=== PATIENT | female | born 1945 | race Caucasian/White ===

== ENCOUNTER 2020-08-09 09:05 | Outpatient (REF) | payer MEDICARE, SELFPAY ==
[2020-08-09 10:10] LABS: MANUAL DIFF FLAG NO
[2020-08-09 10:24] LABS: Basophils Absolute Auto 0.1 X10*3/uL (0.0-0.2); Basophils Percent Auto 1.4 % (0-2); Eosinophils Absolute Auto 0.3 X10*3/uL (0.0-0.4); Eosinophils Percent Auto 3.6 % (0-4); Hematocrit 43.1 % (37-47); Imm Gran Abs Auto 0.09 X10*3/uL (0.00-0.03); Imm Gran Pct Auto 1.2 % (0.0-0.4); Lymphocytes Absolute Auto 2.3 X10*3/uL (1.2-4.9); Lymphocytes Percent Auto 31.1 % (20-40); Mean Corpuscular HGB Conc 32.5 g/dl (31.0-35.0); Mean Corpuscular Volume 89.2 fL (80-98); Mean Platelet Volume 9.8 fL (9.4-12.3); Monocytes Absolute Auto 0.5 X10*3/uL (0.1-1.2); Monocytes Percent Auto 7.3 % (2-11); Neutrophils Percent Auto 55.4 % (45-73); Platelet Count 309 X10*3/uL (160-400); Red Blood Count 4.83 X10*6/uL (4.20-5.50); Red Cell Distribution Width 15.7 % (11.0-16.0); White Blood Count 7.3 X10*3/uL (4.8-10.8)
[2020-08-09 10:41] LABS: Alanine Aminotransferase 23 U/L (0-31); Albumin Level 4.2 g/dL (3.5-5.0); Alkaline Phosphatase 101 U/L (39-117); Anion Gap 14 (12-20); Aspartate Amino Transferase 21 U/L (5-31); Bilirubin Total 0.8 mg/dL (0.0-1.0); Blood Urea Nitrogen 20 mg/dL (9-16); Calcium 9.9 mg/dL (8.4-10.2); Carbon Dioxide 27 mmol/L (22-29); Chloride 104 mmol/L (96-108); Cholesterol 204 mg/dL; Estimated Glomerular Filt Rate 57; Glucose Fasting 91 mg/dL (60-99); HDL Cholesterol 74 mg/dL; LDL Cholesterol Calculated 114 mg/dl; Potassium 4.9 mmol/l (3.3-5.1); Sodium 140 mmol/L (135-145); Total Protein 6.9 g/dL (6.5-8.0); Triglycerides 84 mg/dL
[2020-08-09 11:03] LABS: Vitamin D 25-OH Total 49.4 ng/mL (>30)
[2020-08-09 12:10] LABS: Glucose Urine UA NEG (NEG); Leukocyte Esterase Urine NEG (NEG); Nitrite Urine NEG (NEG); Urine Blood 2+ (NEG); Urine Ketones NEG (NEG); Urine Protein NEG (NEG-TRACE)
[2020-08-09 12:15] LABS: Appearance Urine CLEAR; Color Urine YELLOW
[2020-08-09 12:30] LABS: Squamous Epithelial Cell Urine 1+ /LPF; WBC Urine 0-2 /HPF (0-4)
== END 2020-08-09 09:06 | disposition home or self-care (01) ==
LOC: HO.LAB 09:05
PROVIDERS: PCP Internal Medicine; Visit Provider Internal Medicine
DX: Z00.00 Encounter for general adult medical examination without abnormal findings (principal); I10 Essential (primary) hypertension; J45.20 Mild intermittent asthma, uncomplicated; E55.9 Vitamin D deficiency, unspecified; K21.9 Gastro-esophageal reflux disease without esophagitis; E78.00 Pure hypercholesterolemia, unspecified; R31.29 Other microscopic hematuria; M19.90 Unspecified osteoarthritis, unspecified site; E83.52 Hypercalcemia; N95.8 Other specified menopausal and perimenopausal disorders
CPT/HCPCS: 36415; 80053; 80061; 81001; 81003; 82306; 85025

== ENCOUNTER 2020-08-12 10:04 | Outpatient (REF) | payer MEDICARE, SELFPAY ==
--- NOTE | 2020-08-12 10:08 | MM_ITS ---
EXAMINATION: MM SCREENING DIGITAL BREAST TOMOSYNTHESIS, BILATERAL CLINICAL INFORMATION: Screening. Asymptomatic. The lifetime risk of breast cancer based on the Tyrer-Cuzick Model is 3%. COMPARISON: Mammography: 10/21/2018, 08/28/2017, 06/07/2016 TECHNIQUE: Digital breast tomosynthesis is performed in both the craniocaudal and mediolateral oblique views along with computer-aided detection (CAD). Synthesized 2D images are generated from the tomosynthesis. FINDINGS: The breasts are almost entirely fatty (ACR BI-RADS breast composition Category a). Background stromal and fibroglandular densities are stable. No developing density. There are no significant masses, abnormal calcifications, or other abnormalities. The axilla are unremarkable. MM/MM tomosynthesis screening BI IMPRESSION: No mammographic evidence of malignancy. ASSESSMENT: BI-RADS 1: Negative RECOMMENDATION: Routine annual mammography screening. This patient's information was entered into a reminder system with a target due date for their next mammogram.
== END 2020-08-12 10:05 | disposition home or self-care (01) ==
LOC: HO.MAMMO 10:04
PROVIDERS: Visit Provider Internal Medicine
DX: Z12.31 Encounter for screening mammogram for malignant neoplasm of breast (principal)
CPT/HCPCS: 77063; 77067

== ENCOUNTER 2020-08-18 11:16 | Outpatient (REF) | payer MEDICARE, SELFPAY ==
[2020-08-18 12:54] LABS: Glucose Urine UA NEG (NEG); Leukocyte Esterase Urine NEG (NEG); Nitrite Urine NEG (NEG); Specific Gravity - Urine <= 1.005 (1.005-1.025); Urine Blood 1+ (NEG); Urine Ketones NEG (NEG); Urine Protein NEG (NEG-TRACE)
[2020-08-18 13:06] LABS: Appearance Urine CLEAR; Color Urine YELLOW
[2020-08-18 13:19] LABS: RBC Urine 0-2 /HPF (0); Squamous Epithelial Cell Urine 1+ /LPF; WBC Urine 0-2 /HPF (0-4)
== END 2020-08-18 11:17 | disposition home or self-care (01) ==
LOC: HO.LAB 11:16
PROVIDERS: PCP Internal Medicine; Visit Provider Internal Medicine
DX: R31.29 Other microscopic hematuria (principal)
CPT/HCPCS: 81001; 81003

== ENCOUNTER 2020-08-24 09:41 | Outpatient (REF) | payer MEDICARE, SELFPAY ==
--- NOTE | 2020-08-24 | MM_ITS ---
EXAMINATION: BONE DENSITOMETRY CLINICAL INDICATION: Screening for osteoporosis. COMPARISON: Previous BD dated 08/28/2017 and baseline BD dated 06/24/2008. TECHNIQUE: Using a [employer] DXA System (software version: 13.1) manufactured by [employer], dual-energy x-ray absorptiometry was performed of the lumbar spine and left hip. The images are of good technical quality. Summary results are attached. FINDINGS: AP SPINE L1-L4: There is dextrocurvature and multilevel degenerative changes which may cause overestimation of the lumbar bone mineral density. Current: BMD 1.504 g/cm2, Z-score 4.0, T-score 2.7, normal, 1.0% increase from previous, 3.6% increase from baseline (<5% change is not significant). Prior: BMD 1.489 g/cm2. Baseline: BMD 1.452 g/cm2. LEFT FEMUR, NECK: Current: BMD 0.919 g/cm2, Z-score 0.7, T-score -0.9, normal. Prior: BMD 0.952 g/cm2. Baseline: BMD 0.939 g/cm2. LEFT FEMUR, TOTAL: Current: BMD 1.002 g/cm2, Z-score 1.3, T-score 0.0, normal, 1.8% decrease from previous, 4.5% decrease from baseline (<5% change is not significant). Prior: BMD 1.020 g/cm2. Baseline: BMD 1.049 g/cm2. IDENTIFIED RISK FACTORS: Early menopause, secondary osteoporosis, hysterectomy. HISTORY OF FRACTURE: None listed. MEDICATIONS: Calcium supplements or multivitamin, vitamin D. MM/XR DEXA axial skeleton IMPRESSION: 1. DIAGNOSIS: Normal bone density based on the lowest T-score value of -0.9 in the femoral neck applying World Health Organization criteria. 2. 10-YEAR FRACTURE RISK PREDICTION, FRAX: Major osteoporotic fracture (clinical spine, forearm, hip or shoulder) 8.9%. Hip fracture 1.1%. 3. Treatment Recommendations: NOF guidelines recommend consideration for treatment in postmenopausal women and men age 50 and older presenting with the following: -A hip or vertebral (clinical or morphometric) fracture. -T-score less than or equal to -2.5 at the femoral neck or spine after appropriate evaluation to exclude secondary causes. -Low bone mass at the hip or spine and a 10-year fracture probability by FRAX of greater than or equal to 3% for hip fracture or greater than or equal to 20% for major osteoporotic fracture based on the [place] adapted WHO algorithm. 4. Other Recommendations: All treatment decisions require clinical judgment and consideration of individual patient factors, including patient preferences, comorbidities, previous drug use, risk factors not captured in the FRAX model (e.g. frailty, falls, vitamin D deficiency, increased bone turnover, interval significant decline in bone density) and possible under or overestimation of fracture risk by FRAX. FUTURE SCAN RECOMMENDATION: People with diagnosed cases of osteoporosis or at high risk for fracture should have regular bone mineral density tests. For patients eligible for Medicare, routine testing is allowed once every 2 years. The testing frequency can be increased to one year for patients who have rapidly progressing disease, those who are receiving or discontinuing medical therapy to restore bone mass, or have additional risk factors.
== END 2020-08-24 09:42 | disposition home or self-care (01) ==
LOC: HO.MAMMO 09:41
PROVIDERS: Visit Provider Internal Medicine
DX: Z13.820 Encounter for screening for osteoporosis (principal); N95.8 Other specified menopausal and perimenopausal disorders; Z79.899 Other long term (current) drug therapy; Z90.710 Acquired absence of both cervix and uterus
CPT/HCPCS: 77080

== ENCOUNTER 2020-12-24 10:28 | Outpatient (REF) | payer MEDICARE, SELFPAY ==
[2020-12-24 10:32] LABS: MANUAL DIFF FLAG NO
[2020-12-24 10:37] LABS: Basophils Absolute Auto 0.1 X10*3/uL (0.0-0.2); Basophils Percent Auto 0.6 % (0-2); Eosinophils Absolute Auto 0.3 X10*3/uL (0.0-0.4); Eosinophils Percent Auto 4.4 % (0-4); Hematocrit 23.7 % (37-47); Hemoglobin 7.4 g/dl (12.0-16.0); Imm Gran Abs Auto 0.05 X10*3/uL (0.00-0.03); Imm Gran Pct Auto 0.6 % (0.0-0.4); Lymphocytes Absolute Auto 1.9 X10*3/uL (1.2-4.9); Lymphocytes Percent Auto 24.8 % (20-40); Mean Corpuscular HGB Conc 31.2 g/dl (31.0-35.0); Mean Corpuscular Hemoglobin 30.1 pg (27.0-33.0); Mean Corpuscular Volume 96.3 fL (80-98); Mean Platelet Volume 10.2 fL (9.4-12.3); Monocytes Absolute Auto 0.6 X10*3/uL (0.1-1.2); Monocytes Percent Auto 7.5 % (2-11); Neutrophils Absolute Auto 4.8 X10*3/uL (2.0-8.3); Neutrophils Percent Auto 62.1 % (45-73); Platelet Count 401 X10*3/uL (160-400); Red Blood Count 2.46 X10*6/uL (4.20-5.50); Red Cell Distribution Width 14.4 % (11.0-16.0); White Blood Count 7.8 X10*3/uL (4.8-10.8)
[2020-12-24 11:30] LABS: Alanine Aminotransferase 18 U/L (0-31); Albumin Level 3.6 g/dL (3.5-5.0); Alkaline Phosphatase 94 U/L (39-117); Anion Gap 15 (12-20); Aspartate Amino Transferase 15 U/L (5-31); Bilirubin Total 1.2 mg/dL (0.0-1.0); Blood Urea Nitrogen 13 mg/dL (9-16); Calcium 9.7 mg/dL (8.4-10.2); Carbon Dioxide 24 mmol/L (22-29); Chloride 106 mmol/L (96-108); Estimated Glomerular Filt Rate 56; Glucose Fasting 113 mg/dL (60-99); Potassium 4.3 mmol/L (3.3-5.1); Sodium 141 mmol/L (135-145); Total Protein 5.9 g/dL (6.5-8.0)
== END 2020-12-24 10:29 | disposition home or self-care (01) ==
LOC: HO.LNP 10:28
PROVIDERS: Visit Provider Internal Medicine
DX: Z13.89 Encounter for screening for other disorder (principal)
CPT/HCPCS: 80053; 85025

== ENCOUNTER 2020-12-24 13:57 | Inpatient (IN) | payer MEDICARE, SELFPAY ==
--- NOTE | ~2020-12-24 | XR_ITS ---
EXAMINATION: PORTABLE CHEST 1 VIEW CLINICAL INFORMATION: sob . COMPARISON: 10/01/2018. TECHNIQUE: Portable frontal view of the chest was obtained. FINDINGS: Lungs are hypoexpanded with mild asymmetric elevation the right hemidiaphragm again noted. No superimposed focal infiltrate, effusion, edema, or pneumothorax. Cardiac and mediastinal silhouettes within normal limits for size. Degenerative changes in the left shoulder and postoperative changes in the right shoulder again noted. XR/XR chest 1V IMPRESSION: Hypoexpanded with basilar atelectatic changes similar to the 10/01/2018 exam
[2020-12-24 15:11] VITALS: BP 168/90; PULSE 93; RESP 20; TEMP 36.6; O2SAT 95; BMI 29.2
[2020-12-24 16:38] VITALS: BP 153/79; PULSE 87; RESP 16; O2SAT 98
--- NOTE | 2020-12-24 17:43 | ECG_ITS ---
Test Reason : WEAKNESS Blood Pressure : / mmHG Vent. Rate : 084 BPM Atrial Rate : 084 BPM P-R Int : 176 ms QRS Dur : 110 ms QT Int : 348 ms P-R-T Axes : 049 -44 045 degrees QTc Int : 411 ms Normal sinus rhythm Left axis deviation Voltage criteria for left ventricular hypertrophy Abnormal ECG When compared with ECG of 15-APR-2012 11:09, Incomplete right bundle branch block is no longer Present Referred By: Vanessa Zamorano Electronically Signed By:AYALA CARTER MD
--- NOTE | 2020-12-24 17:45 | ED.WEAKNESS ---
HPI - Weakness General Chief complaint: Weakness Stated complaint: ulcer? Time Seen by Provider: 12/24/20 17:24 Source: patient Mode of arrival: ambulatory Limitations: no limitations History of Present Illness HPI Narrative: Patient comes emergency room complaining of weakness for 7 days. Patient states that for the last week she has been feeling very fatigued, especially with exertion. Patient states that she feels lightheaded with exertion, has mild shortness of breath, no chest pain. Patient states this is all new to her. Her symptoms started after an episode bloody vomiting and dark stool 7 days ago. Patient reports that she has not vomited since then, her stool has been normal color. Patient denies abdominal pain. Patient states that she had a colonoscopy approximately 2-3 years ago. Patient states that she has been previously told that she had polyps. For her last colonoscopy, she was told that she would not need any further colonoscopies Related Data Allergies Allergy/AdvReac Type Severity Reaction Status Date / Time morphine [MORPHINE] Allergy Severe VOMITING/CO Unverified 04/22/20 15:10 NSTIPATION lisinopril Allergy Unknown cough Verified 03/04/20 00:00 Review of Systems Review of Systems: Constitutional : No Weight loss, No Fever, No Chills, No Night Sweats, complaining of fatigue, no malaise ENT/Mouth : No Hearing loss, No Ear Pain, No Nasal Congestion, No Sinus Pain, No Hoarseness, No sore throat, No Rhinorrhea, No Swallowing Difficulty Eyes: No Eye Pain, No Swelling, No Redness, No Foreign Body, No Discharge, No Vision Changes Cardiovascular : No Chest Pain, complaining of mild exertional dyspnea, No Orthopnea, No Edema, No Palpitations Respiratory : No Cough, No Sputum, No Wheezing, No Smoke Exposure Gastrointestinal : 1 episode of bloody vomiting, 1 episode of dark stool, no abdominal pain, no further vomiting or diarrhea Genitourinary : no irregular bleeding, No Dysuria, No Urinary Frequency, No Hematuria, No Urinary Incontinence, No Urgency, No Flank Pain, No Urinary Flow Changes, No Hesitancy Musculoskeletal : No joint pain, No Myalgias, No Joint Swelling Skin : No Skin Lesions, No rash Neuro : No Weakness, No Numbness, No Paresthesias, No Loss of Consciousness, No Dizziness, No Headache Psych : No Anxiety/Panic, No Depression, No SI/HI/AH/VH, No Social Issues, Heme/Lymph: No Bruising, No Bleeding,No Lymphadenopathy Endocrine : No Polyuria, No Polydipsia, No Temperature Intolerance REPLACED BY [facility] Past Medical History Medical History (Updated 12/24/20 @ 19:57 by Vanessa Zamorano MD) Asthma Cholecystectomy planned Social History Social History Alcohol intake: current Alcohol intake frequency: 3 or more drinks per day Alcohol type: wine Smoking Status: Never smoker Use of substances other than those prescribed or required for medical reasons: No Advance Directives: No Advance Directives Information Provided: Yes Physical Exam Vital Signs: Vital Signs: Last Vital Signs Temp 97.9 F 12/24/20 15:11 Pulse 87 12/24/20 16:38 Resp 16 12/24/20 16:38 BP 153/79 H 12/24/20 16:38 Pulse Ox 98 12/24/20 16:38 Body Mass Index 29.2 Course Course Course Narrative: I discussed the labs with the patient, her hemoglobin levels dropped from this morning. Guaiac positive. I discussed with the patient that I would recommend a blood transfusion given her symptoms and the anemia. I discussed the risks versus benefits of a blood transfusion, Patient agrees to blood transfusion. Consent signed. I spoke with Dr. Schneider, patient is being admitted to the hospitalist service, patient will need a GI consult in the morning. Patient aware she is being admitted, agrees with plan. MDM - Weakness Lab Data Result diagrams: 12/24/20 18:26 12/24/20 18:26 Labs: Lab Results 12/24/20 12/24/20 12/24/20 Range/Units 18:16 18:16 18:16 WBC (4.8-10.8) X10*3/uL RBC (4.20-5.50) X10*6/uL Hgb (12.0-16.0) g/dl Hct (37-47) % MCV (80-98) fL MCH (27.0-33.0) pg MCHC (31.0-35.0) g/dl RDW (11.0-16.0) % Plt Count (160-400) X10*3/uL MPV (9.4-12.3) fL Immature Gran % (Auto) (0.0-0.4) % Neut % (Auto) (45-73) % Lymph % (Auto) (20-40) % Long % (Auto) (2-11) % Eos % (Auto) (0-4) % Baso % (Auto) (0-2) % Lymph # (Auto) (1.2-4.9) X10*3/uL Long # (Auto) (0.1-1.2) X10*3/uL Eos # (Auto) (0.0-0.4) X10*3/uL Baso # (Auto) (0.0-0.2) X10*3/uL Abs Immat Gran (auto) (0.00-0.03) X10*3/uL Absolute Neuts (auto) (2.0-8.3) X10*3/uL Absolute Nucleated RBC (0.0-0.012) X10*3/uL Nucleated RBC % (auto) (0.0-0.2) /100WBC PT (10.8-13.0) SEC INR (0.9-1.1) APTT (24.1-38.0) SEC Sodium (135-145) mmol/L Potassium (3.3-5.1) mmol/L Chloride (96-108) mmol/L Carbon Dioxide (22-29) mmol/L Anion Gap (12-20) BUN (9-16) mg/dL Creatinine (0.5-1.4) mg/dL Estim Creat Clear Calc Estimated GFR Random Glucose (60-115) mg/dL Calcium (8.4-10.2) mg/dL Total Bilirubin (0.0-1.0) mg/dL Direct Bilirubin (0.0-0.5) mg/dL AST (5-31) U/L ALT (0-31) U/L Alkaline Phosphatase (39-117) U/L Troponin I High Sens 5.9 (<3.5-17.0) ng/L B-Natriuretic Peptide 11 (<100) pg/mL Total Protein (6.5-8.0) g/dL Albumin (3.5-5.0) g/dL Stool Occult Blood POSITIVE (NEGATIVE) Blood Type O Positive Antibody Screen NEGATIVE Crossmatch See Detail 12/24/20 12/24/20 12/24/20 Range/Units 18:26 18:26 18:26 WBC 7.1 (4.8-10.8) X10*3/uL RBC 2.28 L (4.20-5.50) X10*6/uL Hgb 6.9 L* (12.0-16.0) g/dl Hct 21.4 L (37-47) % MCV 93.9 (80-98) fL MCH 30.3 (27.0-33.0) pg MCHC 32.2 (31.0-35.0) g/dl RDW 14.1 (11.0-16.0) % Plt Count 353 (160-400) X10*3/uL MPV 9.8 (9.4-12.3) fL Immature Gran % (Auto) 0.4 (0.0-0.4) % Neut % (Auto) 62.1 (45-73) % Lymph % (Auto) 24.2 (20-40) % Long % (Auto) 7.7 (2-11) % Eos % (Auto) 4.9 H (0-4) % Baso % (Auto) 0.7 (0-2) % Lymph # (Auto) 1.7 (1.2-4.9) X10*3/uL Long # (Auto) 0.6 (0.1-1.2) X10*3/uL Eos # (Auto) 0.4 (0.0-0.4) X10*3/uL Baso # (Auto) 0.1 (0.0-0.2) X10*3/uL Abs Immat Gran (auto) 0.03 (0.00-0.03) X10*3/uL Absolute Neuts (auto) 4.4 (2.0-8.3) X10*3/uL Absolute Nucleated RBC 0.000 (0.0-0.012) X10*3/uL Nucleated RBC % (auto) 0.0 (0.0-0.2) /100WBC PT 11.2 (10.8-13.0) SEC INR 0.9 (0.9-1.1) APTT 24.9 (24.1-38.0) SEC Sodium 139 (135-145) mmol/L Potassium 4.1 (3.3-5.1) mmol/L Chloride 105 (96-108) mmol/L Carbon Dioxide 26 (22-29) mmol/L Anion Gap 12 (12-20) BUN 12 (9-16) mg/dL Creatinine 0.85 (0.5-1.4) mg/dL Estim Creat Clear Calc 58.3 Estimated GFR > 60 Random Glucose 96 (60-115) mg/dL Calcium 9.8 (8.4-10.2) mg/dL Total Bilirubin 0.9 (0.0-1.0) mg/dL Direct Bilirubin 0.4 (0.0-0.5) mg/dL AST 16 (5-31) U/L ALT 17 (0-31) U/L Alkaline Phosphatase 91 (39-117) U/L Troponin I High Sens (<3.5-17.0) ng/L B-Natriuretic Peptide (<100) pg/mL Total Protein 5.9 L (6.5-8.0) g/dL Albumin 3.7 (3.5-5.0) g/dL Stool Occult Blood (NEGATIVE) Blood Type Antibody Screen Crossmatch Imaging Data Chest x-ray: Radiologist's impression: FINDINGS: Lungs are hypoexpanded with mild asymmetric elevation the right hemidiaphragm again noted. No superimposed focal infiltrate, effusion, edema, or pneumothorax. Cardiac and mediastinal silhouettes within normal limits for size. Degenerative changes in the left shoulder and postoperative changes in the right shoulder again noted. XR/XR chest 1V IMPRESSION: Hypoexpanded with basilar atelectatic changes similar to the 10/01/2018 exam Discharge Plan Discharge Clinical Impression: Anemia, Weakness, Acute GI bleeding Patient Disposition: Admitted As Inpatient
[2020-12-24 18:31] LABS: OBS Int Ctl Valid YES; OBS1 POSITIVE (NEGATIVE)
[2020-12-24 18:36] LABS: MANUAL DIFF FLAG NO
[2020-12-24 18:38] LABS: Basophils Absolute Auto 0.1 X10*3/uL (0.0-0.2); Basophils Percent Auto 0.7 % (0-2); Eosinophils Absolute Auto 0.4 X10*3/uL (0.0-0.4); Eosinophils Percent Auto 4.9 % (0-4); Hematocrit 21.4 % (37-47); Imm Gran Abs Auto 0.03 X10*3/uL (0.00-0.03); Imm Gran Pct Auto 0.4 % (0.0-0.4); Lymphocytes Absolute Auto 1.7 X10*3/uL (1.2-4.9); Lymphocytes Percent Auto 24.2 % (20-40); Mean Corpuscular HGB Conc 32.2 g/dl (31.0-35.0); Mean Corpuscular Hemoglobin 30.3 pg (27.0-33.0); Mean Corpuscular Volume 93.9 fL (80-98); Mean Platelet Volume 9.8 fL (9.4-12.3); Monocytes Absolute Auto 0.6 X10*3/uL (0.1-1.2); Monocytes Percent Auto 7.7 % (2-11); Neutrophils Absolute Auto 4.4 X10*3/uL (2.0-8.3); Neutrophils Percent Auto 62.1 % (45-73); Platelet Count 353 X10*3/uL (160-400); Red Blood Count 2.28 X10*6/uL (4.20-5.50); Red Cell Distribution Width 14.1 % (11.0-16.0); White Blood Count 7.1 X10*3/uL (4.8-10.8)
[2020-12-24 18:40] LABS: Hemoglobin 6.9 g/dl (12.0-16.0)
[2020-12-24 18:44] LABS: INTERNATIONAL NORM RATIO 0.9 (0.9-1.1); Prothrombin Time 11.2 SEC (10.8-13.0)
[2020-12-24 18:47] LABS: Partial Thromboplastin Time 24.9 SEC (24.1-38.0)
[2020-12-24 19:02] LABS: B Type Natriuretic Peptide 11 pg/mL (<100); Troponin-I High Sensitivity 5.9 ng/L (<3.5-17.0)
[2020-12-24 19:05] LABS: Alanine Aminotransferase 17 U/L (0-31); Albumin Level 3.7 g/dL (3.5-5.0); Alkaline Phosphatase 91 U/L (39-117); Anion Gap 12 (12-20); Aspartate Amino Transferase 16 U/L (5-31); Bilirubin Direct 0.4 mg/dL (0.0-0.5); Bilirubin Total 0.9 mg/dL (0.0-1.0); Blood Urea Nitrogen 12 mg/dL (9-16); Calcium 9.8 mg/dL (8.4-10.2); Carbon Dioxide 26 mmol/L (22-29); Chloride 105 mmol/L (96-108); Creatinine Clr Calc Pharmacy 58.3; Estimated Glomerular Filt Rate > 60; Glucose Random 96 mg/dL (60-115); Potassium 4.1 mmol/L (3.3-5.1); Sodium 139 mmol/L (135-145); Total Protein 5.9 g/dL (6.5-8.0)
[2020-12-24 20:43] VITALS: BP 135/64; PULSE 100; RESP 16; TEMP 36.6
[2020-12-24 21:02] VITALS: BP 128/63; PULSE 98; RESP 16; TEMP 36.6
[2020-12-24 21:47] VITALS: BP 129/63; PULSE 88; RESP 13; TEMP 36.8
--- NOTE | 2020-12-24 23:07 | P.HPHOSP_ITS ---
History of Present Illness Date of Service: 12/24/20 Chief Complaint: anemia This 75-year-old female who presents to the hospital with abnormal labs. Patient reports that about 1 week ago she had 1 episode of coffee ground emesis, and black stool on the same day, and has had to headache, weakness, shortness of breath, and dizziness which prompted her to be concerned about COVID 19 infection. Patient reports that she went and tested for COVID-19 which came negative, therefore went to her PCP with these complaints, labs were done and she was found to be anemic and prompted to come to the hospital. Patient reports that she uses Advil 3-4 times a week for generalized pains and aches She denies having any abdominal pain, currently no nausea or vomiting, no recurrent episodes of coffee-ground emesis or black tarry stools, no headache, change in vision, no chest pain, no cough but continues to have shortness of breath mostly with exertion, lightheaded, no urinary symptoms and no lower extremity edema Vitals on arrival significant for temp of 97.9?, heart rate of 93, respiratory rate of 20, blood pressure 168/90, satting 95% on room air Labs significant for WBC count of 7.1, hemoglobin of 6.9 (14 on 08/26), hematocrit of 43.1, total bili of 1.2, labs otherwise unremarkable, COVID-19 negative, Stool occult blood positive EKG shows normal sinus rhythm Chest x-ray shows hyperexpanded lungs with basilar atelectasis similar to previous study History as below and confirmed with pt Review of Systems Review of Systems: Yes all other systems are reviewed and are negative [facility] Medical History Asthma Cholecystectomy planned Social History Household Members: Spouse Housing: House Do you presently have visiting nurse or other home services: No Alcohol intake: current Alcohol intake frequency: 3 or more drinks per day Alcohol type: wine Smoking Status: Never smoker Use of substances other than those prescribed or required for medical reasons: No Have you been hit, kicked, punched, or otherwise hurt by someone within the past year? If so, by whom?: No Do you feel safe in your current relationship?: Yes Is there a partner from a previous relationship who is making you feel unsafe now?: No Are you made to feel afraid or neglected: No Advance Directives: No Advance Directives Information Provided: Yes Do you have thoughts of harming others: None Do you have a plan to hurt others: No Plan Recently lost weight without trying: No Eating poorly because of decreased appetite: No Nutrition Risks: No Nutritional Risk Patient : No : No Poor oral hygiene: No Meds Allergies Allergy/AdvReac Type Severity Reaction Status Date / Time morphine [MORPHINE] Allergy Severe VOMITING/CO Unverified 04/22/20 15:10 NSTIPATION lisinopril Allergy Unknown cough Verified 03/04/20 00:00 Physical Exam Vital Signs and Narrative: Vital Signs: Last Vital Signs Temp 98.2 F 12/24/20 21:47 Pulse 88 12/24/20 21:47 Resp 13 12/24/20 21:47 BP 129/63 12/24/20 21:47 Pulse Ox 98 12/24/20 16:38 Body Mass Index 29.2 Const: General: cooperative and no acute distress Orientation/consciousness: patient oriented x3 Eyes: General: appearance normal, both eyes and all related structures Pupils: Equal, round and reactive pupils present Resp: Effort & Inspection: normal respiratory effort and able to speak in complete sentences Auscultation: clear to auscultation bilaterally Cardio: Rate: regular rate Rhythm: regular rhythm GI: Palpation (GI): Soft to palpation Auscultation: normal bowel sounds Skin: General skin exam: no rashes or lesions noted Neuro: General: patient oriented x3 Cranial nerves: Yes Equal, round and reactive pupils present Cognition (Neuro): normal cognition Extrem: General: Yes normal to inspection and Yes no pedal edema Results Labs CBC and Chem 7: 12/24/20 18:26 12/24/20 18:26 Labs: Laboratory Results - last 24 hr 12/24/20 12/24/20 12/24/20 18:16 18:16 18:16 MCV MCH MCHC RDW Plt Count MPV Immature Gran % (Auto) Neut % (Auto) Lymph % (Auto) [place] % (Auto) Eos % (Auto) Baso % (Auto) Lymph # (Auto) [place] # (Auto) Eos # (Auto) Baso # (Auto) Abs Immat Gran (auto) Absolute Neuts (auto) Absolute Nucleated RBC Nucleated RBC % (auto) PT INR APTT Anion Gap Estim Creat Clear Calc Estimated GFR Random Glucose Calcium Total Bilirubin Direct Bilirubin AST ALT Alkaline Phosphatase Troponin I High Sens 5.9 B-Natriuretic Peptide 11 Total Protein Albumin Stool Occult Blood POSITIVE Blood Type O Positive Antibody Screen NEGATIVE Crossmatch See Detail 12/24/20 12/24/20 12/24/20 18:26 18:26 18:26 MCV 93.9 MCH 30.3 MCHC 32.2 RDW 14.1 Plt Count 353 MPV 9.8 Immature Gran % (Auto) 0.4 Neut % (Auto) 62.1 Lymph % (Auto) 24.2 [place] % (Auto) 7.7 Eos % (Auto) 4.9 H Baso % (Auto) 0.7 Lymph # (Auto) 1.7 [place] # (Auto) 0.6 Eos # (Auto) 0.4 Baso # (Auto) 0.1 Abs Immat Gran (auto) 0.03 Absolute Neuts (auto) 4.4 Absolute Nucleated RBC 0.000 Nucleated RBC % (auto) 0.0 PT 11.2 INR 0.9 APTT 24.9 Anion Gap 12 Estim Creat Clear Calc 58.3 Estimated GFR > 60 Random Glucose 96 Calcium 9.8 Total Bilirubin 0.9 Direct Bilirubin 0.4 AST 16 ALT 17 Alkaline Phosphatase 91 Troponin I High Sens B-Natriuretic Peptide Total Protein 5.9 L Albumin 3.7 Stool Occult Blood Blood Type Antibody Screen Crossmatch Imaging Radiologist's Impressions: Impressions Chest X-Ray 12/24/20 17:46 IMPRESSION: Hypoexpanded with basilar atelectatic changes similar to the 10/01/2018 exam Assessment and Plan (1) Anemia: Status: Acute (2) Weakness: Status: Acute (3) Acute GI bleeding: Status: Acute This is a 75-year-old female who presents to the hospital with anemia # normocytic anemia - possibly secondary to GI bleed - had 1 episode of coffee-ground emesis about a week ago as well as black stools - hemoglobin of 6.9 with baseline around 14 in August - has positive stool occult blood - symptomatic with weakness, dizziness, shortness of breath - receiving 1 unit of PRBC in the ED - will follow H&H - consult GI # acute GI bleed - possibly upper GI in the setting of NSAID use - will start on IV PPI 40 b.i.d. - NPO - GI consult # coffee-ground emesis - 1 episode about 1 wk ago - possibly associated with gastric ulcers given her NSAIDs use - PPI IV BID - Discontinue NSAIDs- discussed w pt in details to avoid all nsaids in future # weakness - 2/2 above - receiving 1 unit of prbc # asthma - not in exacerbation DVT prophylaxis: SCDs
[2020-12-24 23:54] LABS: COVID-19 Test Negative (Negative)
[2020-12-25 00:24] VITALS: BP 134/83; PULSE 87; RESP 16; TEMP 36.6; O2SAT 96
[2020-12-25 01:15] VITALS: BP 136/68; PULSE 89; RESP 18; TEMP 36.2; O2SAT 95
[2020-12-25] MEDS: 0.9 % Sodium Chloride Flush 3 ML SYRINGE IVFLUSH ×3 (02:26→16:12)
[2020-12-25 04:00] VITALS: BP 115/67; PULSE 84; RESP 16; TEMP 36.4; O2SAT 96
[2020-12-25] MEDS: Pantoprazole Sodium 40 MG/10 ML VIAL IVPUSH ×2 (05:51→16:12)
[2020-12-25 06:51] VITALS: BP 98/50; PULSE 82; RESP 20; TEMP 36.1; O2SAT 98
[2020-12-25 08:54] LABS: Hematocrit 26.8 % (37-47); Hemoglobin 8.7 g/dl (12.0-16.0); Mean Corpuscular HGB Conc 32.5 g/dl (31.0-35.0); Mean Corpuscular Hemoglobin 30.7 pg (27.0-33.0); Mean Corpuscular Volume 94.7 fL (80-98); Mean Platelet Volume 9.7 fL (9.4-12.3); Platelet Count 339 X10*3/uL (160-400); Red Blood Count 2.83 X10*6/uL (4.20-5.50); Red Cell Distribution Width 13.6 % (11.0-16.0); White Blood Count 5.9 X10*3/uL (4.8-10.8)
[2020-12-25 10:59] VITALS: BP 137/70; PULSE 90; RESP 18; TEMP 36.6; O2SAT 98
--- NOTE | 2020-12-25 11:10 | P.PNIM_ITS ---
Subjective Subjective Date of Service: 12/25/20 Interval History: the patient was seen and evaluated this morning Sitting in her chair, feels comfortable overall Feels more energy after blood transfusion Denies any fever, chills or shortness of breath No reported other overnight events. Systemic review: No fever, chills but reports generalized weakness No chest pain, palpitation No shortness of breath or coughing No abdominal pain, nausea or vomiting No urinary symptoms No any rash or wounds Physical Exam Vital Signs: Vital Signs: Last Vital Signs Temp 98 F 12/25/20 10:59 Pulse 90 12/25/20 10:59 Resp 18 12/25/20 10:59 BP 137/70 12/25/20 10:59 Pulse Ox 98 12/25/20 10:59 Body Mass Index 29.2 Const: Other: Constitutional : Alert, oriented, not in distress, looks pale Neck : Normal inspection, Supple Cardiovascular : RRR, S1 S2, no lower extremity edema Respiratory : Good bilateral air entry, no crackles, wheezes or rhonchi Gastrointestinal: soft, lax, Normal bowel sounds, Non tender Skin : Warm/Dry, No rash Neurological : Alert & oriented x3, No focal deficit Objective Data Current Medications Generic Name Dose Route Start Last Admin Trade Name Freq PRN Reason Stop Dose Admin Acetaminophen 650 mg 12/25/20 00:45 Acetaminophen 325 Mg Tablet PO Q6H PRN Pain, Mild (Pain Scale 1-3) Atorvastatin Calcium 20 mg 12/26/20 09:00 Atorvastatin Calcium 20 Mg Tablet PO DAILY RUPINDER Docusate Sodium 100 mg 12/25/20 00:45 Docusate Sodium 100 Mg Capsule PO DAILY PRN Constipation Ondansetron HCl 4 mg 12/25/20 00:45 Ondansetron Hcl 4 Mg/2 Ml Vial IVPUSH Q8H PRN Nausea and Vomiting Pantoprazole Sodium 40 mg 12/25/20 06:30 12/25/20 05:51 Pantoprazole Sodium 40 Mg/10 Ml Vial IVPUSH 40 mg BID@0630,1630 RUPINDER Administration Sodium Chloride 3 ml 12/25/20 00:45 12/25/20 09:14 0.9 % Sodium Chloride Flush 3 Ml Syringe IVFLUSH 3 ml QSHIFT RUPINDER Administration Spironolactone 25 mg 12/26/20 09:00 Spironolactone 25 Mg Tablet PO DAILY [facility] Protocol Vitamin D 50 mcg 12/26/20 09:00 Cholecalciferol (Vitamin D3) 25 Mcg Tablet PO DAILY [facility] Labs CBC & Chem 7: 12/25/20 08:23 12/24/20 18:26 Assessment and Plan (1) Anemia: Status: Acute (2) Weakness: Status: Acute (3) Acute GI bleeding: Status: Acute Assessment and Plan: This is a 75-year-old female who presents to the hospital with anemia Blood-loss anemia GI bleed, symptomatic anemia Likely upper GI bleed with reported hematemesis hemoglobin of 6.9 with baseline around 14 in August positive stool occult blood symptomatic with weakness, dizziness, shortness of breath receiving 1 unit of PRBC in the ED with good response as repeated HP of 8.7 Pending evaluation by GI Start diet Continue IV PPI 40 b.i.d. Discontinue NSAIDs Generalized weakness Secondary to progressive anemia To do physical therapy when more stable asthma not in exacerbation DVT prophylaxis SCDs
[2020-12-25 15:52] VITALS: BP 120/57; PULSE 90; RESP 16; TEMP 36.2; O2SAT 95
--- NOTE | 2020-12-25 16:27 | MHC.CM.PN ---
NURSE RN L AND D NTOE ELECTRONIC MEDICAL RECORD REVIEWED ALONG WITH CASE DISCUSSED WITH STAFF NURSE, MET WITH PATIENT [facility], PATIENT IS ACTIVE ,INDEPENDENT IN ALL ADLS AND MOBILITY WITH PUT ANY DEVICES. SHE HAS NO VNA/NO DME SERVICES IN THE HOME. HE DOES DRINK WINE DAILY BUT HAS HAD NO PROBLEMS ,(NO FALLS, NO BLACK OUT, DOES NOT DRIVE WHEN HAVING A DRINK NO WITH DRAWLS ) DISCHARGE PLAN HOME WITH NO SERVICES PCP DR CHASE CHAVEZ PT TO CALL FOR [facility] DISCHARGE FOLLOW UP HCP IS HER ED , REQUESTED SHE MAIL IN [place] COPY OF HER HCP TRANPORTATION FAMILY MEDICARE IMMM COMPLETED
[2020-12-25] MEDS: Acetaminophen 325 MG TABLET 650 MG PO (18:46)
--- NOTE | 2020-12-25 21:41 | PM.GICN ---
History of Present Illness Data of Consult Service Date: 12/26/20 Requesting physician: Aric Wilson Primary Care Provider: John Garrett MD HPI Reason for consult: anemia 75-year-old female w hx of HLP who I am seeing for assessment of acute blood loss anemia. PCP had checked labs as she had been c/o headache, weakness, shortness of breath, and dizziness for 1 week. SHe had also noted 1 episode of coffee ground emesis, and black stool. She denies abdominal pain, and no further nausea or vomiting, no recurrent episodes of coffee-ground emesis or black tarry stools, no headache, change in vision, no chest pain, no cough but ++ shortness of breath mostly with exertion, lightheaded, no urinary symptoms and no lower extremity edema Labs revealed anemia so she was sent to the ED> hx is remarkable for advil use 3-4 times a week for generalized pains and aches. not on PPI or H2 robin LABS:WBC count of 7.1, hemoglobin of 6.9 (14 on 08/26), hematocrit of 43.1, total bili of 1.2, labs otherwise unremarkable, COVID-19 negative, Received one unit of blood with appropriate increase in HGB to 8.7 g/dl Chest x-ray shows hyperexpanded lungs with basilar atelectasis similar to previous study Review of Systems Review of Systems: Constitutional : No Weight loss, No Fever, No Chills, No Night Sweats, complaining of fatigue, no malaise ENT/Mouth : No Hearing loss, No Ear Pain, No Nasal Congestion, No Sinus Pain, No Hoarseness, No sore throat, No Rhinorrhea, No Swallowing Difficulty Eyes: No Eye Pain, No Swelling, No Redness, No Foreign Body, No Discharge, No Vision Changes Cardiovascular : No Chest Pain, complaining of mild exertional dyspnea, No Orthopnea, No Edema, No Palpitations Respiratory : No Cough, No Sputum, No Wheezing, No Smoke Exposure Gastrointestinal : 1 episode of bloody vomiting, 1 episode of dark stool, no abdominal pain, no further vomiting or diarrhea Genitourinary : no irregular bleeding, No Dysuria, No Urinary Frequency, No Hematuria, No Urinary Incontinence, No Urgency, No Flank Pain, No Urinary Flow Changes, No Hesitancy Musculoskeletal : No joint pain, No Myalgias, No Joint Swelling Skin : No Skin Lesions, No rash Neuro : No Weakness, No Numbness, No Paresthesias, No Loss of Consciousness, No Dizziness, No Headache Psych : No Anxiety/Panic, No Depression, No SI/HI/AH/VH, No Social Issues, Heme/Lymph: No Bruising, No Bleeding,No Lymphadenopathy Endocrine : No Polyuria, No Polydipsia, No Temperature Intolerance Yes all other systems are reviewed and are negative [facility] Past Medical History Medical History Asthma Cholecystectomy planned Social History Social History Household Members: Spouse Housing: House Do you presently have visiting nurse or other home services: No Alcohol intake: current Alcohol intake frequency: 3 or more drinks per day Alcohol type: wine Smoking Status: Never smoker Use of substances other than those prescribed or required for medical reasons: No Currently Displaying Signs/Symptoms of Drug Intoxication Withdrawal: No Have you been hit, kicked, punched, or otherwise hurt by someone within the past year? If so, by whom?: No Do you feel safe in your current relationship?: Yes Is there a partner from a previous relationship who is making you feel unsafe now?: No Are you made to feel afraid or neglected: No Advance Directives: No Advance Directives Information Provided: Yes Do you have thoughts of harming others: None Do you have a plan to hurt others: No Plan Recently lost weight without trying: No Eating poorly because of decreased appetite: No Nutrition Risks: No Nutritional Risk Patient : No : No Poor oral hygiene: No service: No Meds Allergies Allergy/AdvReac Type Severity Reaction Status Date / Time morphine [MORPHINE] Allergy Severe VOMITING/CO Unverified 04/22/20 15:10 NSTIPATION lisinopril Allergy Unknown cough Verified 03/04/20 00:00 Active Medications: Current Medications Generic Name Dose Route Start Last Admin Trade Name Freq PRN Reason Stop Dose Admin Acetaminophen 650 mg 12/25/20 00:45 12/25/20 18:46 Acetaminophen 325 Mg Tablet PO 650 mg Q6H PRN Administration Pain, Mild (Pain Scale 1-3) Atorvastatin Calcium 20 mg 12/26/20 09:00 Atorvastatin Calcium 20 Mg Tablet PO DAILY RUPINDER Docusate Sodium 100 mg 12/25/20 00:45 Docusate Sodium 100 Mg Capsule PO DAILY PRN Constipation Ondansetron HCl 4 mg 12/25/20 00:45 Ondansetron Hcl 4 Mg/2 Ml Vial IVPUSH Q8H PRN Nausea and Vomiting Pantoprazole Sodium 40 mg 12/25/20 06:30 12/25/20 16:12 Pantoprazole Sodium 40 Mg/10 Ml Vial IVPUSH 40 mg BID@0630,1630 [facility] Administration Sodium Chloride 3 ml 12/25/20 00:45 12/25/20 16:12 0.9 % Sodium Chloride Flush 3 Ml Syringe IVFLUSH 3 ml QSHIFT [facility] Administration Spironolactone 25 mg 12/26/20 09:00 Spironolactone 25 Mg Tablet PO DAILY [facility] Protocol Vitamin D 50 mcg 12/26/20 09:00 Cholecalciferol (Vitamin D3) 25 Mcg Tablet PO DAILY [facility] Home Medications Medication Instructions Recorded Confirmed Last Taken Type atorvastatin 20 mg PO DAILY 12/25/20 12/25/20 1 Day Ago History ~12/24/20 cholecalciferol (vitamin D3) 50 mcg PO DAILY 12/25/20 12/25/20 1 Day Ago History [Vitamin D3] ~12/24/20 spironolactone 25 mg PO DAILY 12/25/20 12/25/20 1 Day Ago History ~12/24/20 Physical Exam Vital Signs: Vital Signs: Last Vital Signs Temp 97.1 F 12/25/20 15:52 Pulse 90 12/25/20 15:52 Resp 16 12/25/20 15:52 BP 120/57 L 12/25/20 15:52 Pulse Ox 95 12/25/20 15:52 Body Mass Index 29.2 Const: Other: Constitutional : Alert, oriented, not in distress, looks pale Neck : Normal inspection, Supple Cardiovascular : RRR, S1 S2, no lower extremity edema Respiratory : Good bilateral air entry, no crackles, wheezes or rhonchi Gastrointestinal: soft, lax, Normal bowel sounds, Non tender Skin : Warm/Dry, No rash Neurological : Alert & oriented x3, No focal deficit General: cooperative and no acute distress Orientation/consciousness: patient oriented x3 Eyes: General: appearance normal, both eyes and all related structures Pupils: Equal, round and reactive pupils present Resp: Effort & Inspection: normal respiratory effort and able to speak in complete sentences Auscultation: clear to auscultation bilaterally Cardio: Rate: regular rate Rhythm: regular rhythm GI: Palpation (GI): Soft to palpation Auscultation: normal bowel sounds Skin: General skin exam: no rashes or lesions noted Neuro: General: patient oriented x3 Cranial nerves: Yes Equal, round and reactive pupils present Cognition (Neuro): normal cognition Extrem: General: Yes normal to inspection and Yes no pedal edema Psych: Appearance: grossly normal Results Labs CBC & Chem 7: 12/26/20 07:28 12/26/20 07:28 Labs: Short CBC 12/25/20 Range/Units 08:23 WBC 5.9 (4.8-10.8) X10*3/uL Hgb 8.7 L D (12.0-16.0) g/dl Hct 26.8 L D (37-47) % Plt Count 339 (160-400) X10*3/uL ECG- LAD, SR< no acute changes Assessment and Plan (1) Anemia: Status: Acute (2) Weakness: Status: Acute (3) Acute GI bleeding: Status: Acute 1/ Acute blood loss anemia, possible due to PUD, gastritis, esophagitis, NSAID related injury, MW tear PLAN: 1/ Cont with PPI BID and perform EGD 2/ can allow clears, up till 2 hrs before EGD 3/ fluid and vol resuscitate as doing Procedures Date of Service Date of Service: 12/26/20
[2020-12-26] VITALS (8 sets, daily range): BP systolic 113–151; BP diastolic 60–74; PULSE 65–89; RESP 15–20; TEMP 36.1–36.6; O2SAT 93–98
[2020-12-26] MEDS: 0.9 % Sodium Chloride Flush 3 ML SYRINGE IVFLUSH ×2 (01:39→08:30)
[2020-12-26] MEDS: Pantoprazole Sodium 40 MG/10 ML VIAL IVPUSH (05:47)
[2020-12-26 08:17] LABS: Hematocrit 30.6 % (37-47); Hemoglobin 9.2 g/dl (12.0-16.0); Mean Corpuscular HGB Conc 30.1 g/dl (31.0-35.0); Mean Corpuscular Volume 99.7 fL (80-98); Mean Platelet Volume 11.1 fL (9.4-12.3); Platelet Count 310 X10*3/uL (160-400); Red Blood Count 3.07 X10*6/uL (4.20-5.50); White Blood Count 5.7 X10*3/uL (4.8-10.8)
[2020-12-26] MEDS: Spironolactone 25 MG TABLET PO (08:30)
[2020-12-26] MEDS: Atorvastatin Calcium 20 MG TABLET PO (08:30)
[2020-12-26 08:40] LABS: Anion Gap 12 (12-20); Blood Urea Nitrogen 14 mg/dL (9-16); Calcium 9.7 mg/dL (8.4-10.2); Carbon Dioxide 25 mmol/L (22-29); Chloride 108 mmol/L (96-108); Creatinine Clr Calc Pharmacy 60.4; Estimated Glomerular Filt Rate > 60; Glucose Random 92 mg/dL (60-115); Potassium 4.3 mmol/L (3.3-5.1); Sodium 141 mmol/L (135-145)
--- NOTE | 2020-12-26 09:16 | HO.ANESPROP2 ---
[facility] Active Problems Active Problems: All Active Problems (Updated 12/24/20 @ 19:57 by Vanessa Zamorano MD) Anemia (Acute) Weakness (Acute) Acute GI bleeding (Acute) Past Medical History Medical History Asthma Cholecystectomy planned Social History Social History Household Members: Spouse Housing: House Do you presently have visiting nurse or other home services: No Alcohol intake: current Alcohol intake frequency: 3 or more drinks per day Alcohol type: wine Smoking Status: Never smoker Use of substances other than those prescribed or required for medical reasons: No Currently Displaying Signs/Symptoms of Drug Intoxication Withdrawal: No Have you been hit, kicked, punched, or otherwise hurt by someone within the past year? If so, by whom?: No Do you feel safe in your current relationship?: Yes Is there a partner from a previous relationship who is making you feel unsafe now?: No Are you made to feel afraid or neglected: No Advance Directives: No Advance Directives Information Provided: Yes Do you have thoughts of harming others: None Do you have a plan to hurt others: No Plan Recently lost weight without trying: No Eating poorly because of decreased appetite: No Nutrition Risks: No Nutritional Risk Patient : No : No Poor oral hygiene: No service: No Meds Allergies Allergy/AdvReac Type Severity Reaction Status Date / Time morphine [MORPHINE] Allergy Severe VOMITING/CO Unverified 04/22/20 15:10 NSTIPATION lisinopril Allergy Unknown cough Verified 03/04/20 00:00 Active Medications: Current Medications Generic Name Dose Route Start Last Admin Trade Name Freq PRN Reason Stop Dose Admin Acetaminophen 650 mg 12/25/20 00:45 12/25/20 18:46 Acetaminophen 325 Mg Tablet PO 650 mg Q6H PRN Administration Pain, Mild (Pain Scale 1-3) Atorvastatin Calcium 20 mg 12/26/20 09:00 12/26/20 08:30 Atorvastatin Calcium 20 Mg Tablet PO 20 mg DAILY RUPINDER Administration Docusate Sodium 100 mg 12/25/20 00:45 Docusate Sodium 100 Mg Capsule PO DAILY PRN Constipation Ondansetron HCl 4 mg 12/25/20 00:45 Ondansetron Hcl 4 Mg/2 Ml Vial IVPUSH Q8H PRN Nausea and Vomiting Pantoprazole Sodium 40 mg 12/25/20 06:30 12/26/20 05:47 Pantoprazole Sodium 40 Mg/10 Ml Vial IVPUSH 40 mg BID@0630,1630 [facility] Administration Sodium Chloride 3 ml 12/25/20 00:45 12/26/20 08:30 0.9 % Sodium Chloride Flush 3 Ml Syringe IVFLUSH 3 ml QSHIFT [facility] Administration Spironolactone 25 mg 12/26/20 09:00 12/26/20 08:30 Spironolactone 25 Mg Tablet PO 25 mg DAILY [facility] Administration Protocol Vitamin D 50 mcg 12/26/20 09:00 12/26/20 08:30 Cholecalciferol (Vitamin D3) 25 Mcg Tablet PO Not Given DAILY [facility] Home Medications Medication Instructions Recorded Confirmed Last Taken Type atorvastatin 20 mg PO DAILY 12/25/20 12/25/20 1 Day Ago History ~12/24/20 cholecalciferol (vitamin D3) 50 mcg PO DAILY 12/25/20 12/25/20 1 Day Ago History [Vitamin D3] ~12/24/20 spironolactone 25 mg PO DAILY 12/25/20 12/25/20 1 Day Ago History ~12/24/20 Exam Exam Date and Time: December 26, 2020 0916 Height,Weight and Vital Signs: Height 5 ft 4 in Weight 77.111 kg Last Vital Signs Temp 98 F 12/26/20 07:07 Pulse 81 12/26/20 07:07 Resp 20 12/26/20 07:07 BP 138/67 12/26/20 07:07 Pulse Ox 96 12/26/20 07:07 Pertinent Lab Results Pertinent Lab Results: Laboratory Tests 12/24/20 12/24/20 12/24/20 18:16 18:16 18:16 WBC RBC Hgb Hct MCV MCH MCHC RDW Plt Count MPV Immature Gran % (Auto) Neut % (Auto) Lymph % (Auto) [place] % (Auto) Eos % (Auto) Baso % (Auto) Lymph # (Auto) [place] # (Auto) Eos # (Auto) Baso # (Auto) Abs Immat Gran (auto) Absolute Neuts (auto) Absolute Nucleated RBC Nucleated RBC % (auto) PT INR APTT Sodium Potassium Chloride Carbon Dioxide Anion Gap BUN Creatinine Estim Creat Clear Calc Estimated GFR Random Glucose Calcium Total Bilirubin Direct Bilirubin AST ALT Alkaline Phosphatase Troponin I High Sens 5.9 B-Natriuretic Peptide 11 Total Protein Albumin Stool Occult Blood POSITIVE COVID-19 ([facility]E) COVID-19 [facility] Com Blood Type O Positive Antibody Screen NEGATIVE Crossmatch See Detail 12/24/20 12/24/20 12/24/20 18:26 18:26 18:26 WBC 7.1 RBC 2.28 L Hgb 6.9 L* Hct 21.4 L MCV 93.9 MCH 30.3 MCHC 32.2 RDW 14.1 Plt Count 353 MPV 9.8 Immature Gran % (Auto) 0.4 Neut % (Auto) 62.1 Lymph % (Auto) 24.2 [place] % (Auto) 7.7 Eos % (Auto) 4.9 H Baso % (Auto) 0.7 Lymph # (Auto) 1.7 [place] # (Auto) 0.6 Eos # (Auto) 0.4 Baso # (Auto) 0.1 Abs Immat Gran (auto) 0.03 Absolute Neuts (auto) 4.4 Absolute Nucleated RBC 0.000 Nucleated RBC % (auto) 0.0 PT 11.2 INR 0.9 APTT 24.9 Sodium 139 Potassium 4.1 Chloride 105 Carbon Dioxide 26 Anion Gap 12 BUN 12 Creatinine 0.85 Estim Creat Clear Calc 58.3 Estimated GFR > 60 Random Glucose 96 Calcium 9.8 Total Bilirubin 0.9 Direct Bilirubin 0.4 AST 16 ALT 17 Alkaline Phosphatase 91 Troponin I High Sens B-Natriuretic Peptide Total Protein 5.9 L Albumin 3.7 Stool Occult Blood COVID-19 ([facility]E) COVID-19 [facility] Com Blood Type Antibody Screen Crossmatch 12/24/20 12/25/20 12/26/20 23:31 08:23 07:28 WBC 5.9 5.7 RBC 2.83 L D 3.07 L Hgb 8.7 L D 9.2 L Hct 26.8 L D 30.6 L MCV 94.7 99.7 H D MCH 30.7 30.0 MCHC 32.5 30.1 L RDW 13.6 14.0 Plt Count 339 310 MPV 9.7 11.1 Immature Gran % (Auto) Neut % (Auto) Lymph % (Auto) [place] % (Auto) Eos % (Auto) Baso % (Auto) Lymph # (Auto) [place] # (Auto) Eos # (Auto) Baso # (Auto) Abs Immat Gran (auto) Absolute Neuts (auto) Absolute Nucleated RBC 0.000 0.000 Nucleated RBC % (auto) 0.0 0.0 PT INR APTT Sodium Potassium Chloride Carbon Dioxide Anion Gap BUN Creatinine Estim Creat Clear Calc Estimated GFR Random Glucose Calcium Total Bilirubin Direct Bilirubin AST ALT Alkaline Phosphatase Troponin I High Sens B-Natriuretic Peptide Total Protein Albumin Stool Occult Blood COVID-19 ([facility]) Negative COVID-19 Clin Com See Note Blood Type Antibody Screen Crossmatch 12/26/20 07:28 WBC RBC Hgb Hct MCV MCH MCHC RDW Plt Count MPV Immature Gran % (Auto) Neut % (Auto) Lymph % (Auto) [place] % (Auto) Eos % (Auto) Baso % (Auto) Lymph # (Auto) [place] # (Auto) Eos # (Auto) Baso # (Auto) Abs Immat Gran (auto) Absolute Neuts (auto) Absolute Nucleated RBC Nucleated RBC % (auto) PT INR APTT Sodium 141 Potassium 4.3 Chloride 108 Carbon Dioxide 25 Anion Gap 12 BUN 14 Creatinine 0.82 Estim Creat Clear Calc 60.4 Estimated GFR > 60 Random Glucose 92 Calcium 9.7 Total Bilirubin Direct Bilirubin AST ALT Alkaline Phosphatase Troponin I High Sens B-Natriuretic Peptide Total Protein Albumin Stool Occult Blood COVID-19 ([facility]) COVID-19 Clin Com Blood Type Antibody Screen Crossmatch Airway Mallampati Class: II TM Dist: >3cm Neck ROM: Full
--- NOTE | 2020-12-26 09:23 | MHC.SHP ---
Pre-Procedural Eval Section A The patient is an INPATIENT: Yes The History & Physical has been completed within 30 days and I have reviewed it.: Yes Section B Chief Complaint: Acute anemia, gi bleed Allergies: Allergies Allergy/AdvReac Type Severity Reaction Status Date / Time morphine [MORPHINE] Allergy Severe VOMITING/CO Unverified 04/22/20 15:10 NSTIPATION lisinopril Allergy Unknown cough Verified 03/04/20 00:00 Plan Diagnosis/Plan: Unchanged I have reviewed the history and physical and performed a pertinent physical examination on my patient. No changes have occurred unless specified.
--- NOTE | 2020-12-26 09:43 | P.BOP_ITS ---
Brief Operative Note Date of Service: 12/26/20 Pre-op diagnosis: anemia Post-op diagnosis: same Procedure: see op note Surgeon: Karla Pelayo MD Anesthesia: MAC Was an Genetic Supervisor used for this Procedure?: No Estimated blood loss (mL): 0 Condition: stable Disposition: PACU
--- NOTE | 2020-12-26 09:44 | W.PM.OPN ---
Operative Note Operative Note Date of Service: 12/26/20 Narrative: Procedure Description: EGD FLEXIBLE TRANSORAL UPPER GASTROINTESTINAL ENDOSCOPY UPPER ENDOSCOPY Consent: Indications for the procedure and potential complications of bleeding, perforation, reaction to medications and missed diagnosis were discussed with the patient and informed consent was obtained. Instrument: Olympus GIF H 190 J mid size upper endoscope Monitoring: Vital signs and clinical assessment, continuous EKG monitoring, Pulse oximetry, Carbon Dioxide monitoring and blood pressure monitoring were done throughout the procedure. Procedure: The patient was placed in the left lateral decubitis position and pre-procedure medications were administered and a bite block was placed. The endoscope was inserted into the mouth and advanced under direct vision to the third part of duodenum. A careful inspection was made as the upper endoscope was withdrawn including a retroflexed examination of the proximal stomach; Findings and interventions are described below. Findings: Larynx:normal Esophagus: GE junction at 38 cm, diaphragm hiatus at 38 cm, mild LA grade A esophagitis Stomach: Patchy gastric erythema with erosions at antrum. Biopsies were obtained to r/o H pylori but one site was persistently oozing so one clip applied with cessation of bleeding.. Grade 2 flap valve on retroflexed examination of the cardia. There were 2 ulcers noted at the antrum, measuring 8-10 mm in size, clean based with no active bleeding or visible vessels seen Duodenum: Scattered erythema and denudation of mucosa consistent with peptic injury Intervention: Biopsies as noted above, clip applied Impression/Findings: gastric ulcers, Claude grade III (rebleeding risk <5%) erosive gastritis esophagitis peptic duodenitis PLAN: High dose PPI e.g pantoprazole 40 mg BID, titrate down thereafter, if needs to be on aspirin then would keep on low dose PPI, avoid other nsaid, can use tylenol or REYNOLDS 2 inhibitors if really needed if H pylori pos then treat allow regular diet and can allow home later today if no other clinical issues o/p follow up and repeat EGD in about 3-4 months to ensure healing
--- NOTE | 2020-12-26 10:16 | PC.NURSE ---
1010 DR GONG SPEAKING WITH PT RE EXAM. PT AWAKE ALERT PREP FOR TRANSFER BACK TO FLOOR MONITORS DCD IVF DC PT HAS HEARING AID LEFT EAR ONLY.
--- NOTE | 2020-12-26 13:09 | P.DS_ITS ---
DS: Providers Provider Date of Service: 12/26/20 Date of admission: 12/24/20 23:02 Primary care physician: John Garrett MD Consults: 12/25/20 00:45 Consult to Gastroenterology Routine Consulting Provider: Karla Pelayo Reason for consultation: GI bleed Has provider been notified: No DS: Diagnosis Discharge Diagnosis (1) Anemia: Status: Acute (2) Weakness: Status: Acute (3) Acute GI bleeding: Status: Acute (4) Gastric ulcer: Status: Acute (5) Erosive gastritis: Status: Acute (6) Peptic duodenitis: Status: Acute (7) Symptomatic anemia: Status: Acute DS: Medications Discharge Medications Home Medications: Home Medications Medication Instructions Recorded Confirmed atorvastatin 20 mg PO DAILY 12/25/20 12/25/20 cholecalciferol (vitamin D3) 50 mcg PO DAILY 12/25/20 12/25/20 [Vitamin D3] spironolactone 25 mg PO DAILY 12/25/20 12/25/20 Previous Rx's Medication Instructions Recorded pantoprazole 40 mg PO BID #60 tab 12/26/20 DS: Summary Hospital Course Hospital Course: Admission note HPI This 75-year-old female who presents to the hospital with abnormal labs. Patient reports that about 1 week ago she had 1 episode of coffee ground emesis, and black stool on the same day, and has had to headache, weakness, shortness of breath, and dizziness which prompted her to be concerned about COVID 19 infection. Patient reports that she went and tested for COVID-19 which came negative, therefore went to her PCP with these complaints, labs were done and she was found to be anemic and prompted to come to the hospital. Patient reports that she uses Advil 3-4 times a week for generalized pains and aches She denies having any abdominal pain, currently no nausea or vomiting, no recurrent episodes of coffee-ground emesis or black tarry stools, no headache, change in vision, no chest pain, no cough but continues to have shortness of breath mostly with exertion, lightheaded, no urinary symptoms and no lower extremity edema Vitals on arrival significant for temp of 97.9?, heart rate of 93, respiratory rate of 20, blood pressure 168/90, satting 95% on room air Labs significant for WBC count of 7.1, hemoglobin of 6.9 (14 on 08/26), hematocrit of 43.1, total bili of 1.2, labs otherwise unremarkable, COVID-19 negative, Stool occult blood positive EKG shows normal sinus rhythm Chest x-ray shows hyperexpanded lungs with basilar atelectasis similar to previous study Hospital course The patient was admitted to the hospital for evaluation of upper GI bleed with reported hematemesis. Hemoglobin level of 6.9 improved to 8.7 with 1 unit transfusion of the blood. She was started on IV pantoprazole as well with no recurrent episode of hematemesis in the hospital. Hold NSAIDs were discontinued as she was evaluated by greige goods marker who recommended treatment with pantoprazole 40 mg b.i.d. for the result of An endoscopy study was done by from GI showing gastric ulcers, Claude grade III (rebleeding risk <5%). erosive gastritis, esophagitis, peptic duodenitis. Plan to discharge home on b.i.d. pantoprazole. To follow-up on H pylori infection and treat if positive Time Spent with Patient Time attestation: Total time spent providing and/or coordinating discharge services: Discharge coordination time: Greater than 30 minutes Quality: Stroke Does the patient have a stroke diagnosis?: No Physical Exam Vital Signs: Vital Signs: Last Vital Signs Temp 98 F 12/26/20 11:37 Pulse 84 12/26/20 11:37 Resp 20 12/26/20 11:37 BP 142/74 H 12/26/20 11:37 Pulse Ox 96 12/26/20 11:37 Body Mass Index 29.2 Const: Other: Constitutional : Alert, oriented, not in distress, looks pale Neck : Normal inspection, Supple Cardiovascular : RRR, S1 S2, no lower extremity edema Respiratory : Good bilateral air entry, no crackles, wheezes or rhonchi Gastrointestinal: soft, lax, Normal bowel sounds, Non tender Skin : Warm/Dry, No rash Neurological : Alert & oriented x3, No focal deficit DS: Data Data Completed and Pending Pending studies at discharge: Pending at discharge 12/26/20 09:55 Surgical [PTH] Routine Labs on day of discharge: Laboratory Results - last 24 hr 12/26/20 12/26/20 07:28 07:28 WBC 5.7 RBC 3.07 L Hgb 9.2 L Hct 30.6 L MCV 99.7 H D MCH 30.0 MCHC 30.1 L RDW 14.0 Plt Count 310 MPV 11.1 Absolute Nucleated RBC 0.000 Nucleated RBC % (auto) 0.0 Sodium 141 Potassium 4.3 Chloride 108 Carbon Dioxide 25 Anion Gap 12 BUN 14 Creatinine 0.82 Estim Creat Clear Calc 60.4 Estimated GFR > 60 Random Glucose 92 Calcium 9.7 Imaging Chest x-ray: Radiologist's impression: ITS Impressions Chest X-Ray 12/24/20 17:46 IMPRESSION: Hypoexpanded with basilar atelectatic changes similar to the 10/01/2018 exam Discharge Plan Discharge Patient Disposition: Home, Self-Care Discharge Diagnosis: Gastric ulcer, erosive gastritis, esophagitis, peptic duodenitis Referrals: John Garrett MD [Primary Care Provider] - 1 Week Discharge Medications: New pantoprazole 40 mg tablet,delayed release (DR/EC) 40 mg PO BID Qty: 60 RF: 1 Continued atorvastatin 20 mg Tablet 20 mg PO DAILY RF: 0 spironolactone 25 mg Tablet 25 mg PO DAILY RF: 0 cholecalciferol (vitamin D3) [Vitamin D3] 50 mcg (2,000 unit) Capsule 50 mcg PO DAILY RF: 0 Discharge Orders: Discharge Order (Routine); Ordered 12/26/20 Ordered By: Aric Wilson Diet: advance to usual diet Activity on Discharge: As tolerated Stand Alone Forms: Patient Portal Discharge page Care Plan Goals: Read below Health Concerns: Read below Plan of Treatment: You were admitted to the hospital for evaluation of increased fatigue and reported vomiting blood. Found to have significant anemia requiring blood transfusion with good response as your pending improved significantly. You were evaluated by greige goods marker who did an upper endoscopy showing inflammation in your esophagus, stomach and duodenum with multiple ulcers in your stomach. Suggested treatment with acid suppressant and avoid using Advil or other NSAIDs Assessment: Continue pantoprazole 40 mg twice Daily To follow up with Gastroenterology as outpatient for repeat EGD Stop using Advil, ibuprofen, naproxen and other NSAIDs You can use Celebrex and Tylenol for pain control
--- NOTE | 2020-12-26 13:35 | MHC.CM.PN ---
nurse home care associate note electronic medical record and discharge instructions reviewed patient is aware that she will be discharged home todayno services discharge plan home with no services pcp-patient to follwo up with pcp for post hospitla discharge follow up' transportation magdy
== END 2020-12-26 14:16 | disposition home or self-care (01) | DRG 368 ==
LOC: HO.ED 19:57 → HO.EDOVER 23:08 → HO.S3 12-25
PROVIDERS: Internal Medicine Gastroenterology; Admitting Provider Internal Medicine; Emergency Provider Emergency Medicine; PCP Internal Medicine; Visit Provider Student in an Organized Health Care Education/Training Program
PROC: 0DJ08ZZ Inspection of Upper Intestinal Tract, Via Natural or Artificial Opening Endoscopic (ICD-10-PCS; CPT 43235; principal; 2020-12-26 09:00)
DX: K20.91 Esophagitis, unspecified with bleeding (principal); K29.71 Gastritis, unspecified, with bleeding; K25.4 Chronic or unspecified gastric ulcer with hemorrhage; K29.81 Duodenitis with bleeding; D62 Acute posthemorrhagic anemia; J45.909 Unspecified asthma, uncomplicated; Z20.822 Contact with and (suspected) exposure to COVID-19; Z88.5 Allergy status to narcotic agent; Z79.1 Long term (current) use of non-steroidal anti-inflammatories (NSAID); Z79.899 Other long term (current) drug therapy
CPT/HCPCS: 36415; 71045; 80048; 80053; 80076; 82272; 83880; 84484; 85025; 85027; 85610; 85730; 86850; 86900; 86901; 86923; 87635; 88305; 88342; 93005; 97161; 99284; P9016

== ENCOUNTER 2021-01-07 10:56 | Outpatient (REF) | payer MEDICARE, SELFPAY ==
[2021-01-07 11:12] LABS: MANUAL DIFF FLAG NO
[2021-01-07 12:27] LABS: Basophils Absolute Auto 0.1 X10*3/uL (0.0-0.2); Basophils Percent Auto 1.7 % (0-2); Eosinophils Absolute Auto 0.3 X10*3/uL (0.0-0.4); Eosinophils Percent Auto 4.5 % (0-4); Hematocrit 32.7 % (37-47); Imm Gran Abs Auto 0.04 X10*3/uL (0.00-0.03); Imm Gran Pct Auto 0.6 % (0.0-0.4); Lymphocytes Absolute Auto 2.6 X10*3/uL (1.2-4.9); Lymphocytes Percent Auto 35.9 % (20-40); Mean Corpuscular HGB Conc 30.6 g/dl (31.0-35.0); Mean Corpuscular Hemoglobin 27.3 pg (27.0-33.0); Mean Corpuscular Volume 89.3 fL (80-98); Mean Platelet Volume 10.2 fL (9.4-12.3); Monocytes Absolute Auto 0.6 X10*3/uL (0.1-1.2); Neutrophils Absolute Auto 3.5 X10*3/uL (2.0-8.3); Neutrophils Percent Auto 49.3 % (45-73); Platelet Count 496 X10*3/uL (160-400); Red Blood Count 3.66 X10*6/uL (4.20-5.50); Red Cell Distribution Width 15.2 % (11.0-16.0); White Blood Count 7.1 X10*3/uL (4.8-10.8)
== END 2021-01-07 10:57 | disposition home or self-care (01) ==
LOC: HO.LNP 10:56
PROVIDERS: PCP Internal Medicine; Visit Provider Internal Medicine
DX: K25.0 Acute gastric ulcer with hemorrhage (principal)
CPT/HCPCS: 85025

== ENCOUNTER 2021-02-08 10:30 | Outpatient (REF) | payer MEDICARE, SELFPAY ==
[2021-02-08 10:33] LABS: MANUAL DIFF FLAG NO
[2021-02-08 10:44] LABS: Basophils Absolute Auto 0.1 X10*3/uL (0.0-0.2); Eosinophils Absolute Auto 0.5 X10*3/uL (0.0-0.4); Eosinophils Percent Auto 5.1 % (0-4); Hematocrit 36.3 % (37-47); Hemoglobin 11.4 g/dl (12.0-16.0); Imm Gran Abs Auto 0.05 X10*3/uL (0.00-0.03); Imm Gran Pct Auto 0.5 % (0.0-0.4); Lymphocytes Absolute Auto 2.2 X10*3/uL (1.2-4.9); Lymphocytes Percent Auto 22.9 % (20-40); Mean Corpuscular HGB Conc 31.4 g/dl (31.0-35.0); Mean Corpuscular Hemoglobin 25.7 pg (27.0-33.0); Mean Corpuscular Volume 81.8 fL (80-98); Mean Platelet Volume 10.1 fL (9.4-12.3); Monocytes Absolute Auto 0.7 X10*3/uL (0.1-1.2); Monocytes Percent Auto 7.6 % (2-11); Neutrophils Absolute Auto 6.1 X10*3/uL (2.0-8.3); Neutrophils Percent Auto 62.9 % (45-73); Platelet Count 465 X10*3/uL (160-400); Red Blood Count 4.44 X10*6/uL (4.20-5.50); Red Cell Distribution Width 16.2 % (11.0-16.0); White Blood Count 9.7 X10*3/uL (4.8-10.8)
[2021-02-08 11:11] LABS: Alanine Aminotransferase 17 U/L (0-31); Albumin Level 4.1 g/dL (3.5-5.0); Alkaline Phosphatase 113 U/L (39-117); Aspartate Amino Transferase 22 U/L (5-31); Bilirubin Direct 0.4 mg/dL (0.0-0.5); Bilirubin Total 1.3 mg/dL (0.0-1.0); Cholesterol 155 mg/dL; HDL Cholesterol 44 mg/dL; LDL Cholesterol Calculated 86 mg/dl; Total Protein 6.9 g/dL (6.5-8.0); Triglycerides 127 mg/dL
[2021-02-08 11:30] LABS: Reflex LDLD? No
== END 2021-02-08 10:31 | disposition home or self-care (01) ==
LOC: HO.LNP 10:30
PROVIDERS: Visit Provider Internal Medicine
DX: K25.0 Acute gastric ulcer with hemorrhage (principal); E78.00 Pure hypercholesterolemia, unspecified
CPT/HCPCS: 80061; 80076; 85025

== ENCOUNTER → 2021-07-05 13:35 | Outpatient (BNVA) | payer MEDICARE, SELFPAY | PROVIDERS: PCP Internal Medicine; Referring Provider Internal Medicine; Visit Provider Internal Medicine Cardiovascular Disease | DX: I10 Essential (primary) hypertension (principal); I44.4 Left anterior fascicular block | CPT/HCPCS: 99212 ==

== ENCOUNTER 2021-08-18 10:39 | Outpatient (REF) | payer MEDICARE, SELFPAY ==
[2021-08-18 10:42] LABS: MANUAL DIFF FLAG NO
[2021-08-18 10:53] LABS: Basophils Absolute Auto 0.1 X10*3/uL (0.0-0.2); Basophils Percent Auto 0.3 % (0-2); Hematocrit 43.2 % (37.0-47.0); Hemoglobin 14.5 g/dl (12.0-16.0); Imm Gran Abs Auto 0.13 X10*3/uL (0.00-0.03); Imm Gran Pct Auto 0.8 % (0.0-0.4); Lymphocytes Absolute Auto 2.1 X10*3/uL (1.2-4.9); Mean Corpuscular HGB Conc 33.6 g/dl (31.0-35.0); Mean Corpuscular Hemoglobin 30.5 pg (27.0-33.0); Mean Corpuscular Volume 90.8 fL (80.0-98.0); Mean Platelet Volume 10.2 fL (9.4-12.3); Monocytes Absolute Auto 0.5 X10*3/uL (0.1-1.2); Monocytes Percent Auto 2.9 % (2-11); Neutrophils Absolute Auto 13.5 x10*3/uL (2.0-8.3); Platelet Count 355 X10*3/uL (160-400); Red Blood Count 4.76 X10*6/uL (4.20-5.50); Red Cell Distribution Width 13.3 % (11.0-16.0); White Blood Count 16.3 X10*3/uL (4.8-10.8)
[2021-08-18 11:00] LABS: Appearance Urine CLEAR; Color Urine YELLOW; Glucose Urine UA NEG (NEG); Leukocyte Esterase Urine NEG (NEG); Nitrite Urine NEG (NEG); Urine Blood 2+ (NEG); Urine Ketones NEG (NEG); Urine Protein NEG (NEG-TRACE)
[2021-08-18 11:33] LABS: Alanine Aminotransferase 33 U/L (0-31); Albumin Level 4.5 g/dL (3.5-5.0); Alkaline Phosphatase 105 U/L (39-117); Anion Gap 15 (12-20); Aspartate Amino Transferase 25 U/L (5-31); Bilirubin Total 0.9 mg/dL (0.0-1.0); Blood Urea Nitrogen 24 mg/dL (9-16); Calcium 11.1 mg/dL (8.4-10.2); Carbon Dioxide 24 mmol/L (22-29); Chloride 107 mmol/L (96-108); Cholesterol 207 mg/dL; Estimated Glomerular Filt Rate 51; Glucose Fasting 131 mg/dL (60-99); HDL Cholesterol 71 mg/dL; LDL Cholesterol Calculated 110 mg/dl; Potassium 4.7 mmol/L (3.3-5.1); Sodium 141 mmol/L (135-145); Total Protein 7.9 g/dL (6.5-8.0); Triglycerides 133 mg/dL
[2021-08-18 11:54] LABS: Vitamin D 25-OH Total 59.8 ng/mL (>30); WBC Urine 0 /HPF (0-4)
== END 2021-08-18 10:40 | disposition home or self-care (01) ==
LOC: HO.LNP 10:39
PROVIDERS: Visit Provider Internal Medicine
DX: Z00.00 Encounter for general adult medical examination without abnormal findings (principal); I10 Essential (primary) hypertension; E55.9 Vitamin D deficiency, unspecified; E83.52 Hypercalcemia; E78.00 Pure hypercholesterolemia, unspecified; R31.29 Other microscopic hematuria
CPT/HCPCS: 80053; 80061; 81001; 81003; 82306; 85025

== ENCOUNTER 2021-09-06 10:39 | Outpatient (REF) | payer MEDICARE, SELFPAY ==
[2021-09-06 10:41] LABS: MANUAL DIFF FLAG NO
[2021-09-06 10:59] LABS: Basophils Absolute Auto 0.1 X10*3/uL (0.0-0.2); Basophils Percent Auto 0.8 % (0-2); Eosinophils Absolute Auto 0.2 X10*3/uL (0.0-0.4); Hematocrit 43.4 % (37.0-47.0); Hemoglobin 14.2 g/dl (12.0-16.0); Imm Gran Abs Auto 0.06 X10*3/uL (0.00-0.03); Imm Gran Pct Auto 0.7 % (0.0-0.4); Lymphocytes Absolute Auto 2.1 X10*3/uL (1.2-4.9); Lymphocytes Percent Auto 23.5 % (20-40); Mean Corpuscular HGB Conc 32.7 g/dl (31.0-35.0); Mean Corpuscular Hemoglobin 30.5 pg (27.0-33.0); Mean Corpuscular Volume 93.3 fL (80.0-98.0); Mean Platelet Volume 9.8 fL (9.4-12.3); Monocytes Absolute Auto 0.6 X10*3/uL (0.1-1.2); Monocytes Percent Auto 7.1 % (2-11); Neutrophils Absolute Auto 5.9 x10*3/uL (2.0-8.3); Neutrophils Percent Auto 65.9 % (45-73); Platelet Count 319 X10*3/uL (160-400); Red Blood Count 4.65 X10*6/uL (4.20-5.50); Red Cell Distribution Width 13.5 % (11.0-16.0)
== END 2021-09-06 10:40 | disposition home or self-care (01) ==
LOC: HO.LNP 10:39
PROVIDERS: PCP Internal Medicine; Visit Provider Internal Medicine
DX: D72.829 Elevated white blood cell count, unspecified (principal)
CPT/HCPCS: 85025

== ENCOUNTER 2021-09-23 09:08 | Outpatient (REF) | payer MEDICARE, SELFPAY ==
--- NOTE | ~2021-09-23 | MM_ITS ---
EXAMINATION: MM SCREENING DIGITAL BREAST TOMOSYNTHESIS, BILATERAL CLINICAL INFORMATION: Screening. Asymptomatic. The lifetime risk of breast cancer based on the Tyrer-Cuzick Model is 2%. COMPARISON: Mammography: 08/12/2020, 10/21/2018, 08/28/2017 TECHNIQUE: Digital breast tomosynthesis is performed in both the craniocaudal and mediolateral oblique views along with computer-aided detection (CAD). Synthesized 2D images are generated from the tomosynthesis. FINDINGS: The breasts are almost entirely fatty (ACR BI-RADS breast composition Category a). Parenchymal pattern is similar to prior studies. Background stromal densities are stable. There is no interval mass or developing density or architectural abnormality. Scattered bilateral benign calcifications are again seen. The axilla and skin contours are unremarkable. MM/MM tomosynthesis screening BI IMPRESSION: No mammographic evidence of malignancy. ASSESSMENT: BI-RADS 1: Negative RECOMMENDATION: Routine annual mammography screening. This patient's information was entered into a reminder system with a target due date for their next mammogram.
== END 2021-09-23 09:09 | disposition home or self-care (01) ==
LOC: HO.MAMMO 09:08
PROVIDERS: PCP Internal Medicine; Visit Provider Internal Medicine
DX: Z12.31 Encounter for screening mammogram for malignant neoplasm of breast (principal)
CPT/HCPCS: 77063; 77067

== ENCOUNTER 2021-10-23 23:02 | Emergency (ER) | payer MEDICARE, SELFPAY ==
--- NOTE | ~2021-10-23 | CT_ITS ---
EXAMINATION: CT HEAD WITHOUT CONTRAST CT CERVICAL SPINE WITHOUT CONTRAST CLINICAL INFORMATION: Fall. Trauma. COMPARISON: None. TECHNIQUE: Imaging was performed from the skull base to vertex without intravenous administration of contrast. In addition, helical noncontrast CT imaging was acquired through the cervical spine and source images were reviewed along with axial reconstructions and sagittal and coronal MPRs. [This CT examination was performed using dose optimization techniques as appropriate, variously including the following: *Automated exposure control *Adjustment of mA and/or kV according to patient size (this includes techniques or standardized protocols for targeted exams where dose is matched to indication/reason for exam; i.e. extremities or head) *Use of iterative reconstruction technique] DLP: 728+659.64+10.25 mGy-cm FINDINGS: HEAD: No intracranial mass, hemorrhage, or midline shift is visualized. There is generalized global volume loss. There is moderate prominence of the ventricles and the sulci . There is moderate hypodensity of the periventricular white matter due to chronic small vessel ischemic disease. There are vascular calcifications of the internal carotid arteries bilaterally. No extra-axial collections are identified. The paranasal sinuses and mastoid air cells are well aerated. CERVICAL SPINE: There is no evidence of acute cervical spine fracture. Vertebral bodies remain normal in height. Cervical vertebrae have normal alignment. There is multilevel degenerative spondylosis of the cervical spine with disc height narrowing and endplate spurs and facet joint arthrosis No pre- or paravertebral soft tissue abnormality is identified. Limited assessment of the lung apices is unremarkable. CT/CT cervical spine wo con IMPRESSION: 1. No acute intracranial pathology. 2. No CT evidence of acute cervical spine fracture or traumatic subluxation
--- NOTE | ~2021-10-23 | CT_ITS ---
EXAMINATION: CT CHEST WITHOUT CONTRAST CLINICAL INFORMATION: Left chest wall pain. Fall. COMPARISON: Radiograph from 12/24/2020 TECHNIQUE: Multidetector volumetric CT imaging of the chest was done. Axial MIP volume rendering provided. Sagittal and coronal reformatted images were obtained. This CT examination was performed using dose optimization techniques as appropriate, variously including the following: *Automated exposure control *Adjustment of mA and/or kV according to patient size (this includes techniques or standardized protocols for targeted exams where dose is matched to indication/reason for exam; i.e. extremities or head) *Use of iterative reconstruction technique DLP: 1941 mGy-cm, in conjunction with head and C-spine CT . FINDINGS: ANALYTIC PROGRAMMER: Right shoulder reverse arthroplasty. LUNGS: The central airways are patent. There is a moderate left pneumothorax. Opacification in the left lower lung could represent contusion in this setting. Minimal bibasilar atelectasis. Bandlike opacities of the right base and anterior lung favor atelectasis. No right-sided pneumothorax. No pleural effusion. MEDIASTINUM: Normal heart size. No pericardial effusion. No mediastinal lymphadenopathy. The visualized thyroid gland is unremarkable. AXILLA: No lymphadenopathy. UPPER ABDOMEN: Cholecystectomy. Calcified lymph nodes in the right upper abdomen periportal region. No acute abnormality. OSSEOUS STRUCTURES: Left lateral fourth, fifth, sixth, and seventh rib fractures. Associated gas in the adjacent soft tissues. Degenerative changes throughout the spine. Reverse total right shoulder arthroplasty appears aligned appropriately. Advanced degenerative change of the left glenohumeral joint with narrowing and osteophyte formation. CT/CT chest wo con IMPRESSION: Left lateral fourth through seventh rib fractures. Associated moderate left pneumothorax. This critical result was discussed with Gabbie Christine MD by telephone at 10/24/2021 1:01 AM and it was ascertained that the content and urgency of the report was understood at the time of direct communication. Fleischner guidelines were followed.
--- NOTE | ~2021-10-23 | CT_ITS ---
EXAMINATION: CT CHEST WITH CONTRAST CT ABDOMEN AND PELVIS WITH CONTRAST CLINICAL INFORMATION: Chest tube placement. Fall with left flank pain. COMPARISON: 10/24/2021 TECHNIQUE: Multidetector volumetric imaging was performed through the chest, abdomen and pelvis following the administration of 85 mL of Omnipaque 350 intravenous contrast. Sagittal and coronal reformatted images were obtained on the technologist's workstation. Axial MIP volume rendering provided. This CT examination was performed using dose optimization techniques as appropriate, variously including the following: *Automated exposure control *Adjustment of mA and/or kV according to patient size (this includes techniques or standardized protocols for targeted exams where dose is matched to indication/reason for exam; i.e. extremities or head) *Use of iterative reconstruction technique DLP: 1409 mGy-cm. FINDINGS: CHEST: Lungs: The central airways are patent. There is a left-sided pigtail catheter chest tube now in place. There is a tiny residual left-sided pneumothorax. Mild opacity in the lingula could represent contusion. Dependent atelectasis bilaterally. No pleural effusion. Mediastinum: The heart is of normal size. There is no pericardial effusion. Central vascular structures are unremarkable. No hilar or mediastinal lymphadenopathy. Chest Wall/Axilla: No lymphadenopathy. No chest wall mass. Subcutaneous emphysema of the left chest wall again noted adjacent to the rib fractures. ABDOMEN/PELVIS: Liver, Gallbladder, Biliary Tree: The liver is normal in size, shape, and attenuation. No focal hepatic lesion or biliary ductal dilatation is present. Cholecystectomy. Pancreas: Unremarkable. Spleen: Unremarkable. Adrenal Glands: Unremarkable. Kidneys and Ureters: The kidneys are normal in size, shape, and attenuation. Multiple areas of scarring in the right kidney. No hydronephrosis, hydroureter or calculi seen. No perinephric stranding. Bladder: Unremarkable. Gastrointestinal Tract: The stomach is unremarkable. Normal caliber small bowel. No obstruction. Colonic diverticulosis present without diverticulitis. This is greatest at the sigmoid colon. The appendix is unremarkable. No free air or free fluid. Abdominal Wall: No hernia is demonstrated. Lymphovascular Structures: Lymph nodes: Normal. Vascular: Normal caliber aorta with moderate atherosclerotic calcifications. Pelvic Viscera: Uterus not seen. No adnexal mass. OSSEOUS STRUCTURES: Redemonstration of left sided fourth through seventh rib fractures. Reverse total right shoulder arthroplasty without evidence of failure. Severe degenerative changes of the left glenohumeral joint. No pelvic fracture. Scoliotic curvature of the spine with multilevel degenerative changes. CT/CT abdomen pelvis w con IMPRESSION: 1. Tiny residual left-sided pneumothorax with chest tube placement. Multiple left-sided rib fractures again noted with associated soft tissue gas. Possible small contusion in the lingula. 2. No acute finding in the abdomen or pelvis.
--- NOTE | ~2021-10-23 | XR_ITS ---
EXAMINATION: XR CHEST CLINICAL INFORMATION: Status post chest tube COMPARISON: CT from today TECHNIQUE: Frontal view of the chest was obtained. FINDINGS: Left-sided chest tube now in place. There is no pneumothorax visualized. Lung volumes are low. Left basilar linear markings favor atelectasis, although this could be contusion. Reverse total right shoulder arthroplasty. The known left-sided rib fractures are better seen on prior CT. The cardiomediastinal silhouette is unchanged. XR/XR chest 1V IMPRESSION: Left-sided chest tube in place. No pneumothorax seen.
[2021-10-23 23:24] VITALS: BP 124/72; BP 135/83; PULSE 100; PULSE 112; RESP 22; TEMP 37; O2SAT 92; O2SAT 97; BMI 31.1
--- NOTE | 2021-10-23 23:30 | ECG_ITS ---
Test Reason : FALL Blood Pressure : / mmHG Vent. Rate : 115 BPM Atrial Rate : 115 BPM P-R Int : 170 ms QRS Dur : 108 ms QT Int : 312 ms P-R-T Axes : 058 -68 075 degrees QTc Int : 431 ms Sinus tachycardia Left axis deviation Minimal voltage criteria for LVH, may be normal variant ( [place] product ) Abnormal ECG When compared with ECG of 24-DEC-2020 18:24, No significant change was found Referred By: Gabbie Christine Electronically Signed By:Oscar Johnson
--- NOTE | 2021-10-23 23:40 | ED.FALL ---
HPI - Fall General Chief Complaint: Fall Stated Complaint: fall Time Seen by Provider: 10/23/21 23:29 Source: patient Mode of arrival: EMS History of Present Illness HPI Narrative: 76-year-old female with history of hypertension and hyperlipidemia presents with walking up stairs and then stating she suddenly found herself on the floor and denies any preceding palpitations, narrowed vision, shortness of breath, diaphoresis and denies any head strike or loss of consciousness. Related Data Home Medications Medication Instructions Recorded Confirmed atorvastatin 20 mg tablet 20 mg PO DAILY 12/25/20 07/05/21 cholecalciferol (vitamin D3) 50 50 mcg PO DAILY 12/25/20 07/05/21 mcg (2,000 unit) capsule (Vitamin D3) spironolactone 25 mg tablet 25 mg PO DAILY 12/25/20 07/05/21 ferrous sulfate 325 mg (65 mg 325 mg PO DAILY 07/05/21 07/05/21 iron) tablet Allergies Allergy/AdvReac Type Severity Reaction Status Date / Time morphine [MORPHINE] Allergy Severe VOMITING/CO Unverified 04/22/20 15:10 NSTIPATION lisinopril Allergy Unknown cough Verified 03/04/20 00:00 Review of Systems Review of Systems: Pertinent positives and negatives as stated in HPI 10 point review of systems is otherwise negative. PMFSH Past Medical History Source: nursing notes reviewed Medical History Acute GI bleeding Asthma Cholecystectomy planned HTN (hypertension) Social History Social History Household Members: Spouse Housing: House Do you presently have visiting nurse or other home services: No Alcohol intake: current Alcohol intake frequency: 3 or more drinks per day Alcohol type: wine Advance Directives: No service: No Physical Exam Vital Signs: Vital Signs: Last Vital Signs Temp 98.6 F 10/23/21 23:24 Pulse 110 H 10/24/21 02:59 Resp 20 10/24/21 02:59 BP 155/76 H 10/24/21 02:59 Pulse Ox 96 10/24/21 02:59 Oxygen Flow Rate 2 10/23/21 23:24 BMI result Body Mass Index 31.1 VITAL SIGNS: Reviewed. GENERAL: Well developed, well nourished, in no acute distress. HEAD: Normocephalic/atraumatic EYES: PERRLA, EOMI EARS: Ext canals without abnormality NOSE: Nares patent bilateral OROPHARYNX: no oral lesions noted, posterior pharynx clear NECK: Supple, no adenopathy LUNGS: Normal breath sounds. No adventitious sounds or accessory muscle use. SpO2<97> 2 L nasal cannula CARDIOVASCULAR: Regular rate and rhythm without noted murmurs ABDOMEN: Soft, non-tender, non-distended with bowel sounds. MUSCULOSKELETAL: No tenderness, deformities, or effusions noted on gross inspection. EXTREMITIES: No cyanosis, clubbing or edema; abrasion to medial aspect of right great toe SKIN: Inspection of the skin reveals no rashes NEUROLOGIC: Alert and oriented x 4. Strength and sensation to light touch were grossly intact x 4. Course Course Course Narrative: 76-year-old female with history and clinical presentation suggestive of mechanical fall, will scan head/cervical spine/chest no evidence to suggest extremity deformity, pain. Review of all investigations significant for left rib fractures 4-7, with associated left pneumothorax. Patient tolerated chest tube placement without complications. I discussed the case with [facility] [place] [facility] who accepts transfer on incentive spirometry patient is noted to take 8 breaths at 1250. All results and findings discussed with the patient at bedside and she was transferred to [facility] [place] [facility]. Procedures Chest Tube Chest Tube 1: Chest Tube Location: left and anterior axillary line Size of Tube (cm): 14 Chest Tube Prep: Yes betadine prep and sterile drapes applied Local Anesthetic: lidocaine 1% Amount of anesthesia used (mL): 5 Incision Made With: #11 blade Post Procedure: sutured to skin and sterile dressing applied Tube Drainage: none Post Procedure CXR?: Yes Patient Tolerated Procedure: Yes MDM - Fall Lab Data Result diagrams: 10/24/21 00:44 10/24/21 00:44 Labs: Lab Results 10/24/21 10/24/21 10/24/21 Range/Units 00:44 00:44 00:44 WBC 18.0 H (4.8-10.8) X10*3/uL RBC 4.73 (4.20-5.50) X10*6/uL Hgb 14.8 (12.0-16.0) g/dl Hct 45.7 (37.0-47.0) % MCV 96.6 (80.0-98.0) fL MCH 31.3 (27.0-33.0) pg MCHC 32.4 (31.0-35.0) g/dl RDW 13.3 (11.0-16.0) % Plt Count 302 (160-400) X10*3/uL MPV 9.4 (9.4-12.3) fL Immature Gran % (Auto) 1.6 H (0.0-0.4) % Neut % (Auto) 81.8 H (45-73) % Lymph % (Auto) 9.2 L (20-40) % [place] % (Auto) 6.2 (2-11) % Eos % (Auto) 0.6 (0-4) % Baso % (Auto) 0.6 (0-2) % Lymph # (Auto) 1.7 (1.2-4.9) X10*3/uL [place] # (Auto) 1.1 (0.1-1.2) X10*3/uL Eos # (Auto) 0.1 (0.0-0.4) X10*3/uL Baso # (Auto) 0.1 (0.0-0.2) X10*3/uL Abs Immat Gran (auto) 0.28 H (0.00-0.03) X10*3/uL Absolute Neuts (auto) 14.8 H (2.0-8.3) x10*3/uL Absolute Nucleated RBC 0.000 (0.0-0.012) X10*3/uL Nucleated RBC % (auto) 0.0 (0.0-0.2) /100WBC Sodium 137 (135-145) mmol/L Potassium 4.0 (3.3-5.1) mmol/L Chloride 103 (96-108) mmol/L Carbon Dioxide 18 L (22-29) mmol/L Anion Gap 20 (12-20) BUN 18 H (9-16) mg/dL Creatinine 1.03 (0.5-1.4) mg/dL Estim Creat Clear Calc 47.2 Estimated GFR 52 Random Glucose 125 H (60-115) mg/dL Calcium 10.3 H D (8.4-10.2) mg/dL Total Bilirubin 0.8 (0.0-1.0) mg/dL AST 30 (5-31) U/L ALT 33 H (0-31) U/L Alkaline Phosphatase 108 (39-117) U/L Total Protein 7.4 (6.5-8.0) g/dL Albumin 4.4 (3.5-5.0) g/dL Ethyl Alcohol 155 mg/dL COVID-19 (AYE) (Negative) COVID-19 Clin Com 10/24/21 Range/Units 02:14 WBC (4.8-10.8) X10*3/uL RBC (4.20-5.50) X10*6/uL Hgb (12.0-16.0) g/dl Hct (37.0-47.0) % MCV (80.0-98.0) fL MCH (27.0-33.0) pg MCHC (31.0-35.0) g/dl RDW (11.0-16.0) % Plt Count (160-400) X10*3/uL MPV (9.4-12.3) fL Immature Gran % (Auto) (0.0-0.4) % Neut % (Auto) (45-73) % Lymph % (Auto) (20-40) % [place] % (Auto) (2-11) % Eos % (Auto) (0-4) % Baso % (Auto) (0-2) % Lymph # (Auto) (1.2-4.9) X10*3/uL [place] # (Auto) (0.1-1.2) X10*3/uL Eos # (Auto) (0.0-0.4) X10*3/uL Baso # (Auto) (0.0-0.2) X10*3/uL Abs Immat Gran (auto) (0.00-0.03) X10*3/uL Absolute Neuts (auto) (2.0-8.3) x10*3/uL Absolute Nucleated RBC (0.0-0.012) X10*3/uL Nucleated RBC % (auto) (0.0-0.2) /100WBC Sodium (135-145) mmol/L Potassium (3.3-5.1) mmol/L Chloride (96-108) mmol/L Carbon Dioxide (22-29) mmol/L Anion Gap (12-20) BUN (9-16) mg/dL Creatinine (0.5-1.4) mg/dL Estim Creat Clear Calc Estimated GFR Random Glucose (60-115) mg/dL Calcium (8.4-10.2) mg/dL Total Bilirubin (0.0-1.0) mg/dL AST (5-31) U/L ALT (0-31) U/L Alkaline Phosphatase (39-117) U/L Total Protein (6.5-8.0) g/dL Albumin (3.5-5.0) g/dL Ethyl Alcohol mg/dL COVID-19 (AYE) Negative (Negative) COVID-19 Clin Com See Note ECG Data Attestation: I personally reviewed and interpreted this ECG as follows: Prior ECG tracings: available for review Interpretation: Normal sinus rhythm, HR-63, no STEMI, AR/QRS/QTC are within normal limits. Critical Care Time Critical Care Time Critical Care Time: Yes Total Critical Care Time: 30 Attestation: I personally attest to this time spent taking care of the patient. Discharge Plan Discharge Clinical Impression: Trauma, Fall, Pneumothorax on left, Multiple rib fractures Patient Disposition: Xfer Acute Care Hospital Transfer Details: Trauma, multiple rib fractures, pneumothorax Prescriptions: No Action atorvastatin 20 mg Tablet 20 mg PO DAILY 0RF spironolactone 25 mg Tablet 25 mg PO DAILY 0RF cholecalciferol (vitamin D3) [Vitamin D3] 50 mcg (2,000 unit) Capsule 50 mcg PO DAILY 0RF ferrous sulfate 325 mg (65 mg iron) tablet 325 mg PO DAILY 0RF
[2021-10-24 00:50] LABS: MANUAL DIFF FLAG NO
[2021-10-24 00:52] LABS: Basophils Absolute Auto 0.1 X10*3/uL (0.0-0.2); Basophils Percent Auto 0.6 % (0-2); Eosinophils Absolute Auto 0.1 X10*3/uL (0.0-0.4); Eosinophils Percent Auto 0.6 % (0-4); Hematocrit 45.7 % (37.0-47.0); Hemoglobin 14.8 g/dl (12.0-16.0); Imm Gran Abs Auto 0.28 X10*3/uL (0.00-0.03); Imm Gran Pct Auto 1.6 % (0.0-0.4); Lymphocytes Absolute Auto 1.7 X10*3/uL (1.2-4.9); Lymphocytes Percent Auto 9.2 % (20-40); Mean Corpuscular HGB Conc 32.4 g/dl (31.0-35.0); Mean Corpuscular Hemoglobin 31.3 pg (27.0-33.0); Mean Corpuscular Volume 96.6 fL (80.0-98.0); Mean Platelet Volume 9.4 fL (9.4-12.3); Monocytes Absolute Auto 1.1 X10*3/uL (0.1-1.2); Monocytes Percent Auto 6.2 % (2-11); Neutrophils Absolute Auto 14.8 x10*3/uL (2.0-8.3); Neutrophils Percent Auto 81.8 % (45-73); Platelet Count 302 X10*3/uL (160-400); Red Blood Count 4.73 X10*6/uL (4.20-5.50); Red Cell Distribution Width 13.3 % (11.0-16.0)
[2021-10-24] MEDS: fentaNYL citrate/PF 100 MCG/2 ML VIAL 25 MCG IVPUSH (01:01)
[2021-10-24] MEDS: Ketorolac Tromethamine 30 MG/ML VIAL 15 MG IVPUSH (01:01)
[2021-10-24 01:05] LABS: Alanine Aminotransferase 33 U/L (0-31); Albumin Level 4.4 g/dL (3.5-5.0); Alkaline Phosphatase 108 U/L (39-117); Anion Gap 20 (12-20); Aspartate Amino Transferase 30 U/L (5-31); Bilirubin Total 0.8 mg/dL (0.0-1.0); Blood Urea Nitrogen 18 mg/dL (9-16); Calcium 10.3 mg/dL (8.4-10.2); Carbon Dioxide 18 mmol/L (22-29); Chloride 103 mmol/L (96-108); Creatinine Clr Calc Pharmacy 47.2; Estimated Glomerular Filt Rate 52; Glucose Random 125 mg/dL (60-115); Sodium 137 mmol/L (135-145); Total Protein 7.4 g/dL (6.5-8.0)
--- NOTE | 2021-10-24 01:05 | PC.NURSE ---
Pt medicated per OCT. at bedside discussing plan for chest tube and obtaining consent.
[2021-10-24 01:09] LABS: Ethanol 155 mg/dL
[2021-10-24 01:44] VITALS: BP 136/71; PULSE 118; RESP 24; O2SAT 98
--- NOTE | 2021-10-24 01:45 | PC.NURSE ---
Pig tail chest tube placed into left chest @ this time. Suction @ -20. Pt reporting 02/12 pain. VSS @ this time. Pt aware of plan for XRay and possible transfer to [facility].
--- NOTE | 2021-10-24 01:46 | PC.NURSE ---
XRay @ bedside to confirm placement.
[2021-10-24] MEDS: HYDROmorphone HCl 0.5 MG/0.5 ML SYRINGE 0.25 MG IVPUSH (02:02)
--- NOTE | 2021-10-24 02:14 | PC.NURSE ---
Second IV line established. Covid swab obtained.
[2021-10-24 02:17] VITALS: BP 135/70; PULSE 110; RESP 16; O2SAT 96
[2021-10-24 02:34] LABS: COVID-19 Test Negative (Negative)
[2021-10-24] MEDS: ondansetron HCL 4 MG/2 ML VIAL IVPUSH (02:56)
[2021-10-24] MEDS: iohexoL 350 MG/ML 100 ML INFUS..BTL 85 ML IV (02:56)
--- NOTE | 2021-10-24 02:57 | PC.NURSE ---
Pt returns from CT. While in CT, pt began feeling unwell, reporting nausea. Pt returned to room, medicated with Zofran and assisted into POC. Pt reports relief of nausea. RT @ bedside for incentive spirometry training. VSS.
[2021-10-24 02:59] VITALS: BP 155/76; PULSE 110; RESP 20; O2SAT 96
--- NOTE | 2021-10-24 03:16 | PC.RT ---
Incentive Spirometry - Pt completed 8 breaths at 1250 ml per breath. Good effort.
--- NOTE | 2021-10-24 03:22 | PC.NURSE ---
This RN calling [facility], RN unable to take report @ this time. RN to call back.
--- NOTE | 2021-10-24 03:46 | PC.NURSE ---
Report given to [facility] RN. Awaiting EMS for transport.
[2021-10-24 04:06] VITALS: BP 135/69; PULSE 116; RESP 24; O2SAT 98
--- NOTE | 2021-10-24 04:06 | PC.NURSE ---
EMS at bedside for transport. This RN updating on transfer details. VSS.
== END 2021-10-24 04:11 | disposition short-term general hospital (02) ==
PROVIDERS: Emergency Provider Student in an Organized Health Care Education/Training Program; PCP Internal Medicine
DX: S22.42XA Multiple fractures of ribs, left side, initial encounter for closed fracture (principal); J93.9 Pneumothorax, unspecified; R51.9 Headache, unspecified; M54.2 Cervicalgia; I10 Essential (primary) hypertension; R10.9 Unspecified abdominal pain; W10.9XXA Fall (on) (from) unspecified stairs and steps, initial encounter; Y93.9 Activity, unspecified; Y92.9 Unspecified place or not applicable; Y99.9 Unspecified external cause status; Z20.822 Contact with and (suspected) exposure to COVID-19; Z79.899 Other long term (current) drug therapy; Z20.828 Contact with and (suspected) exposure to other viral communicable diseases
CPT/HCPCS: 32554; 32555; 36415; 70450; 71045; 71250; 71260; 72125; 74177; 80053; 82077; 85025; 87635; 93005; 96374; 96376; 99285; 99291; J1170; J1885; J2405; J3010; Q9967

== ENCOUNTER 2022-03-06 10:23 | Outpatient (REF) | payer MEDICARE, SELFPAY ==
[2022-03-06 11:16] LABS: Alanine Aminotransferase 28 U/L (0-31); Albumin Level 4.4 g/dL (3.5-5.0); Alkaline Phosphatase 119 U/L (39-117); Aspartate Amino Transferase 26 U/L (5-31); Bilirubin Direct 0.4 mg/dL (0.0-0.5); Cholesterol 179 mg/dL; HDL Cholesterol 61 mg/dL; LDL Cholesterol Calculated 90 mg/dl; Total Protein 7.3 g/dL (6.5-8.0); Triglycerides 143 mg/dL
[2022-03-06 12:49] LABS: Reflex LDLD? No
== END 2022-03-06 10:24 | disposition home or self-care (01) ==
LOC: HO.LNP 10:23
PROVIDERS: Visit Provider Internal Medicine
DX: E78.00 Pure hypercholesterolemia, unspecified (principal)
CPT/HCPCS: 80061; 80076

== ENCOUNTER → 2022-07-04 13:04 | Outpatient (BNVA) | payer MEDICARE, SELFPAY | PROVIDERS: PCP Internal Medicine; Referring Provider Internal Medicine; Visit Provider Internal Medicine Cardiovascular Disease | DX: I10 Essential (primary) hypertension (principal); I44.4 Left anterior fascicular block | CPT/HCPCS: 93005; 99212 ==

== ENCOUNTER 2022-08-24 16:18 | Outpatient (REF) | payer MEDICARE, SELFPAY ==
[2022-08-24 16:33] LABS: Appearance Urine Clear; Color Urine Yellow; Glucose Urine UA Negative (Negative); Leukocyte Esterase Urine Negative (Negative); Nitrite Urine Negative (Negative); PH 6.5 (5.0-9.0); Specific Gravity - Urine <= 1.005 (1.005-1.025); UMIC TRIGGER UACC YES; Urine Blood Trace (Negative); Urine Ketones Negative (Negative); Urine Protein Negative (Neg-Trace)
[2022-08-24 16:35] LABS: Bacteria Urine None Seen (None Seen); Hyaline Casts Urine 0-2 /LPF (0-2); RBC Urine 0-2 /HPF (0-2); Squamous Epithelial Cell Urine 0-2 /HPF (0-2); WBC Urine 0-5 /HPF (0-5)
== END 2022-08-24 16:19 | disposition home or self-care (01) ==
LOC: HO.LNP 16:18
PROVIDERS: Visit Provider Internal Medicine
DX: N39.0 Urinary tract infection, site not specified (principal)
CPT/HCPCS: 81001

== ENCOUNTER 2022-09-04 10:44 | Outpatient (REF) | payer MEDICARE, SELFPAY ==
[2022-09-04 10:47] LABS: MANUAL DIFF FLAG NO
[2022-09-04 11:12] LABS: Basophils Absolute Auto 0.1 X10*3/uL (0.0-0.2); Basophils Percent Auto 1.4 % (0-2); Eosinophils Absolute Auto 0.4 X10*3/uL (0.0-0.4); Hematocrit 42.5 % (37.0-47.0); Hemoglobin 14.2 g/dl (12.0-16.0); Imm Gran Abs Auto 0.09 X10*3/uL (0.00-0.03); Lymphocytes Absolute Auto 2.6 X10*3/uL (1.2-4.9); Lymphocytes Percent Auto 30.1 % (20-40); Mean Corpuscular HGB Conc 33.4 g/dl (31.0-35.0); Mean Corpuscular Hemoglobin 31.1 pg (27.0-33.0); Monocytes Absolute Auto 0.7 X10*3/uL (0.1-1.2); Monocytes Percent Auto 7.4 % (2-11); Neutrophils Absolute Auto 4.9 x10*3/uL (2.0-8.3); Neutrophils Percent Auto 56.1 % (45-73); Platelet Count 387 X10*3/uL (160-400); Red Blood Count 4.57 X10*6/uL (4.20-5.50); White Blood Count 8.8 X10*3/uL (4.8-10.8)
[2022-09-04 11:41] LABS: Alanine Aminotransferase 23 U/L (0-31); Albumin Level 4.1 g/dL (3.5-5.0); Alkaline Phosphatase 105 U/L (39-117); Anion Gap 13 (12-20); Aspartate Amino Transferase 19 U/L (5-31); Bilirubin Total 1.5 mg/dL (0.0-1.0); Blood Urea Nitrogen 19 mg/dL (9-16); Calcium 10.4 mg/dL (8.4-10.2); Carbon Dioxide 25 mmol/L (22-29); Chloride 106 mmol/L (96-108); Cholesterol 186 mg/dL; Estimated Glomerular Filt Rate > 60; Glucose Fasting 96 mg/dL (60-99); HDL Cholesterol 63 mg/dL; LDL Cholesterol Calculated 104 mg/dl; Potassium 4.5 mmol/L (3.3-5.1); Sodium 139 mmol/L (135-145); Total Protein 6.8 g/dL (6.5-8.0); Triglycerides 95 mg/dL; Vitamin D 25-OH Total 75.9 ng/mL (>30)
== END 2022-09-04 10:45 | disposition home or self-care (01) ==
LOC: HO.LNP 10:44
PROVIDERS: Visit Provider Internal Medicine
DX: Z00.00 Encounter for general adult medical examination without abnormal findings (principal); I10 Essential (primary) hypertension; E78.00 Pure hypercholesterolemia, unspecified; E83.52 Hypercalcemia; R31.29 Other microscopic hematuria
CPT/HCPCS: 80053; 80061; 82306; 85025

== ENCOUNTER 2022-09-29 09:50 | Outpatient (REF) | payer MEDICARE, SELFPAY ==
--- NOTE | ~2022-09-29 | MM_ITS ---
EXAMINATION: MM SCREENING DIGITAL BREAST TOMOSYNTHESIS, BILATERAL CLINICAL INFORMATION: Screening. Asymptomatic. COMPARISON: Mammography: 09/23/2021, 08/12/2020, 10/21/2018, 08/28/2017 TECHNIQUE: Digital breast tomosynthesis is performed in both the craniocaudal and mediolateral oblique views along with computer-aided detection (CAD). Synthesized 2D images are generated from the tomosynthesis. FINDINGS: The breasts are almost entirely fatty (ACR BI-RADS breast composition Category a). Background stromal and fibroglandular densities are similar to prior studies. No developing density or architectural abnormality. There are no significant masses, abnormal calcifications, or other abnormalities. No significant changes. MM/MM tomosynthesis screening BI IMPRESSION: No mammographic evidence of malignancy. ASSESSMENT: BI-RADS 1: Negative RECOMMENDATION: Routine annual mammography screening. This patient's information was entered into a reminder system with a target due date for their next mammogram.
== END 2022-09-29 09:51 | disposition home or self-care (01) ==
LOC: HO.MAMMO 09:50
PROVIDERS: PCP Internal Medicine; Visit Provider Internal Medicine
DX: Z12.31 Encounter for screening mammogram for malignant neoplasm of breast (principal)
CPT/HCPCS: 77063; 77067

== ENCOUNTER 2022-10-10 11:18 | Outpatient (REF) | payer MEDICARE, SELFPAY ==
[2022-10-10 11:20] LABS: MANUAL DIFF FLAG NO
[2022-10-10 11:58] LABS: Basophils Absolute Auto 0.1 X10*3/uL (0.0-0.2); Basophils Percent Auto 1.2 % (0-2); Eosinophils Absolute Auto 0.4 X10*3/uL (0.0-0.4); Eosinophils Percent Auto 4.6 % (0-4); Hematocrit 43.7 % (37.0-47.0); Hemoglobin 14.9 g/dl (12.0-16.0); Imm Gran Abs Auto 0.05 X10*3/uL (0.00-0.03); Imm Gran Pct Auto 0.6 % (0.0-0.4); Lymphocytes Absolute Auto 2.5 X10*3/uL (1.2-4.9); Lymphocytes Percent Auto 27.8 % (20-40); Mean Corpuscular HGB Conc 34.1 g/dl (31.0-35.0); Mean Corpuscular Hemoglobin 31.6 pg (27.0-33.0); Mean Corpuscular Volume 92.8 fL (80.0-98.0); Monocytes Absolute Auto 0.7 X10*3/uL (0.1-1.2); Monocytes Percent Auto 7.9 % (2-11); Neutrophils Absolute Auto 5.2 x10*3/uL (2.0-8.3); Neutrophils Percent Auto 57.9 % (45-73); Platelet Count 353 X10*3/uL (160-400); Red Blood Count 4.71 X10*6/uL (4.20-5.50); Red Cell Distribution Width 13.2 % (11.0-16.0)
== END 2022-10-10 11:19 | disposition home or self-care (01) ==
LOC: HO.LNP 11:18
PROVIDERS: Visit Provider Internal Medicine
DX: D72.829 Elevated white blood cell count, unspecified (principal)
CPT/HCPCS: 85025

== ENCOUNTER 2023-01-02 11:27 | Outpatient (REF) | payer MEDICARE, SELFPAY ==
--- NOTE | ~2023-01-02 | XR_ITS ---
EXAMINATION: XR CHEST CLINICAL INFORMATION: Cough. COMPARISON: CT chest 10/24/2021. TECHNIQUE: 2 views of the chest were obtained. FINDINGS: There is elevated right hemidiaphragm. The lungs are hypoexpanded and clear. The heart size and pulmonary vascularity is normal. There are bilateral shoulder prosthesis. XR/XR chest 2V IMPRESSION: Hypoexpanded lungs with elevated right hemidiaphragm. No acute process seen.
== END 2023-01-02 11:28 | disposition home or self-care (01) ==
LOC: HO.XRAY 11:27
PROVIDERS: PCP Internal Medicine; Visit Provider Internal Medicine
DX: R05.9 Cough, unspecified (principal)
CPT/HCPCS: 71046

== ENCOUNTER 2023-03-13 07:59 | Outpatient (REF) | payer MEDICARE, SELFPAY ==
[2023-03-13 11:30] LABS: Alanine Aminotransferase 22 U/L (0-31); Albumin Level 3.9 g/dL (3.5-5.0); Alkaline Phosphatase 107 U/L (39-117); Aspartate Amino Transferase 25 U/L (5-31); Bilirubin Direct 0.4 mg/dL (0.0-0.5); Bilirubin Total 1.1 mg/dL (0.0-1.0); Calcium 10.3 mg/dL (8.4-10.2)
[2023-03-13 11:56] LABS: Cholesterol 202 mg/dL; HDL Cholesterol 55 mg/dL; LDL Cholesterol Calculated 123 mg/dl; Triglycerides 120 mg/dL
[2023-03-13 13:44] LABS: Reflex LDLD? No
[2023-03-21 17:54] LABS: Parathyroid Hormone Related Pr 7 pg/mL (11-20)
== END 2023-03-13 08:00 | disposition home or self-care (01) ==
LOC: HO.10HDL 07:59
PROVIDERS: Visit Provider Internal Medicine
DX: E83.52 Hypercalcemia (principal); E78.00 Pure hypercholesterolemia, unspecified
CPT/HCPCS: 36415; 80061; 80076; 82310; 83519

== ENCOUNTER 2023-04-05 13:07 | Outpatient (REF) | payer MEDICARE, SELFPAY ==
[2023-04-05 13:16] LABS: Appearance Urine Clear; Color Urine Yellow; Glucose Urine UA Negative (Negative); Leukocyte Esterase Urine Negative (Negative); Nitrite Urine Negative (Negative); Specific Gravity - Urine 1.015 (1.005-1.025); UMIC TRIGGER UACC YES; Urine Blood Moderate (2+) (Negative); Urine Ketones Negative (Negative); Urine Protein Negative (Neg-Trace)
[2023-04-05 13:21] LABS: Bacteria Urine None Seen (None Seen); Hyaline Casts Urine 0-2 /LPF (0-2); Squamous Epithelial Cell Urine 0-2 /HPF (0-2); WBC Urine 0-5 /HPF (0-5)
== END 2023-04-05 13:08 | disposition home or self-care (01) ==
LOC: HO.LNP 13:07
PROVIDERS: Visit Provider Internal Medicine
DX: N39.0 Urinary tract infection, site not specified (principal)
CPT/HCPCS: 81001

== ENCOUNTER 2023-05-01 14:46 | Outpatient (REF) | payer MEDICARE, SELFPAY ==
--- NOTE | ~2023-05-01 | XR_ITS ---
EXAMINATION: XR CHEST CLINICAL INFORMATION: Moderate and persistent asthma with acute exacerbation COMPARISON: 01/02/2023 TECHNIQUE: 2 views of the chest were obtained. FINDINGS: There is low lung volume bilaterally with elevation of right hemidiaphragm and clear lungs and unremarkable mediastinum. Patient is status post bilateral reversal shoulder arthroplasty. XR/XR chest 2V IMPRESSION: Low lung volume bilaterally
== END 2023-05-01 14:47 | disposition home or self-care (01) ==
LOC: HO.XRAY 14:46
PROVIDERS: PCP Internal Medicine; Visit Provider Internal Medicine
DX: J45.41 Moderate persistent asthma with (acute) exacerbation (principal)
CPT/HCPCS: 71046

== ENCOUNTER 2023-05-16 13:17 | Emergency (ER) | payer MEDICARE, SELFPAY ==
[2023-05-16] VITALS (7 sets, daily range): BP systolic 168–226; BP diastolic 77–173; PULSE 88–109; RESP 12–20; TEMP 36.1–37.1; O2SAT 93–100; BMI 30.1
--- NOTE | ~2023-05-16 | XR_ITS ---
EXAMINATION: XR CHEST CLINICAL INFORMATION: Cough. COMPARISON: 05/01/2023. TECHNIQUE: 2 views of the chest were obtained. FINDINGS: The cardiomediastinal silhouette is within normal limits and stable. There appears to be atelectatic change and/or scarring at the lung bases. There is no focal lung consolidation or pleural effusion. Bilateral shoulder prostheses are noted. The soft tissues are unremarkable. XR/XR chest 2V IMPRESSION: Apparent atelectatic change and/or scarring at the lung bases similar to prior. No evidence for active cardiopulmonary disease.
--- NOTE | 2023-05-16 14:06 | ECG_ITS ---
Test Reason : sob Blood Pressure : / mmHG Vent. Rate : 090 BPM Atrial Rate : 090 BPM P-R Int : 168 ms QRS Dur : 104 ms QT Int : 354 ms P-R-T Axes : 038 -54 033 degrees QTc Int : 433 ms Normal sinus rhythm Left anterior fascicular block Left ventricular hypertrophy ( R in aVL , [place] product , Romhilt-Aviles ) Abnormal ECG When compared with ECG of 24-OCT-2021 00:49, Heart rate has decreased Referred By: Generic ED Physician Electronically Signed By:ALBANIA JORDAN MD
[2023-05-16 14:47] LABS: Anion Gap 15 (12-20); Blood Urea Nitrogen 13 mg/dL (9-16); Calcium 10.4 mg/dL (8.4-10.2); Carbon Dioxide 23 mmol/L (22-29); Chloride 105 mmol/L (96-108); Creatinine Clr Calc Pharmacy 54.7; Estimated Glomerular Filt Rate > 60; Glucose Random 102 mg/dL (60-115); Potassium 3.9 mmol/L (3.3-5.1); Sodium 139 mmol/L (135-145)
[2023-05-16 14:53] LABS: B Type Natriuretic Peptide 27 pg/mL (<100)
[2023-05-16 14:56] LABS: Troponin-I High Sensitivity 6.4 ng/L (<3.5-17.0)
[2023-05-16 15:10] LABS: Influenza A PCR NEGATIVE (Negative); Influenza B PCR NEGATIVE (Negative); Resp Syncy Virus RNA Qual PCR NEGATIVE (Negative); SARS COV2 PCR INHOUSE NEGATIVE (Negative)
[2023-05-16 19:16] LABS: MANUAL DIFF FLAG NO
[2023-05-16 19:19] LABS: Basophils Absolute Auto 0.1 X10*3/uL (0.0-0.2); Basophils Percent Auto 1.1 % (0-2); Eosinophils Absolute Auto 1.7 X10*3/uL (0.0-0.4); Hematocrit 44.3 % (37.0-47.0); Hemoglobin 14.9 g/dl (12.0-16.0); Imm Gran Abs Auto 0.06 X10*3/uL (0.00-0.03); Imm Gran Pct Auto 0.5 % (0.0-0.4); Lymphocytes Absolute Auto 2.8 X10*3/uL (1.2-4.9); Lymphocytes Percent Auto 25.2 % (20-40); Mean Corpuscular HGB Conc 33.6 g/dl (31.0-35.0); Mean Corpuscular Hemoglobin 30.8 pg (27.0-33.0); Mean Corpuscular Volume 91.5 fL (80.0-98.0); Mean Platelet Volume 9.2 fL (9.4-12.3); Monocytes Absolute Auto 0.7 X10*3/uL (0.1-1.2); Monocytes Percent Auto 6.3 % (2-11); Neutrophils Absolute Auto 5.7 x10*3/uL (2.0-8.3); Neutrophils Percent Auto 51.9 % (45-73); Platelet Count 339 X10*3/uL (160-400); Red Blood Count 4.84 X10*6/uL (4.20-5.50); Red Cell Distribution Width 13.6 % (11.0-16.0)
--- NOTE | 2023-05-16 19:47 | PC.NURSE ---
pt brought back for elevated bp, provider dr. Lee made aware and is in seeing pt. pt has been off her bp medication per md bp wnl. pt has a cough, denies h/a. pt is alert and oriented.
--- NOTE | 2023-05-16 19:57 | ED.URI ---
HPI - URI/Sore Throat General Chief Complaint: Upper Respiratory Symptoms Stated Complaint: Diff Breathing Time Seen by Provider: 05/16/23 19:44 Source: patient Mode of arrival: ambulatory Limitations: no limitations History of Present Illness HPI Narrative: THIS IS A VERY PLEASENT 77 YEARS OLD OF FEMALE PRESENTED TO THE EMERGENCY DEPARTMENT WITH CHIEF COMPLAINT OF SHORTNESS OF BREATH WHICH IS BEEN ONGOING FOR WEEKS, ALSO COMPLAINING OF COUGH. BLOOD PRESSURE WAS NOTED TO BE ELEVATED IN THE TRIAGE THEREFORE SHE WAS BROUGHT TO THE TREATMENT ROOM MD elicited complaint: cough Onset (ago): week(s) (1) Consistency: constant Severity: moderate Description of mucous: clear Exacerbating factors: nothing Relieving factors: nothing Related Data Home Medications Medication Instructions Recorded Confirmed atorvastatin 20 mg tablet 20 mg PO DAILY 12/25/20 07/04/22 cholecalciferol (vitamin D3) 50 50 mcg PO DAILY 12/25/20 07/04/22 mcg (2,000 unit) capsule (Vitamin D3) spironolactone 25 mg tablet 25 mg PO DAILY 12/25/20 07/04/22 ferrous sulfate 325 mg (65 mg 325 mg PO DAILY 07/05/21 07/04/22 iron) tablet Previous Rx's Medication Instructions Recorded albuterol sulfate 90 mcg/actuation 2 puff inhalation Q6H PRN 05/16/23 aerosol inhaler bronchospasm #8.5 grams prednisone 20 mg tablet 60 mg (3 x 20 mg) PO DAILY #15 tabs 05/16/23 Allergies Allergy/AdvReac Type Severity Reaction Status Date / Time morphine [MORPHINE] Allergy Severe VOMITING/CO Verified 05/16/23 14:00 NSTIPATION lisinopril Allergy Unknown cough Verified 05/16/23 14:00 Review of Systems Constitutional: Constitutional: Reports no additional constitutional complaints ENT: Reports system reviewed and no additional complaints, except as documented Respiratory: Respiratory: Reports chest congestion and Reports cough PMFSH Past Medical History PMFSH Narrative: PATIENT HAS HISTORY OF A BLOOD PRESSURE OVER SHE IS NO TAKING ANY BLOOD PRESSURE MEDICATION THIS TIME Medical History HTN (hypertension) Acute GI bleeding Cholecystectomy planned Asthma Social History Social History Household Members: Spouse Housing: House Do you presently have visiting nurse or other home services: No Alcohol intake: current Alcohol intake frequency: 3 or more drinks per day Alcohol type: wine Smoked in Last 30 Days: No Use of substances other than those prescribed or required for medical reasons: No Advance Directives: No Advance Directives Information Provided: No service: No Physical Exam Vital Signs: Vital Signs: Last Vital Signs Temp 98.8 F 05/16/23 19:56 Pulse 109 H 05/16/23 21:55 Resp 20 05/16/23 21:55 BP 168/77 H 05/16/23 21:55 Pulse Ox 96 05/16/23 21:54 O2 Del Method Room Air 05/16/23 21:54 BMI result Body Mass Index 30.1 Const: General: no acute distress Nutritional Appearance: well nourished Orientation/consciousness: patient oriented x3 Limitations: no limitations HEENT: Head: Yes normal to inspection General nose exam: Normal external nose present Face and sinus: Yes normal facial exam Mouth: Normal oral and palatal mucosa present Throat: Yes posterior oropharynx normal Neck: Neck: Yes normal visual inspection Chest: Chest palpation & inspection: normal inspection of the chest Resp: Auscultation: rhonchi and wheezes Cardio: Jugular venous distension: no JVD Rate: regular rate Rhythm: regular rhythm GI: Inspection: Yes normal to inspection Palpation (GI): Soft to palpation Skin: General skin exam: no rashes or lesions noted, elasticity normal and turgor normal Lesions: no lesions Rashes: no rashes Trauma: no lacerations or abrasions Neuro: General: patient oriented x3 Extrem: General: Yes normal to inspection Right upper extremity: normal to inspection Course Reevaluation(s) Reevaluation #1: She is feeling better at this time blood pressure is coming down nicely, dramatically improved with the albuterol, patient does have blood pressure medication at home hydrochlorothiazide but she has not been taking, she will take now the hydrochlorothiazide daily. I will send her home on prednisone and albuterol a I will refer the patient to Dr Andrews pulmunologist Time: 21:34 Medications Administered Discontinued Medications Generic Name Dose Route Start Last Admin Trade Name Freq PRN Reason Stop Dose Admin Albuterol/Ipratropium 3 ml 05/16/23 20:21 05/16/23 20:25 Albuterol/Iprat 2.5/0.5mg 3 Ml Ampul.Neb INHALE 05/16/23 20:22 3 ml ONCE ONE Administration Amlodipine Besylate 10 mg 05/16/23 19:48 05/16/23 20:15 Amlodipine Besylate 10 Mg Tablet PO 05/16/23 19:49 10 mg ONCE ONE Administration Protocol Prednisone 60 mg 05/16/23 20:55 05/16/23 21:04 Prednisone 20 Mg Tablet PO 05/16/23 20:56 60 mg ONCE ONE Administration Medical Decision Making Medical Decision Making [facility] Narrative: Presented with cough shortness of breath and found to be wheezing improved with the albuterol was she was quite hypertensive in triage blood pressure came down nicely, she has been not taking her BP meds that she has at home Differential Diagnosis Differential Diagnoses: The differential diagnosis associated with the presentation includes Admission/Observation Asthma exacerbation/pneumonia Lab Data [facility] Lab Attestation statement: I reviewed the patient's lab results. 05/16/23 19:12 05/16/23 14:18 Labs: Lab Results 05/16/23 05/16/23 Range/Units 14:18 19:12 WBC 11.0 H (4.8-10.8) X10*3/uL RBC 4.84 (4.20-5.50) X10*6/uL Hgb 14.9 (12.0-16.0) g/dl Hct 44.3 (37.0-47.0) % MCV 91.5 (80.0-98.0) fL MCH 30.8 (27.0-33.0) pg MCHC 33.6 (31.0-35.0) g/dl RDW 13.6 (11.0-16.0) % Plt Count 339 (160-400) X10*3/uL MPV 9.2 L (9.4-12.3) fL Immature Gran % (Auto) 0.5 H (0.0-0.4) % Neut % (Auto) 51.9 (45-73) % Lymph % (Auto) 25.2 (20-40) % [place] % (Auto) 6.3 (2-11) % Eos % (Auto) 15.0 H (0-4) % Baso % (Auto) 1.1 (0-2) % Lymph # (Auto) 2.8 (1.2-4.9) X10*3/uL [place] # (Auto) 0.7 (0.1-1.2) X10*3/uL Eos # (Auto) 1.7 H (0.0-0.4) X10*3/uL Baso # (Auto) 0.1 (0.0-0.2) X10*3/uL Abs Immat Gran (auto) 0.06 H (0.00-0.03) X10*3/uL Absolute Neuts (auto) 5.7 (2.0-8.3) x10*3/uL Absolute Nucleated RBC 0.000 (0.0-0.012) X10*3/uL Nucleated RBC % (auto) 0.0 (0.0-0.2) /100WBC Sodium 139 (135-145) mmol/L Potassium 3.9 (3.3-5.1) mmol/L Chloride 105 (96-108) mmol/L Carbon Dioxide 23 (22-29) mmol/L Anion Gap 15 (12-20) BUN 13 (9-16) mg/dL Creatinine 0.86 (0.5-1.4) mg/dL Estim Creat Clear Calc 54.7 Estimated GFR > 60 Random Glucose 102 (60-115) mg/dL Calcium 10.4 H (8.4-10.2) mg/dL Troponin I High Sens 6.4 (<3.5-17.0) ng/L B-Natriuretic Peptide 27 (<100) pg/mL Influenza Type A (PCR) NEGATIVE (Negative) Influenza Type B (PCR) NEGATIVE (Negative) RSV RNA Qual (PCR) NEGATIVE (Negative) SARS-CoV-2 RNA (RT-PCR) NEGATIVE (Negative) Independent Interpretation I performed an independent interpretation of an: Plain X-Ray Interpretation: Not acute disease Radiology Impression Discussion of test interpretation with radiology: I have reviewed the radiologist's reading. Radiologist Impression: TECHNIQUE: 2 views of the chest were obtained. FINDINGS: The cardiomediastinal silhouette is within normal limits and stable. There appears to be atelectatic change and/or scarring at the lung bases. There is no focal lung consolidation or pleural effusion. Bilateral shoulder prostheses are noted. The soft tissues are unremarkable. XR/XR chest 2V IMPRESSION: Apparent atelectatic change and/or scarring at the lung bases similar to prior. No evidence for active cardiopulmonary disease. Dictated By: Martin Venegas Signed By: <Electronical Discharge Plan Discharge Clinical Impression: Asthmatic bronchitis Patient Disposition: Home, Self-Care Instructions: Wheezing (ED) Additional Instructions: Make sure you take your blood pressure medication as directed, tke the prednisone and albuterol, return to the emergency room if you are worse any concern Prescriptions: New prednisone 20 mg tablet 60 mg PO DAILY Qty: 15 0RF albuterol sulfate 90 mcg/actuation HFA aerosol inhaler 2 puff inhalation Q6H PRN (Reason: bronchospasm) Qty: 8.5 0RF No Action atorvastatin 20 mg Tablet 20 mg PO DAILY spironolactone 25 mg Tablet 25 mg PO DAILY cholecalciferol (vitamin D3) [Vitamin D3] 50 mcg (2,000 unit) Capsule 50 mcg PO DAILY ferrous sulfate 325 mg (65 mg iron) tablet 325 mg PO DAILY Referrals: Kevin Andrews MD [Physician] - 2 days Interventions: ED Discharge Assessment Last Done: 05/16/23 21:56 Discharge Date/Time: 05/16/23 21:56
--- NOTE | 2023-05-16 19:58 | MHC.EDTECH ---
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
[2023-05-16] MEDS: amLODIPine Besylate 10 MG TABLET PO (20:15)
[2023-05-16] MEDS: Albuterol/Iprat 2.5/0.5MG 3 ML AMPUL.NEB INHALE (20:25)
[2023-05-16] MEDS: predniSONE 20 MG TABLET 60 MG PO (21:04)
== END 2023-05-16 21:56 | disposition home or self-care (01) ==
PROVIDERS: Emergency Provider Emergency Medicine; PCP Internal Medicine
DX: J45.909 Unspecified asthma, uncomplicated (principal); R06.02 Shortness of breath; Z20.822 Contact with and (suspected) exposure to COVID-19; Z20.828 Contact with and (suspected) exposure to other viral communicable diseases; I10 Essential (primary) hypertension; Z79.899 Other long term (current) drug therapy
CPT/HCPCS: 0241U; 36415; 71046; 80048; 83880; 84484; 85025; 93005; 94640; 99284; 99285

== ENCOUNTER 2023-05-21 13:34 | Outpatient (REF) | payer MEDICARE, SELFPAY ==
[2023-05-21 13:47] LABS: Appearance Urine Clear; Color Urine Yellow; Glucose Urine UA Negative (Negative); Leukocyte Esterase Urine Negative (Negative); Nitrite Urine Negative (Negative); UMIC TRIGGER UACC YES; Urine Blood Small (1+) (Negative); Urine Ketones Negative (Negative); Urine Protein Negative (Neg-Trace)
[2023-05-21 14:02] LABS: Bacteria Urine None Seen (None Seen); Hyaline Casts Urine 0-2 /LPF (0-2); RBC Urine 0-2 /HPF (0-2); Squamous Epithelial Cell Urine 0-2 /HPF (0-2); WBC Urine 0-5 /HPF (0-5)
== END 2023-05-21 13:35 | disposition home or self-care (01) ==
LOC: HO.LNP 13:34
PROVIDERS: Visit Provider Internal Medicine
DX: R31.9 Hematuria, unspecified (principal)
CPT/HCPCS: 81001

== ENCOUNTER → 2023-05-30 07:53 | Outpatient (REF) | payer MEDICARE, SELFPAY ==
--- NOTE | 2023-05-30 07:56 | CA_ITS ---
Transthoracic Echocardiogram Patient (Last, First, Middle): Dasha Christianson K Gender: Female Date of : 1945 Age: 77 Procedure Date: 05/30/2023 Procedure Type: Transthoracic Echocardiogram Location: OP Height: 160.02 cm Weight: 77.11 kg BSA: 1.80 m2 Heart Rate: bpm BP: 140 / 70 mmHg Curriculum And Instruction Director: Referring MD: Darion Quinones MD Medication Manager: Darion Quinones MD Symptoms: I10 - Essential (primary) hypertension Study Quality: Technically Difficult ECG Rhythm: Sinus Conclusions: - 1. Normal LV ejection fraction of 65-70% with mild LVH with impaired relaxation filling pattern 2. Fibrocalcific aortic valve changes noted with normal cardiac valvular Doppler 3. Mildly dilated ascending aorta at 3.8 cm 4. Normal RV systolic pressure 5. No gross pericardial effusion Findings Procedure Information Contrast agent, definity, is being given per protocol without apparent complications. Left Ventricle Normal left ventricular size and systolic function. There is mildly increased left ventricular wall thickness. The visually estimated ejection fraction is between 65-70%. Spectral Doppler is indicative of an impaired relaxation filling pattern. E/E prime ratio is between 8 and 15 consistent with indeterminate filling pressures. Right Ventricle Normal right ventricular cavity size and systolic function. Atria The left atrium is likely dilated. Interatrial shunt cannot be excluded. The right atrium was not well visualized. Aortic Valve The aortic valve was not well visualized. There is mild calcification of the aortic valve. There is no aortic valve stenosis. There is no aortic valve regurgitation. Mitral Valve There is mild anterior mitral leaflet thickening. There is mild mitral annular calcification. There is trace mitral valve regurgitation. There is no mitral valve stenosis. Pulmonic Valve The pulmonic valve was not well visualized. Tricuspid Valve Likely normal tricuspid valve structure and function. There is trace tricuspid valve regurgitation. The right ventricular systolic pressure is normal. The right ventricular systolic pressure is 20 mmHg. Normal right atrial pressure. There is no evidence of pulmonary hypertension. Great Vessels The pulmonary artery was not well visualized. There is mild dilatation of the ascending aorta measuring 3.80 cm. Venous The inferior vena cava is normal in size and collapses greater than 50% with inspiration. Pericardium/Pleural There is no evidence of pericardial effusion. Prior Study Comparison Changes noted compared to prior study dated: 02/24/2020. Ascending aorta is mildly enlarged Measurements 2D Linear Measurements IVSd: 1.23 0.6-0.9/0.6-1.0 cm LVIDd: 3.65 3.9-5.3/4.2-5.9 cm LVIDd Index: 2.03 2.4-3.2/2.2-3.1 cm/m2 LVIDs: 2.46 2.0-3.6 cm LVPWd: 1.22 0.7-1.1 cm Ao Root: 3.10 2.1-3.5 cm LA Diam: 4.30 2.7-3.8/3.0-4.0 cm LAIDs Index: 2.39 1.5-2.3 cm/m2 LV Mass: 185.49 67-162/88-224 g LV Mass Index: 103.05 43-95/49-115 g/m2 LVOT Diam: 2.00 3.0+(-)1.3 cm 2D Systolic Function EF 4C: 70.00 >55% EF 2C: 76.20 >55% EF BiP: 72.30 >55% Mitral Valve MV Pk E: 0.63 MV PK A: 0.83 MV Decel Time: 145.00 E/A: 0.80 E'Lateral: 4.03 E'Medial: 5.22 E/E' Med: 12.10 E/E' Lat: 15.70 PHT: 44.00 MVA PHT: 5.00 Decel Chaves: 4.24 Aortic Valve AoV Pk [place]: 1.58 AoV Mn [place]: 0.94 AoV VTI: 0.27 AoV Pk Grad: 10.00 Aov Mn Grad: 4.00 SHARYN Cont.VTI: 1.87 LVOT LVOT Pk [place]: 0.89 LVOT Mn [place]: 0.58 LVOT VTI: 0.16 LVOT Pk Grad: 3.00 LVOT Mn Grad: 2.00 LVOT Diam: 2.00 LVOT Area: 3.14 Diastolic Function MV Pk E: 0.63 MV Pk A: 0.83 E/A: 0.80 E'Medial: 5.22 E/E' Med: 12.10 E' Laterial: 4.03 E/E' Lat: 15.70 Right Ventricle TAPSE (mm): 22.00 TVS' [place]: 9.00 Tricuspid Valve TR Pk [place]: 2.08 TR Pk Grad: 17.00 RA Press: 3.00 RVSP: 20.00 Great Vessels Aorta Ao Root-2D: 3.10 2.0-3.7 cm Ao Asc: 3.80 2.1-3.4 cm Pulmonary Valve PV Pk Everette: 0.81 Peak PV Grad: 3.00 Updated in Other Vendor System with Status of Final Darion Quinones MD electronically signed on 05/30/2023 4:47:37 PM with status of Final
== END ==
LOC: HO.CARD 07:53
PROVIDERS: PCP Internal Medicine; Visit Provider Internal Medicine Cardiovascular Disease
DX: I10 Essential (primary) hypertension (principal)
CPT/HCPCS: 93306; Q9957

== ENCOUNTER → 2023-05-30 07:56 | Outpatient (BNV) | payer MEDICARE, SELFPAY | PROVIDERS: PCP Internal Medicine; Visit Provider Internal Medicine Cardiovascular Disease | DX: I34.81 Nonrheumatic mitral (valve) annulus calcification (principal); I35.8 Other nonrheumatic aortic valve disorders | CPT/HCPCS: 93306 ==

== ENCOUNTER 2023-06-07 10:45 | Outpatient (AMB) | payer MEDICARE, SELFPAY ==
--- NOTE | 2023-06-07 10:54 | MHC.OFFVIS ---
Intake Vital Signs 06/07/23 10:55 Height 5 ft 3 in Weight 178 lb 9.191 oz BMI 31.6 BP 138/72 Blood Pressure Location Lt brachial Position Sitting Respiration 14 Pulse 118 H Pulse Source Pulse Oximeter Pulse Oximetry (%) 97 Oxygen Delivery Method Room Air Intake Visit Reasons: Asthma Allergies morphine [MORPHINE] Allergy (Severe, Verified 06/07/23 10:55) VOMITING/CONSTIPATION lisinopril Allergy (Unknown, Verified 06/07/23 10:55) cough Medication List - Last Reconciled 06/07/23 by Naz Ritter, DRYING MACHINE BACK TENDER albuterol sulfate 90 mcg/actuation 2 puffs inhalation Q6H PRN atorvastatin 20 mg PO DAILY cholecalciferol (vitamin D3) (Vitamin D3) 50 mcg PO DAILY ferrous sulfate 325 mg PO DAILY prednisone 60 mg (3 x 20 mg) PO DAILY spironolactone 25 mg PO DAILY HPI Asthma HPI Details 77-year-old lady, former approximately 20 pack-year smoker, quit 1996 with underlying what appears to be allergy related asthma with symptoms when patient used 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 Patient states that after she has retired over the last 5 years she has not been having any symptoms. She did have recent bronchitis from which he has essentially recovered. She denies any symptoms at this time. Patient denies having recent pulmonary function or allergy testing. She does have elevated eosinophils on her last CBC. Patient does have a dog. She denies seasonal allergies symptoms. [facility] Medical History HTN (hypertension) Acute GI bleeding Cholecystectomy planned Asthma Social History Household Members: Spouse Housing: House Do you presently have visiting nurse or other home services: No Alcohol intake: current Alcohol intake frequency: 3 or more drinks per day Alcohol type: wine service: No Review of Systems Const Denies daytime sleepiness, Denies excessive sweating, Denies fatigue, Denies fever(s), Denies lethargy, Denies malaise, Denies night sweats, Denies snoring and Denies weight loss Eyes Denies blurry vision and Denies itchy eyes ENT Denies nasal congestion, Denies post nasal drip, Denies sinus pain, Denies sinus pressure and Denies other ( Thrush) Card Denies chest pain, Denies pedal edema, Denies dyspnea, Denies orthopnea and Denies paroxysmal nocturnal dyspnea Resp Denies cough, Denies hemoptysis, Denies excessive phlegm production, Denies dyspnea, Denies snoring and Denies wheezing GI Denies abdominal pain and Denies heartburn Musc Denies myalgias, Denies arthralgias and Denies joint swelling Skin/Breast Denies rash Neuro Denies memory loss and Denies seizure-like activity Psych Denies abnormal sleep pattern, Denies anxiety and Denies memory loss Endo Denies excessive sweating, Denies fatigue and Denies heat intolerance Ramana/Lymph Denies easy bruising Aller/Immun Denies itchy eyes, Denies seasonal rhinorrhea and Denies wheezing Physical Exam Vital Signs: Last Vital Signs Pulse 118 H 06/07/23 10:55 Resp 14 06/07/23 10:55 BP 138/72 06/07/23 10:55 Pulse Ox 97 06/07/23 10:55 Oxygen Delivery Method Room Air 06/07/23 10:55 BMI result Body Mass Index 31.6 Const General: no acute distress and alert Nutritional Appearance: not obese Orientation/consciousness: Other orientation findings ( oriented) HEENT Head: Yes atraumatic Eyes General: appearance normal, both eyes and all related structures Sclerae: sclerae normal EOM: EOMs intact bilaterally Neck Neck: Yes supple Lymphatic: no lymphadenopathy noted Resp Effort & Inspection: normal respiratory effort and no use of accessory muscles Auscultation: clear to auscultation bilaterally Cardio Rate: regular rate Rhythm: regular rhythm Heart sounds: no gallops, no murmurs and no rubs Skin General skin exam: other ( warm) Extrem General: No clubbing, No cyanosis and No edema Assessment & Plan Assessment & Plan (1) Allergic asthma: Code(s): J45.909 - Unspecified asthma, uncomplicated Plan: Likely underlying allergic asthma. However, patient recently asymptomatic and rarely uses her albuterol MDI. At this time patient wants to postpone further respiratory or allergy testing unless she develops symptoms. Coding Level of Care Code New Pt Level 3 (47841) Diagnoses Allergic asthma J45.909
[2023-06-07 10:55] VITALS: BP 138/72; PULSE 118; RESP 14; O2SAT 97; BMI 31.6
== END 2023-06-07 11:34 | disposition home or self-care (01) ==
PROVIDERS: PCP Internal Medicine; Referring Provider Internal Medicine; Visit Provider Internal Medicine Pulmonary Disease
DX: J45.909 Unspecified asthma, uncomplicated (principal)
CPT/HCPCS: 99203

== ENCOUNTER → 2023-06-07 10:45 | Outpatient (BNVA) | payer MEDICARE, SELFPAY | PROVIDERS: PCP Internal Medicine; Referring Provider Internal Medicine; Visit Provider Internal Medicine Pulmonary Disease | DX: J45.909 Unspecified asthma, uncomplicated (principal) | CPT/HCPCS: 99202 ==

== ENCOUNTER 2023-08-31 11:17 | Outpatient (AMB) | payer MEDICARE, SELFPAY ==
[2023-08-31 11:19] VITALS: BP 130/80; PULSE 98; BMI 30.8
--- NOTE | 2023-08-31 11:19 | MHC.OFFVIS ---
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 She has had no cardiac symptoms. Taking all her medications. Blood pressures been generally well controlled. She remains active and denies any exertional chest pain or shortness of breath. No lightheadedness, syncope. No prolonged palpitations. No heart failure symptoms. [facility] Medical History HTN (hypertension) Acute GI bleeding Cholecystectomy planned Asthma Social History Household Members: Spouse Housing: House Do you presently have visiting nurse or other home services: No Alcohol intake: current Alcohol intake frequency: 3 or more drinks per day Alcohol type: wine service: No Review of Systems Const Denies chills, Denies fatigue, Denies fever(s), Denies frequent falls, Denies weakness, Denies weight gain and Denies weight loss ENT Denies dizziness Card Denies chest pain, Denies leg edema, Denies lightheadedness, Denies palpitations, Denies dyspnea, Denies dyspnea on exertion, Denies orthopnea and Denies other (loss of consciousness) Resp Denies cough, Denies dyspnea and Denies dyspnea on exertion GI Denies hematochezia and Denies change in stool character Musc Denies abnormal gait, Denies muscle weakness, Denies numbness, Denies radiating pain into limb and Denies tingling Neuro Denies abnormal gait, Denies dizziness, Denies frequent falls, Denies numbness, Denies tingling and Denies weakness Endo Denies fatigue and Denies palpitations Physical Exam Vital Signs: Last Vital Signs Pulse 98 08/31/23 11:19 BP 130/80 08/31/23 11:19 BMI result Body Mass Index 30.8 Const General: cooperative, comfortable, no acute distress, alert, awake and well groomed Nutritional Appearance: overweight Orientation/consciousness: patient oriented x3 Limitations: no limitations Neck Neck: Yes trachea midline, Yes supple and Yes no JVD Resp Effort & Inspection: normal respiratory effort Auscultation: clear to auscultation bilaterally Cardio Jugular venous distension: no JVD Palpation: normal PMI Rate: regular rate Rhythm: regular rhythm Heart sounds: S1 normal heart sound present, S2 normal heart sound present, no click, no gallops and no murmurs GI Auscultation: normal bowel sounds Skin General skin exam: no rashes or lesions noted Neuro General: patient oriented x3 and no focal motor deficits Extrem General: Yes no clubbing, cyanosis or edema Office Procedures EKG Details: EKG shows normal sinus rhythm with PAC with left anterior fascicular block and suggestion of left ventricular hypertrophy with repolarization abnormality [id number], Complete Assessment & Plan Assessment & Plan (1) HTN (hypertension): Code(s): I10 - Essential (primary) hypertension Plan: Hypertension with suggestion of left ventricular hypertrophy on EKG mild hypertensive heart disease with mild LVH and normal LV systolic function with mildly dilated ascending aorta. Overall she is done well with good blood pressure control. Currently she has no symptoms related to cardiovascular system. No further workup is indicated. Continue aggressive control blood pressure. Continue heart healthy lifestyle. Advised to call me with any new symptoms. Will follow up in the clinic in 1 year's time, sooner p.r.n.. Thank you for allowing me to partake in her care Coding Level of Care Code Est Pt Level 3 (32040) Diagnoses HTN (hypertension) I10 CPT Codes EKG - CPT: 08231-[id number], Complete ([id number])
== END 2023-08-31 11:55 | disposition home or self-care (01) ==
PROVIDERS: PCP Internal Medicine; Visit Provider Internal Medicine Cardiovascular Disease
DX: I10 Essential (primary) hypertension (principal)
CPT/HCPCS: 93010; 99213

== ENCOUNTER → 2023-08-31 11:17 | Outpatient (BNVA) | payer MEDICARE, SELFPAY | PROVIDERS: PCP Internal Medicine; Visit Provider Internal Medicine Cardiovascular Disease | DX: I10 Essential (primary) hypertension (principal); Z79.899 Other long term (current) drug therapy | CPT/HCPCS: 93005; 99212 ==

== ENCOUNTER 2023-09-04 11:00 | Outpatient (REF) | payer MEDICARE, SELFPAY ==
[2023-09-04 11:04] LABS: MANUAL DIFF FLAG NO
[2023-09-04 11:36] LABS: Basophils Absolute Auto 0.1 X10*3/uL (0.0-0.2); Basophils Percent Auto 1.6 % (0-2); Eosinophils Absolute Auto 0.6 X10*3/uL (0.0-0.4); Hematocrit 44.5 % (37.0-47.0); Hemoglobin 15.1 g/dl (12.0-16.0); Imm Gran Abs Auto 0.03 X10*3/uL (0.00-0.03); Imm Gran Pct Auto 0.4 % (0.0-0.4); Lymphocytes Absolute Auto 2.1 X10*3/uL (1.2-4.9); Lymphocytes Percent Auto 28.2 % (20-40); Mean Corpuscular HGB Conc 33.9 g/dl (31.0-35.0); Mean Corpuscular Hemoglobin 31.5 pg (27.0-33.0); Mean Corpuscular Volume 92.7 fL (80.0-98.0); Monocytes Absolute Auto 0.7 X10*3/uL (0.1-1.2); Monocytes Percent Auto 9.1 % (2-11); Neutrophils Absolute Auto 3.9 x10*3/uL (2.0-8.3); Neutrophils Percent Auto 52.7 % (45-73); Platelet Count 297 X10*3/uL (160-400); Red Cell Distribution Width 13.2 % (11.0-16.0); White Blood Count 7.5 X10*3/uL (4.8-10.8)
[2023-09-04 12:04] LABS: Alanine Aminotransferase 38 U/L (0-31); Alkaline Phosphatase 86 U/L (39-117); Anion Gap 14 (12-20); Aspartate Amino Transferase 36 U/L (5-31); Blood Urea Nitrogen 13 mg/dL (9-16); Calcium 10.7 mg/dL (8.4-10.2); Carbon Dioxide 24 mmol/L (22-29); Chloride 105 mmol/L (96-108); Cholesterol 225 mg/dL (<200); Estimated Glomerular Filt Rate 59; Glucose Fasting 101 mg/dL (60-99); HDL Cholesterol 61 mg/dL (>40); LDL Cholesterol Calculated 135 mg/dL (<100); Potassium 4.5 mmol/L (3.3-5.1); Sodium 138 mmol/L (135-145); Total Protein 7.2 g/dL (6.5-8.0); Triglycerides 148 mg/dL (<150)
[2023-09-04 12:11] LABS: Vitamin D 25-OH Total 62.1 ng/mL (>30)
== END 2023-09-04 11:01 | disposition home or self-care (01) ==
LOC: HO.LNP 11:00
PROVIDERS: Visit Provider Internal Medicine
DX: Z00.00 Encounter for general adult medical examination without abnormal findings (principal); I10 Essential (primary) hypertension; E55.9 Vitamin D deficiency, unspecified; E78.00 Pure hypercholesterolemia, unspecified
CPT/HCPCS: 80053; 80061; 82306; 85025

== ENCOUNTER 2023-09-11 15:22 | Outpatient (REF) | payer MEDICARE, SELFPAY ==
[2023-09-11 15:43] LABS: Appearance Urine Clear; Color Urine Yellow; Glucose Urine UA Negative (Negative); Leukocyte Esterase Urine Negative (Negative); Nitrite Urine Negative (Negative); UMIC TRIGGER UACC YES; Urine Blood Small (1+) (Negative); Urine Ketones Trace mg/dL (Negative); Urine Protein Negative (Neg-Trace)
[2023-09-11 15:46] LABS: Bacteria Urine None Seen (None Seen); Hyaline Casts Urine 0-2 /LPF (0-2); Squamous Epithelial Cell Urine 0-2 /HPF (0-2); WBC Urine 0-5 /HPF (0-5)
== END 2023-09-11 15:23 | disposition home or self-care (01) ==
LOC: HO.LNP 15:22
PROVIDERS: Visit Provider Internal Medicine
DX: R31.29 Other microscopic hematuria (principal); I10 Essential (primary) hypertension
CPT/HCPCS: 81001

== ENCOUNTER 2023-10-09 11:34 | Outpatient (REF) | payer MEDICARE, SELFPAY ==
[2023-10-09 12:06] LABS: Calcium 10.4 mg/dL (8.4-10.2)
== END 2023-10-09 11:35 | disposition home or self-care (01) ==
LOC: HO.LNP 11:34
PROVIDERS: Visit Provider Internal Medicine
DX: E83.52 Hypercalcemia (principal)
CPT/HCPCS: 82310

== ENCOUNTER 2023-10-09 12:49 | Outpatient (REF) | payer MEDICARE, SELFPAY ==
--- NOTE | ~2023-10-09 | MM_ITS ---
EXAMINATION: BONE DENSITOMETRY CLINICAL INDICATION: Menopause. COMPARISON: Previous BD dated 08/24/2020 and baseline BD dated 06/24/2008. TECHNIQUE: Using a [employer] DXA System (software version: 13.1) manufactured by [employer], dual-energy x-ray absorptiometry was performed of the lumbar spine and left hip. The images are of good technical quality. Summary results are attached. FINDINGS: LEFT FEMUR, NECK: Current: BMD 0.792 g/cm2, Z-score 0.0, T-score -1.8, osteopenia. Prior: BMD 0.919 g/cm2. Baseline: BMD 0.939 g/cm2. LEFT FEMUR, TOTAL: Current: BMD 0.897 g/cm2, Z-score 0.7, T-score -0.9, normal, 10.5% decrease from previous, 14.5% decrease from baseline (<5% change is not significant). Prior: BMD 1.002 g/cm2. Baseline: BMD 1.049 g/cm2. AP SPINE L3-L4 (excluding L1 and L2): The data of L1-L4 has been changed to exclude the L1 and L2 vertebral bodies, because scoliosis with degenerative sclerosis at these levels may cause overestimation of lumbar spine density. Current: BMD 1.345 g/cm2, Z-score 2.5, T-score 1.2, normal, 7.6% decrease from previous, 2.7% decrease from baseline (<5% change is not significant). Prior: BMD 1.456 g/cm2. Baseline: BMD 1.383 g/cm2. IDENTIFIED RISK FACTORS: Early menopause, hysterectomy, secondary osteoporosis. HISTORY OF FRACTURE: None listed. MEDICATIONS: None listed. MM/XR DEXA axial skeleton IMPRESSION: 1. DIAGNOSIS: Osteopenia based on the lowest T-score value of -1.8 in the femoral neck applying World Health Organization criteria. 2. 10-YEAR FRACTURE RISK PREDICTION, FRAX: Major osteoporotic fracture (clinical spine, forearm, hip or shoulder) 12.9%. Hip fracture 3.1%. 3. Treatment Recommendations: NOF guidelines recommend consideration for treatment in postmenopausal women and men age 50 and older presenting with the following: -A hip or vertebral (clinical or morphometric) fracture. -T-score less than or equal to -2.5 at the femoral neck or spine after appropriate evaluation to exclude secondary causes. -Low bone mass at the hip or spine and a 10-year fracture probability by FRAX of greater than or equal to 3% for hip fracture or greater than or equal to 20% for major osteoporotic fracture based on the [place] adapted WHO algorithm. 4. Other Recommendations: All treatment decisions require clinical judgment and consideration of individual patient factors, including patient preferences, comorbidities, previous drug use, risk factors not captured in the FRAX model (e.g. frailty, falls, vitamin D deficiency, increased bone turnover, interval significant decline in bone density) and possible under or overestimation of fracture risk by FRAX. Additional medical evaluation for secondary cause of low bone mineral density may be appropriate. FUTURE SCAN RECOMMENDATION: People with diagnosed cases of osteoporosis or at high risk for fracture should have regular bone mineral density tests. For patients eligible for Medicare, routine testing is allowed once every 2 years. The testing frequency can be increased to one year for patients who have rapidly progressing disease, those who are receiving or discontinuing medical therapy to restore bone mass, or have additional risk factors.
--- NOTE | ~2023-10-09 | MM_ITS ---
EXAMINATION: MM SCREENING DIGITAL BREAST TOMOSYNTHESIS, BILATERAL CLINICAL INFORMATION: Screening. Asymptomatic. Remote history of breast reduction surgery. COMPARISON: Mammography: 09/29/2022, 09/23/2021, 08/12/2020, 10/21/2018, 08/28/2017 TECHNIQUE: Digital breast tomosynthesis is performed in both the craniocaudal and mediolateral oblique views along with computer-aided detection (CAD). Synthesized 2D images are generated from the tomosynthesis. FINDINGS: The breasts are almost entirely fatty (ACR BI-RADS breast composition Category a). There are a few scattered bilateral dermal and secretory calcifications, benign. There are no suspicious masses, suspicious grouped calcifications, or areas of architectural distortion in either breast. The parenchymal pattern is stable from prior exams. No skin or axillary abnormalities. MM/MM tomosynthesis screening BI IMPRESSION: No mammographic evidence of malignancy. ASSESSMENT: BI-RADS BI-RADS 2 - Benign Findings RECOMMENDATION: Routine annual mammography screening. 1 year F/U This examination should not preclude the clinical evaluation of a suspicious palpable abnormality. This patient's information was entered into a reminder system with a target due date for their next mammogram.
== END 2023-10-09 12:50 | disposition home or self-care (01) ==
LOC: HO.MAMMO 12:49
PROVIDERS: PCP Internal Medicine; Visit Provider Obstetrics & Gynecology
DX: Z12.31 Encounter for screening mammogram for malignant neoplasm of breast (principal); Z13.820 Encounter for screening for osteoporosis; Z78.0 Asymptomatic menopausal state
CPT/HCPCS: 77063; 77067; 77080

== ENCOUNTER → 2023-10-09 13:15 | Outpatient (BNV) | payer MEDICARE, SELFPAY | PROVIDERS: PCP Internal Medicine; Visit Provider Radiology Diagnostic Radiology | DX: Z12.31 Encounter for screening mammogram for malignant neoplasm of breast (principal) | CPT/HCPCS: 77063; 77067 ==

== ENCOUNTER 2024-03-04 12:04 | Outpatient (REF) | payer MEDICARE, SELFPAY ==
[2024-03-04 12:46] LABS: Alanine Aminotransferase 83 U/L (0-31); Alkaline Phosphatase 98 U/L (39-117); Aspartate Amino Transferase 91 U/L (5-31); Bilirubin Direct 0.2 mg/dL (0.0-0.5); Bilirubin Total 0.8 mg/dL (0.0-1.0); Cholesterol 232 mg/dL (<200); HDL Cholesterol 66 mg/dL (>40); LDL Cholesterol Calculated 135 mg/dL (<100); Total Protein 7.5 g/dL (6.5-8.0); Triglycerides 156 mg/dL (<150)
[2024-03-04 13:31] LABS: Reflex LDLD? No
== END 2024-03-04 12:05 | disposition home or self-care (01) ==
LOC: HO.LNP 12:04
PROVIDERS: Visit Provider Internal Medicine
DX: E78.00 Pure hypercholesterolemia, unspecified (principal)
CPT/HCPCS: 80061; 80076

== ENCOUNTER 2024-04-14 11:02 | Outpatient (REF) | payer MEDICARE, SELFPAY ==
[2024-04-14 12:12] LABS: Alanine Aminotransferase 31 U/L (0-31); Albumin Level 4.1 g/dL (3.5-5.0); Alkaline Phosphatase 94 U/L (39-117); Aspartate Amino Transferase 28 U/L (5-31); Bilirubin Direct 0.3 mg/dL (0.0-0.5); Bilirubin Total 1.2 mg/dL (0.0-1.0); Total Protein 7.4 g/dL (6.5-8.0)
== END 2024-04-14 11:03 | disposition home or self-care (01) ==
LOC: HO.LNP 11:02
PROVIDERS: Visit Provider Internal Medicine
DX: R79.89 Other specified abnormal findings of blood chemistry (principal)
CPT/HCPCS: 80076

== ENCOUNTER 2024-08-25 12:23 | Outpatient (AMB) | payer MEDICARE, SELFPAY ==
--- NOTE | 2024-08-25 12:33 | MHC.OFFVIS ---
Vital Signs 08/25/24 12:34 Height 5 ft 3 in Weight 169 lb 12.095 oz BMI 30.1 BP 122/80 Blood Pressure Location Lt brachial Position Sitting Pulse 81 Intake Visit Reasons: 1 year fu Intake Note: 1 year follow-up with ekg feeling good Veterinary Virus Serum Inspector Required: No Allergies morphine [MORPHINE] Allergy (Severe, Verified 06/07/23 10:55) VOMITING/CONSTIPATION lisinopril Allergy (Unknown, Verified 06/07/23 10:55) cough Medication List - Last Reconciled 08/25/24 by Darion Quinones MD albuterol sulfate 90 mcg/actuation 2 puffs inhalation Q6H PRN cholecalciferol (vitamin D3) (Vitamin D3) 50 mcg PO DAILY ferrous sulfate 325 mg PO DAILY spironolactone 25 mg PO DAILY HPI Comments Details: Dasha comes for follow-up. She has been doing well over the last year. She remains active and functional. Denies any exertional chest pain or shortness of breath. Overall she says a blood pressure has remained stable. Denies any orthopnea, PND, leg edema. Denies any prolonged palpitation irregular heartbeat. No lightheadedness, syncope. Takes all medications. [facility] Medical History HTN (hypertension) Acute GI bleeding Cholecystectomy planned Asthma Social History Household Members: Spouse Housing: House Do you presently have visiting nurse or other home services: No Alcohol intake: current Alcohol intake frequency: 3 or more drinks per day Alcohol type: wine service: No Review of Systems Const Denies chills, Denies fatigue, Denies fever(s), Denies frequent falls, Denies weakness, Denies weight gain and Denies weight loss ENT Denies dizziness Card Denies chest pain, Denies leg edema, Denies lightheadedness, Denies palpitations, Denies dyspnea, Denies dyspnea on exertion, Denies orthopnea and Denies other (loss of consciousness) Resp Denies cough, Denies dyspnea and Denies dyspnea on exertion GI Denies hematochezia and Denies change in stool character Musc Denies abnormal gait, Denies muscle weakness, Denies numbness, Denies radiating pain into limb and Denies tingling Neuro Denies abnormal gait, Denies dizziness, Denies frequent falls, Denies numbness, Denies tingling and Denies weakness Endo Denies fatigue and Denies palpitations Physical Exam Vital Signs: Last Vital Signs Pulse 81 08/25/24 12:34 BP 122/80 08/25/24 12:34 BMI result Body Mass Index 30.1 Const General: cooperative, comfortable, no acute distress, alert, awake and well groomed Nutritional Appearance: overweight Orientation/consciousness: patient oriented x3 Limitations: no limitations Neck Neck: Yes trachea midline, Yes supple and Yes no JVD Resp Effort & Inspection: normal respiratory effort Auscultation: clear to auscultation bilaterally Cardio Jugular venous distension: no JVD Palpation: normal PMI Rate: regular rate Rhythm: regular rhythm Heart sounds: S1 normal heart sound present, S2 normal heart sound present, no click, no gallops and Murmur heart sound present systolic early GI Auscultation: normal bowel sounds Skin General skin exam: no rashes or lesions noted Neuro General: patient oriented x3 and no focal motor deficits Extrem General: Yes no clubbing, cyanosis or edema Assessment & Plan Assessment & Plan (1) HTN (hypertension): Code(s): I10 - Essential (primary) hypertension Category: Medical Plan: Hypertension with hypertensive heart disease is very well optimized blood pressure on current medications. She was doing well with the same. Continue spironolactone therapy. Semi annual renal function test should be pursued. Continue low-salt diet. She is encouraged to increase activity level and participate in regular physical activity. She understands agrees. She advised to call me with any new symptoms. (2) Ascending aorta enlargement: Code(s): I77.89 - Other specified disorders of arteries and arterioles Category: Medical Plan: Mildly dilated ascending aorta which has remained stable. Follow-up echocardiogram next year. Can not be on aspirin therapy due to her significant anemia and bleeding risk. Continue aggressive blood pressure control. Follow up in the clinic in 1 year's time, sooner p.r.n.. Thank you for allowing me to partake in her care Coding Level of Care Code Est Pt Level 4 (94439) Complex EM visit Add On G2211 Diagnoses HTN (hypertension) I10 Ascending aorta enlargement I77.89
[2024-08-25 12:34] VITALS: BP 122/80; PULSE 81; BMI 30.1
== END 2024-08-25 12:54 | disposition home or self-care (01) ==
PROVIDERS: PCP Internal Medicine; Visit Provider Internal Medicine Cardiovascular Disease
DX: I10 Essential (primary) hypertension (principal); I77.89 Other specified disorders of arteries and arterioles
CPT/HCPCS: 93010; 99214; G2211

== ENCOUNTER → 2024-08-25 12:23 | Outpatient (BNVA) | payer MEDICARE, SELFPAY | PROVIDERS: PCP Internal Medicine; Visit Provider Internal Medicine Cardiovascular Disease | DX: I77.89 Other specified disorders of arteries and arterioles (principal); I10 Essential (primary) hypertension; R94.31 Abnormal electrocardiogram [ECG] [EKG]; I44.4 Left anterior fascicular block | CPT/HCPCS: 93005; 99212 ==

== ENCOUNTER 2024-09-02 10:43 | Outpatient (REF) | payer MEDICARE, SELFPAY ==
[2024-09-02 10:49] LABS: MANUAL DIFF FLAG NO
[2024-09-02 11:05] LABS: Basophils Absolute Auto 0.1 X10*3/uL (0.0-0.2); Basophils Percent Auto 1.2 % (0-2); Eosinophils Absolute Auto 0.5 X10*3/uL (0.0-0.4); Hematocrit 42.3 % (37.0-47.0); Hemoglobin 14.5 g/dl (12.0-16.0); Imm Gran Abs Auto 0.04 X10*3/uL (0.00-0.03); Imm Gran Pct Auto 0.5 % (0.0-0.4); Lymphocytes Absolute Auto 2.2 X10*3/uL (1.2-4.9); Lymphocytes Percent Auto 28.9 % (20-40); Mean Corpuscular HGB Conc 34.3 g/dl (31.0-35.0); Mean Corpuscular Hemoglobin 31.6 pg (27.0-33.0); Mean Corpuscular Volume 92.2 fL (80.0-98.0); Monocytes Absolute Auto 0.7 X10*3/uL (0.1-1.2); Monocytes Percent Auto 8.8 % (2-11); Neutrophils Absolute Auto 4.2 x10*3/uL (2.0-8.3); Neutrophils Percent Auto 53.6 % (45-73); Platelet Count 321 X10*3/uL (160-400); Red Blood Count 4.59 X10*6/uL (4.20-5.50); Red Cell Distribution Width 12.6 % (11.0-16.0); White Blood Count 7.7 X10*3/uL (4.8-10.8)
[2024-09-02 11:33] LABS: Alanine Aminotransferase 32 U/L (0-31); Albumin Level 4.1 g/dL (3.5-5.0); Alkaline Phosphatase 96 U/L (39-117); Anion Gap 10 (12-20); Aspartate Amino Transferase 35 U/L (5-31); Bilirubin Total 1.2 mg/dL (0.0-1.0); Blood Urea Nitrogen 18 mg/dL (9-16); Calcium 10.3 mg/dL (8.4-10.2); Carbon Dioxide 25 mmol/L (22-29); Chloride 104 mmol/L (96-108); Cholesterol 225 mg/dL (<200); Estimated Glomerular Filt Rate > 60; Glucose Fasting 100 mg/dL (60-99); HDL Cholesterol 63 mg/dL (>40); LDL Cholesterol Calculated 132 mg/dL (<100); Potassium 3.9 mmol/L (3.3-5.1); Sodium 135 mmol/L (135-145); Total Protein 7.5 g/dL (6.5-8.0); Triglycerides 154 mg/dL (<150)
[2024-09-02 11:49] LABS: Vitamin D 25-OH Total 70.7 ng/mL (>30)
--- OUTSIDE RECORDS SUMMARY | 2024-09-02 11:50 | XMS_ITS ---
Author Organization John Garrett MD Address [address] [place] [address] [phone] Support Name Relationship Address Phone John Garrett Caregiver [address] [place] [address] [phone] Martin Canales Caregiver [address] [facility] [address] [place] [address] [phone] RICO DELGADILLONY Caregiver [address] [facility] [address] [place] [address] [phone] Darion Quinones Caregiver [address] [place] [address] [phone] Leslie Choudhury Caregiver [address] [facility] [address] [place] [address] [phone] Juventino Jerome Caregiver [address] [facility] [address] [place] [address] [phone] ANG GHULAM Caregiver [address] [facility] [address] [place] [address] [phone] BRYANT GARCIA Caregiver [address] [facility] [address] [place] [address] [phone] Ivy Santiago Caregiver [address] [facility] [address] [place] [address] [phone] JENNIFER CHRISTIANSON Emergency Contact Unknown Dasha Christianson Guarantor Unknown [phone] Care Team Providers Care Business Development Name Role Phone John Garrett Primary Care Provider [phone] Results Component Value Reference Range Notes Liver Panel Reviewed date:04/14/2024 04:03:43 PM Interpretation: Performing Lab:[facility], [address] [place] [id number] Notes/Report: Bilirubin Total 1.2 0.0-1.0 mg/dL Bilirubin Direct 0.3 0.0-0.5 mg/dL Aspartate Amino Transferase 28 5-31 U/L Alanine Aminotransferase 31 0-31 U/L Total Protein 7.4 6.5-8.0 g/dL Albumin Level 4.1 3.5-5.0 g/dL Alkaline Phosphatase 94 39-117 U/L REASON FOR VISIT Liver Panel Immunizations Vaccine Route Administration Date Status Comme nts Fluarix Quadrivalent - 150 IM Intramuscular 04/14/2024 Adm inistered Encounters Encounter Location Date Provider Diagnosis John Garrett MD [address] [place], [place] [phone] 04/14/2024 John Garrett Elevated LFTs R79.89 and Encounter for immunization Z23 Assessments Encounter Date Diagnosis (ICD Code) Assessment Notes Treatment Notes Treatment Clinical Notes Section Notes 04/14/2024 Elevated LFTs (ICD-10 - R79.89) 04/14/2024 Encounter for immunization (ICD-10 - Z23) Plan Of Treatment Next Appt Details Provider Name:John Rogers ier, 09/12/2024 02:30:00 PM, [address], [address], [place], [place], [phone], Progress Notes * DARLYNRINDasha KDOB: [birth year] (79 yo F)Acc No.[id number]:04/14/2024 Progress Note Patient:?Dasha CHRISTIANSON Provider:?John Garrett MD :1945???Age:78 Y???Sex:Female D ate:04/14/2024 Address:[address] [place] [address], [id number] Subjective: * Chief Complaints: * ???1. Liver Panel. * Medical History:? Objective: * Vitals:? Assessment: * Assessment: 1.?Encounter for immunizatio n - Z23 (Primary)???2.?Elevated LFTs - R79.89??? Plan: * Treatment: * Immunizations:? Fluarix Quadrivalent - 150 : 0.5 mL (Dose No:1) (Route: Intramuscular) given by Tabatha Werner , Office Staff on Left Deltoid * Procedure Codes:?93058 FLU V AC NO PRSV 4 ROSMERY 3 YRS+, G0008 ADMN FLU VAC NO FEE SCHED SAME DAY, 39313 VENIPUNCT, ROUTINE* * Preventive Medicine:? ??Immunizations:?Influenza?Have you had a flu shot since the most recent April 06??Yes.? * * The named appointment provid er may or may not be the originator of this progress note, and it is not deemed complete until electronically signed by the appointment provider. Sign off status: Pending * Provider:?Jhon Garrtet MD Date:?0 04/14/2024 Generated for Louise tidwell/Rosi/Yadiraitting on:?09/02/2024 11:50 AM EST
--- OUTSIDE RECORDS SUMMARY | 2024-09-02 11:50 | XMS_ITS | Data Portability ---
Author Organization [place] - [facility], Allergy Address [address] [address] Assessment Encounter Date Assessment Date Assessment LastModified by Organization Details LastModified Time 05/21/2024 05/21/2024 New ear impressions were taken and sent to [facility] for remake. [email or web address] Not available 05/21/2024 09:44:36 06/09/2024 06/09/2024 Earmolds were fitted without difficulty. Patient reported issues tolerating the increased gain, notably an echo for her own voice. She still reported these issues after decreasing overall gain by 7 clicks. Recommend that she try to adjust to settings and consider increasing/dec reasing gain after several days of acclimatizatio mercedes [email or web address] Not available 06/09/2024 10:26:45 07/02/2024 07/02/2024 Both earmolds were ground down in the office. They did not appear to be very snug to begin with but the patient states that they will cause discomfort after hours of use. Admittedly, I did not grind down much of the aperture of the mold, so this was heavily focused on today. Suggested remake with new impressions if problems persist; we would want to send mold in with new impressions. Hearing devices were found to be generally free of debris. A listening test revealed that the devices were found to be in working order. The microphones were functioning without any noise or artifact. The sound bores were not occluded at this time. Recommend following up as needed regarding today's complaint or following up with them at their next annual hearing aid fitting. Not available 07/02/2024 09:42:43 07/10/2024 07/10/2024 Ear impressions were taken without complication. Follow-up for fitting of earmolds. [email or web address] Not available 07/10/2024 15:21:57 07/31/2024 07/31/2024 Earmolds were fitted without difficulty. Follow-up if any problems arise. [email or web address] Not available 07/31/2024 07:51:45 Plan of Treatment Reminders Order Date Submit Date Provider Last Modified By Organization Details Last Modified Time Details Appointments None record ed. Lab None record ed. Referral None record ed. Procedures None record ed. Surgeries None record ed. Imaging None record ed. Medication Orders None record ed. Patient TargetsNo targets recorded. Patient InstructionsNo instructions recorded. Reason for Referral None Reported. Problems Name Problem SNOMED Code Status Onset Date Resolution Date Notes Provider Name and Address Organization Details Recorded Time Sensorine ural hearing loss of bilateral ears 644049356 Active 2015 Sensorineu ral hearing loss, bilateral; Note: Date Diagnosed: 03/22/2016 12:36 PM (H90.3) Not Available [facility] 4 03:33:02 Problem Notes None recorded. Procedures Surgical History Date Name Laterality Status Provider Name and Address Organization Details Recorded Time 4 Air only Audio (08904) completed CATE VASQUEZ [address], [address], [facility] 03/06/2024 12:06:20 4 SRT & Speech Recognition (01307) completed Kian STEVEN [address] [place] [address], [phone], [facility] 03/06/2024 12:06:23 Imaging Results None recorded. Procedure Notes None recorded. Medical Equipment None Reported. Medications Name Sig Start Date Stop Date Status Note LastModified by Organization Details LastModified Time prednisone 10 mg tablet PLEASE SEE ATTACHED FOR DETAILED DIRECTION S active Not Available Not Available No t Available atorvastat in 20 mg tablet 2014 active Medicatio n ID: [id number] Du ration Value: 90 Brand Name: atorvasta tin Send Method: E-Prescri bed Subs Allowed: subs [place] [facility] icName: atorvasta tin Not Available Not Available Not Available ketoconazo le 2 % shampoo active Not Available Not Available Not Available azithromyc in 250 mg tablet TAKE DIRECTED PER PACKAGE active Not Available Not Available No t Available ibuprofen 800 mg tablet 2015 active Medicatio n ID: [id number] Du ration Value: 10 Brand Name: ibuprofen Send Method: E-Prescri bed Subs Allowed: subs [place] Specia l Instructi on: TK 1 T PO TID Medic ationGene ricName: ibuprofen Not Available Not Available Not Available prednisone 20 mg tablet TAKE 3 TABLETS BY MOUTH DAILY active Not Available Not Available No t Available valsartan 160 mg-hydroch lorothiazi de 12.5 mg tablet 2014 active Medicatio n ID: [id number] Du ration Value: 90 Brand Name: valsartan -hydrochl orothiazi de Send Method: E-Prescri bed Subs Allowed: subs [place] Medica tionGener icName: valsartan -hydrochl orothiazi de Not Available Not Available Not Available sulfametho xazole 800 mg-trimeth oprim 160 mg tablet TAKE 1 TABLET BY MOUTH TWICE A DAY FOR 10 DAYS active Not Available Not Available No t Available triamcinol one acetonide 0.1 % topical cream PLEASE SEE ATTACHED FOR DETAILED DIRECTION S active Not Available Not Available No t Available spironolac tone 25 mg tablet active Not Available Not Available Not Available triamcinol one acetonide 0.1 % topical ointment PLEASE SEE ATTACHED FOR DETAILED DIRECTION S active Not Available Not Available No t Available levofloxac in 750 mg tablet TAKE 1 TABLET BY MOUTH DAILY active Not Available Not Available No t Available methylpred nisolone 4 mg tablets in a dose pack TAKE DIRECTED ON PACKAGE active Not Available Not Available No t Available albuterol sulfate HFA 90 mcg/actuat ion aerosol inhaler 2 PUFF INHALED EVERY 6 HOURS NEEDED FOR BRONCHOSP ASM active Not Available Not Available No t Available fluticason e propionate 50 mcg/actuat ion nasal spray,susp ension SPRAY 1 SPRAY INTO EACH NOSTRIL EVERY DAY FOR 30 DAYS active Not Available Not Available No t Available amoxicilli n 875 mg-potassi um clavulanat e 125 mg tablet TAKE 1 TABLET BY MOUTH EVERY 12 HOURS FOR 10 DAYS active Not Available Not Available No t Available fluocinolo ne 0.01 % scalp oil and shower cap active Not Available Not Available Not Available Vitals None Recorded Social History None recorded. Functional Status None recorded. Mental Status None recorded. Family History Nothing Reported. Medical History No medical history recorded. Gynecological HistoryNo gynecological history recorded. Obstetrics History GPAL:G 0 P 0 0 0 0 Past Encounters Encounter ID Performer Location Encounter Start Date Encounter Closed Date Diagnosis/Indication Diagnosis SNOMED-CT Code Diagnosis ICD10 Code Diagnosis Note [id number] CATE VASQUEZ [place] [facility] [place] [address] 03/05/2024 12:52:22 03/05/2024 14:23:46 Sensorineural hearing loss of bilateral ears 351933828 H90.3 [id number] CATE VASQUEZ [place] [address] [facility] [place] [address] 04/16/2024 10:56:04 04/16/2024 16:18:36 Sensorineural hearing loss of bilateral ears 539391261 H90.3 [id number] CATE VASQUEZ [place] [address] [facility] [place] [address] 05/21/2024 08:51:23 05/22/2024 07:04:37 Sensorineural hearing loss of bilateral ears [id number] H90.3 [id number] CATE VASQUEZ [place] [address] [facility],[address] [place] [address] 06/09/2024 09:52:06 06/10/2024 07:19:42 Sensorineural hearing loss of bilateral ears [id number] H90.3 [id number] CATE VASQUEZ [place] [address] [facility],[address] [place] [address] 07/02/2024 08:50:29 07/02/2024 14:04:13 Sensorineural hearing loss of bilateral ears 238062436 H90.3 [id number] CATE VASQUEZ [place] [address] [facility],[address] [place] [address] 07/10/2024 14:42:34 07/14/2024 13:26:21 Sensorineural hearing loss of bilateral ears [id number] H90.3 [id number] Kian STEVEN [place] [facility] [place] [address] 07/31/2024 15:44:24 08/01/2024 11:54:12 Sensorineural hearing loss of bilateral ears 449932793 H90.3 Health Concerns Section Related Observation LastModified by Organization Detai ls LastModified Time None Recorded Concern Status LastModified by Organization Details LastModified Time None Recorded Advance Directives Directive None Recorded Payers Encounter Date Sequence Insurance Name Policy Number Policy Candelario Covered Member ID Candelario Member ID Guarantor Name 05/21/2024 1 [facility] (MEDICARE REPLACEMENT PPO) [id number] [place] [id number] [place] 06/09/2024 1 [facility] (MEDICARE REPLACEMENT PPO) [id number] [place] G[place] [id number] [place] 07/02/2024 1 [facility] (MEDICARE REPLACEMENT PPO) [id number] [place] G[place] [id number] [place] 07/10/2024 1 [facility] (MEDICARE [place]PLACEMENT PPO) [id number] [place] G[place] [id number] [place] 07/31/2024 1 [facility] (MEDICARE [place]PLACEMENT PPO) [id number] [place] G[place] [id number] [place] Notes Date Note Type Note Provider Name and Address Organization Details Recorded Time 05/21/2024 text/html Patient returned for a follow up fitting of amplification as a {{first time user longstanding user of the same style devices* longstanding user of different devices}}. Patient reports that she has not been able to wear the devices due to discomfort. It does not appear that the canal mold sits well in her ear unless she pushes it all the way but that causes discomfort. Kian STEVEN [address] [facility], [place], [address], [facility] - [facility] 05/21/2024 09:45:10 06/09/2024 text/html Patient here {{f or an ear impression. They would like for ear impressions. They would like to order picker*}} {{custom made earmolds.* an earmold for the right ear. an earmold for the left ear.}} CATE VASQUEZ, [facility] [address], [address], [facility] 06/09/2024 10:27:05 07/02/2024 text/html Amplification HPIReported bypatient.Current satisfaction with amplificationthey are satisfied with current settings and technology Daily useconsistent use of amplification Status of current hearing technologyin working condition both;poor physical fit both;soreness/irritati on both Patient returned for a fitting of amplification to discuss their ongoing communication needs and progress with amplification. They reported that there are problems with the way that the {{hearing devices are* hearing device in the right ear is hearing device in the left ear is}} {{performing. sounding . fitting in the ear. fitting in the ears.* causing pain. causing discomfort. not working. not meeting expectations.}} Reported pain around the canal aperture after hours of use. The {{devices are* device is}} {{in warranty* out of warranty out of warranty and discontinued by the preanalytics team lead}} at this time. The patient reported {{no change in hearing or audibility* a decline in hearing}}. CATE VASQUEZ, [facility] [address] [address], [place], [address], [facility] 07/02/2024 09:42:57 07/10/2024 text/html Patient was here {{for an ear impression. They would like for ear impressions. They would like* to order picker}} {{custom made earmolds. an earmold for the right ear. an earmold for the left ear. their earmolds to be remade due to pain#}} The style of earmold {{is* to be fitted is}} a {{canal.* canal with canal lock. skeleton. half shell.}}. The material of earmold {{is* to be fitted is}} {{hard acrylic.* soft vinyl. soft silicone.}} CATE VASQUEZ, [facility] [address] [facility] 100, [place], [address], [place] - [facility] 07/10/2024 15:22:22 07/31/2024 text/html Patient was here {{for an ear impression. They would like for ear impressions. They would like to order picker*}} {{custom made earmolds. an earmold for the right ear. an earmold for the left ear. custom made earmolds, remade due to discomfort.#}} The style of earmold {{is* to be fitted is}} a {{canal.* canal with canal lock. skeleton. half shell.}}. The material of earmold {{is* to be fitted is}} {{hard acrylic.* soft vinyl. soft silicone.}} CATE VASQUEZ, [facility] [address] [facility] 100, [place], [address], [facility] - [facility] 08/01/2024 10:18:44 OBGyn Episode No OBEpisode recorded.
--- OUTSIDE RECORDS SUMMARY | 2024-09-02 11:50 | XMS_ITS ---
Author Organization John Garrett MD Address [address] [place] [phone] Support Name Relationship Address Phone John Garrett Caregiver [address] [facility] [address] [place] [phone] Martin Canales Caregiver [address] [facility] [address] [place] [phone] RICO DELGADILLONY Caregiver [address] [facility] [address] [place] [phone] Darion Quinones Caregiver [address] [facility] [address] [place] [phone] Leslie Choudhury Caregiver [address] [facility] [address] [place] [phone] Juventino Jerome Caregiver [address] [facility] [address] [place] [phone] GHULAM WELDON Caregiver [address] [facility] [address] [place] [phone] BRYANT GARCIA Caregiver [address] [facility] [address] [place] [phone] Ivy Santiago Caregiver [address] [facility] [address] [place] [phone] JENNIFER CHRISTIANSON Emergency Contact Unknown Dasha Christianson Guarantor Unknown [phone] Care Team Providers Care Magazine Designer Name Role Phone John Garrett Primary Care Provider [phone] Allergies Allergen (clinical drug ingredient) Drug/Non Drug Allergy documented on EMR Reaction Allergy Type Onset Date Status hydrochlorothiazide Hydrochlorothiazide rash Drug Aller gy Active Amoxicillin-Pot Clavulanate rash Drug Allergy Active lisinopril lisinopril (uncoded) cough Allergy Active morphine Morphine Sulfate itching Drug Allergy Active REASON FOR VISIT 4 week f/u Medications Medication SIG (Take, Route, Frequency, Duration) Notes Start Date End Date Status Ibuprofen 600 MG take 1 tablet as needed Orally Three times a day Not-Taking Symbicort 80-4.5 MCG/ACT 2 puffs Inhalat ion Twice a day Not-Taking ProAir RespiClick 108 (90 Base) MCG/ACT 2 puffs as needed Inhalation every 6 hrs for 30 days Active Spironolactone 25 mg TAKE 1 TABLET DAILY WITH FOOD Orally Once a day Active Amoxicillin-Pot Clavulanate 875-125 MG 1 tablet Orally every 12 hrs for 10 days 04/25/2024 Active Albuterol Sulfate HFA 108 (90 Base) MCG/ACT 1 puff as needed Inhalation every 4 hrs 05/01/2023 Not-Takin g Fluticasone Propionate 50 MCG/ACT SPRAY SPRAY 1 SPRAY INTO EACH NOSTRIL EVERY DAY FOR 30 DAYS for 30 Not-Taking Vital Signs Blood pressure systolic 138 mm Hg 04/25/20 24 Blood pressure diastolic 60 mm Hg 024 Height 64 in 04/25/2024 Weight 171 lbs 04/25/2024 BMI 29.35 kg/m2 04/25/2024 weight is down 3 pounds [facility] 03-17-24 Encounters Encounter Location Date Provider Diagnosis John Garrett MD [address] [place] [address] [place] [phone] 04/25/2024 John Garrett Elevated LFTs R79.89 and Acute recurrent maxillary sinusitis J01.01 Assessments Encounter Date Diagnosis (ICD Code) Assessment Notes Treatment Notes Treatment Clinical Notes Section Notes 04/25/2024 Elevated LFTs (ICD-10 - R79.89) has returned to normal with decreasing her wine consumption 04/25/2024 Acute recurrent maxillary sinusitis (ICD-10 - J01.01) patient verbalized understanding of medication and directions for use Plan Of Treatment Medication Medication Name Sig Start Date Stop Date Notes Amoxicillin-Pot Clavulanate 875-125 MG 1 tablet Orally every 12 hrs for 10 days 04/25/2024 Treatment Notes Assessment Notes Elevated LFTs has returned to norm al with decreasing her wine consumption Acute recurrent maxillary sinusitis carolann ent verbalized understanding of medication and directions for use Next Appt Details Provider Name:John Rogers ier, 09/12/2024 02:30:00 PM, [address] [facility] [address], [address], [place], [place], [phone], Progress Notes * Dasha CHRISTIANSON KDOB: [birth year] (78 yo F)Acc No.[id number]:04/25/2024 Progress Notes Patient:?Dasha Christianson Provider:?John Garrett MD :1945???Age:78 Y???Sex:Female D ate:04/25/2024 Address:[address] [place] [address], [facility] Subjective: * Chief Complaints: * ???4 week f/u * HPI: ???Symptom(s):? patient is a 78 yo female here for 4 week follow up visit, cut back on wine from nightly to just weekend. * ROS:?General/Constitutional:?Denies?Chills.?Denies?Fatigue.?Denies?Fever.?Denies?Headache.?ENT:?Patient denies?decreased sense of smell , any loss of taste , sore throat.?Patient complaining of?green phlegm from sinuses.?Denies?Sore throat.?Respiratory:?Denies?Cough.?Denies?Shortness of breath at rest.?Denies?Shortness of breath with exertion.?Cardiovascular:?Denies?Chest pain at rest.?Denies?Chest pain with exertion.?Denies?Dizziness.?Denies?Palpitations.?Denies?Shortness of breath.?Gastrointestinal:?Denies?Diarrhea.?Denies?Nausea.?Musculoskeletal:?Patient denies?muscle aches.?Peripheral Vascular:?Patient denies?red and blue toes.? * Medical History:? * Surgical History:? * Hospitalization/Major Diagno stic Procedure:? * Medications:?TakingSpironola ctone 25 mg Tablet TAKE 1 TABLET DAILY WITH FOOD Orally Once a dayProAir RespiClick 108 (90 Base) MCG/ACT Aerosol Powder Breath Activated 2 puffs as needed Inhalation every 6 hrsTaking Spironolactone 25 mg Tablet TAKE 1 TABLET DAILY WITH FOOD Orally Once a dayTaking ProAir RespiClick 108 (90 Base) MCG/ACT Aerosol Powder Breath Activated 2 puffs as needed Inhalation every 6 hrsNot-Taking/PRNFluticasone Propionate 50 MCG/ACT Suspension SPRAY SPRAY 1 SPRAY INTO EACH NOSTRIL EVERY DAY FOR 30 DAYS Albuterol Sulfate HFA 108 (90 Base) MCG/ACT Aerosol Solution 1 puff as needed Inhalation every 4 hrsIbuprofen 600 MG Tablet take 1 tablet as needed Orally Three times a daySymbicort 80-4.5 MCG/ACT Aerosol 2 puffs Inhalation Twice a dayMedication List reviewed and reconciled with the patientNot-Taking/PRN Fluticasone Propionate 50 MCG/ACT Suspension SPRAY SPRAY 1 SPRAY INTO EACH NOSTRIL EVERY DAY FOR 30 DAYS Not-Taking/PRN Albuterol Sulfate HFA 108 (90 Base) MCG/ACT Aerosol Solution 1 puff as needed Inhalation every 4 hrsNot-Taking/PRN Ibuprofen 600 MG Tablet take 1 tablet as needed Orally Three times a dayNot-Taking/PRN Symbicort 80-4.5 MCG/ACT Aerosol 2 puffs Inhalation Twice a dayMedication List reviewed and reconciled with the patient * Allergies:?lisinopril: cough Hydrochlorothiazide: rashMorphine Sulfate: itchingAmoxicillin-Pot Clavulanate: rashyes[Allergies Verified] Objective: * Vitals:?Ht: 64, Wt:171, BMI: 29.35, BP:138/60 weight is down 3 pounds since 03-17-24. * ???Past Orders: ???Lab:Liver Panel (Order Da te - 04/14/2024) (Collection Date - 04/14/2024) ? Value Reference Range ?Bilirubin Total 1.2 H 0.0- 1.0 - mg/dL ?Bilirubin Direct 0.3 0.0 -0.5 - mg/dL ?Aspartate Amino Transferase 28 5-31 - U/L ?Alanine Aminotransferase 31 0-31 - U/L ?Total Protein 7.4 6.5-8. 0 - g/dL ?Albumin Level 4.1 3.5-5. 0 - g/dL ?Alkaline Phosphatase 94 39-117 - U/L * Examination: ???General Examination: ?GENERAL APPEARANCE:? alert, well hydrated, in no distress , female.?HEAD:? normocephalic, abnormal tender in maxillary sinuses and frontal sinuses.?SKIN:?, good turgor.?HEART:? no murmurs, rubs, gallops, regular rate and rhythm.?LUNGS:? no wheezes, rales, rhonchi, good air movement, clear to auscultation bilaterally.? Assessment: * Assessment: 1.?Elevated LFTs - R79.89 (P rimary)?2.?Acute recurrent maxillary sinusitis - J01.01? Plan: * Treatment: 2.?Acute recurrent maxillary sinusitis? Start Amoxicillin-Pot Clavulanate Tablet, 875-125 MG, 1 tablet, Orally, every 12 hrs, 10 days, 20 Tablet, Refills 0.?? Notes: patient verbalized understanding of medication and directions for use?? * Procedure Codes:? * * Sign off status: Completed true * Provider:?Jonh Garrett MD Date:?0 04/25/2024 Generated for Louise tidwell/Rosi/Yadiraitting on:?09/02/2024 11:50 AM EST History and Physical Notes * HPI (History of Present Illness) Category Sub-Category Detail Notes Category Not es Symptom(s) patient is a 78 yo female here for 4 week follow up visit, cut back on wine from nightly to just weekend. Examination Category Sub-Category Detail Notes Category Not es General Examination GENERAL APPEARANCE: alert, w ell hydrated, in no distress , female HEAD: normocephalic, abnor mal tender in maxillary sinuses and frontal sinuses HEART: no murmurs, rubs, ga llops, regular rate and rhythm LUNGS: no wheezes, rales, r honchi, good air movement, clear to auscultation bilaterally SKIN: , good turgor
--- OUTSIDE RECORDS SUMMARY | 2024-09-02 11:51 | XMS_ITS ---
Author Organization John Garrett MD Address [address] [place] [address] [phone] Support Name Relationship Address Phone John Garrett Caregiver [address] [facility] [address] [place] [address] [phone] Martin Canales Caregiver [address] [facility] [address] [place] [address] [phone] RICO DELGADILLONY Caregiver [address] [facility] [address] [place] [address] [phone] Darion Quinones Caregiver [address] [place] [address] [phone] Leslie Choudhury Caregiver [address] [facility] [address] [place] [address] [phone] Juventino Jerome Caregiver [address] [facility] [address] [place] [address] [phone] ANG GHULAM Caregiver [address] [facility] [address] [place] [address] [phone] BRYANT GARCIA Caregiver [address] [facility] [address] [place] [address] [phone] Ivy Santiago Caregiver [address] [facility] [address] [place] [address] [phone] MARY EDBECCA Emergency Contact Unknown Dasha Christianson Guarantor Unknown [phone] Care Team Providers Care Transformer Mechanic Name Role Phone John Garrett Primary Care Provider Results Component Value Reference Range Notes Complete Blood Count Auto Di ff (Not yet reviewed by provider) Interpretation: Performing Lab:[facility], [address] [place] [phone] Notes/Report: White Blood Count 7.7 4.8-10.8 X10*3/uL Red Blood Count 4.59 4.20-5.50 X10*6/uL Hemoglobin 14.5 12.0-16.0 g/dl Hematocrit 42.3 37.0-47.0 % Mean Corpuscular Volume 92.2 80.0-98.0 fL Mean Corpuscular Hemoglobin 31.6 27.0-33.0 pg Mean Corpuscular HGB Conc 34.3 31.0-35.0 g/dl Red Cell Distribution Width 12.6 11.0-16.0 % Platelet Count 321 160-400 X10*3/uL Mean Platelet Volume 10.0 9.4-12.3 fL Neutrophils Percent Auto 53.6 45-73 % Imm Gran Pct Auto 0.5 0.0-0.4 % Lymphocytes Percent Auto 28.9 20-40 % Monocytes Percent Auto 8.8 2-11 % Eosinophils Percent Auto 7.0 0-4 % Basophils Percent Auto 1.2 0-2 % NRBC Pct Auto 0.0 0.0-0.2 /100WBC Neutrophils Absolute Auto 4.2 2.0-8.3 x10*3/u L Imm Gran Abs Auto 0.04 0.00-0.03 X10*3/uL Lymphocytes Absolute Auto 2.2 1.2-4.9 X10*3/u L Monocytes Absolute Auto 0.7 0.1-1.2 X10*3/uL Eosinophils Absolute Auto 0.5 0.0-0.4 X10*3/u L Basophils Absolute Auto 0.1 0.0-0.2 X10*3/uL NRBC Abs Auto 0.000 0.0-0.012 X10*3/uL REASON FOR VISIT FASTING LABS Encounters Encounter Location Date Provider Diagnosis John Garrett MD [address] [place] [address] [address] [place], [place] [phone] 09/02/2024 John Garrett Blood tests for rout ine general physical examination Z00.00 ; Essential hypertension I10 ; Vitamin D deficiency E55.9 ; Pure hypercholesterolemia E78.00 ; Microscopic hematuria R31.29 and Elevated WBC count D72.829 Assessments Encounter Date Diagnosis (ICD Code) Assessment Notes Treatment Notes Treatment Clinical Notes Section Notes 09/02/2024 Blood tests for rout ine general physical examination (ICD-10 - Z00.00) 09/02/2024 Essential hypertensi on (ICD-10 - I10) 09/02/2024 Vitamin D deficiency (ICD-10 - E55.9) 09/02/2024 Pure hypercholesterolemia (ICD-10 - E78.00) 09/02/2024 Microscopic hematuri a (ICD-10 - R31.29) 09/02/2024 Elevated WBC count (ICD-10 - D72.829) Plan Of Treatment Pending Test Test Name Order Date Complete Blood Count Auto Diff Comprehensive [place]. Panel Fast 5 Lipid Panel 09/02/2024 Vitamin D 25-OH Total 09/02/2024 UA ClnCatch+Micro w/rflx Cult 09/02/2024 Next Appt Details Provider Name:John Rogers ier, 09/12/2024 02:30:00 PM, [address] [facility], [address], [place], [place], [phone], Progress Notes * Dasha CHRISTIANSON KDOB: [birth year] (79 yo F)Acc No.[id number]:09/02/2024 Progress Note Patient:?Dasha CHRISTIANSON Provider:?John Garrett MD :1945???Age:79 Y???Sex:Female D ate:09/02/2024 Address:[address] [place], [place] [phone] Subjective: * Chief Complaints: * ???1. FASTING LABS. * Medical History:? Objective: * Vitals:? Assessment: * Assessment: 1.?Blood tests for routine g eneral physical examination - Z00.00 (Primary)???2.?Essential hypertension - I10???3.?Vitamin D deficiency - E55.9???4.?Pure hypercholesterolemia - E78.00???5.?Microscopic hematuria - R31.29???6.?Elevated WBC count - D72.829??? Plan: * Treatment: 2.?Essential hypertension?LAB: Complete Blood Count Auto Diff (Collection Date & Time - 09/02/2024 07:30 AM) ?LAB: Comprehensive [place]. Panel Fast ?LAB: Lipid Panel ?LAB: Vitamin D 25-OH Total ?LAB: UA ClnCatch+Micro w/rflx Cult 3.?Vitamin D deficiency?LAB: Complete Blood Count Auto Diff (Collection Date & Time - 09/02/2024 07:30 AM) ?LAB: Comprehensive [place]. Panel Fast ?LAB: Lipid Panel ?LAB: Vitamin D 25-OH Total ?LAB: UA ClnCatch+Micro w/rflx Cult 4.?Pure hypercholesterolemia ?LAB: Complete Blood Count Auto Diff (Collection Date & Time - 09/02/2024 07:30 AM) ?LAB: [facility] [place]. Panel Fast ?LAB: Lipid Panel ?LAB: Vitamin D 25-OH Total ?LAB: UA ClnCatch+Micro w/rflx Cult 5.?Microscopic hematuria?LAB: Complete Blood Count Auto Diff (Collection Date & Time - 09/02/2024 07:30 AM) ?LAB: Comprehensive [place]. Panel Fast ?LAB: Lipid Panel ?LAB: Vitamin D 25-OH Total ?LAB: UA ClnCatch+Micro w/rflx Cult 6.?Elevated WBC count?LAB: Complete Blood Count Auto Diff (Collection Date & Time - 09/02/2024 07:30 AM) ?LAB: Comprehensive [place]. Panel Fast ?LAB: Lipid Panel ?LAB: Vitamin D 25-OH Total ?LAB: UA ClnCatch+Micro w/rflx Cult * Procedure Codes:?57707 VENIP UNCT, ROUTINE* * * The named appointment provid er may or may not be the originator of this progress note, and it is not deemed complete until electronically signed by the appointment provider. Sign off status: Pending * Provider:?John Garrett MD Date:?0 09/02/2024 Generated for Louise tidwell/Rosi/Yadiraitting on:?09/02/2024 11:50 AM EST
== END 2024-09-02 10:44 | disposition home or self-care (01) ==
LOC: HO.LNP 10:43
PROVIDERS: Visit Provider Internal Medicine
DX: Z00.00 Encounter for general adult medical examination without abnormal findings (principal); I10 Essential (primary) hypertension; E55.9 Vitamin D deficiency, unspecified; E78.00 Pure hypercholesterolemia, unspecified; R31.29 Other microscopic hematuria; D72.829 Elevated white blood cell count, unspecified
CPT/HCPCS: 80053; 80061; 82306; 85025

== ENCOUNTER 2024-09-12 15:15 | Outpatient (REF) | payer MEDICARE, SELFPAY ==
[2024-09-12 15:25] LABS: Appearance Urine Clear; Color Urine Yellow; Glucose Urine UA Negative (Negative); Leukocyte Esterase Urine Negative (Negative); Nitrite Urine Negative (Negative); UMIC TRIGGER UACC YES; Urine Blood Small (1+) (Negative); Urine Ketones Negative (Negative); Urine Protein Negative (Neg-Trace)
[2024-09-12 15:30] LABS: Bacteria Urine None Seen (None Seen); Hyaline Casts Urine 0-2 /LPF (0-2); Squamous Epithelial Cell Urine 0-2 /HPF (0-2); WBC Urine 0-5 /HPF (0-5)
== END 2024-09-12 15:16 | disposition home or self-care (01) ==
LOC: HO.LNP 15:15
PROVIDERS: Visit Provider Internal Medicine
DX: E78.00 Pure hypercholesterolemia, unspecified (principal); I10 Essential (primary) hypertension
CPT/HCPCS: 81001

== ENCOUNTER 2025-06-03 14:55 | Outpatient (REF) | payer MEDICARE, SELFPAY ==
--- OUTSIDE RECORDS SUMMARY | 2024-09-04 05:04 | XMS_ITS ---
Author Organization John Garrett MD Address [address] [place] [phone] Support Name Relationship Address Phone John Garrett Caregiver [address] [facility] [address] [place] [address] [phone] Martin Canales Caregiver [address] [facility] [address] [place] [address] [phone] DIANE DELGADILLO Caregiver [address] [facility] [address] [place] [address] [phone] Darion Quinones Caregiver [address] [facility] [address] [place] [address] [phone] Leslie Choudhury Caregiver [address] [facility] [address] [place] [address] [phone] Juventino Jerome Caregiver [address] [facility] [address] [place] [address] [phone] GHULAM WELDON Caregiver [address] [facility] [address] [place] [address] [phone] BRYANT GARCIA Caregiver [address] [facility] [address] [place] [address] [phone] Ivy Santiago Caregiver [address] [facility] [address] [place] [address] [phone] JENNIFER CHRISTIANSON Emergency Contact Unknown Dasha Christianson Guarantor Unknown [phone] Care Team Providers Care Filter Operator Name Role Phone John Garrett Primary Care Provider REASON FOR VISIT RF spironolactone Medications Medication SIG (Take, Route, Fr equency, Duration) Notes Start Date End Date Status Spironolactone 25 mg TAKE 1 TABLET DAILY WITH FOOD Orally Once a day for 90 days Ac tive Encounters Encounter Location Date Provider Diagnosis John Garrett MD [address] [facility] [address] [place], [place] [phone] 09/04/2024 John Garrett Essential hypertension I10 Assessments Encounter Date Diagnosis (ICD Code) Assessment Notes Treatment Notes Treatment Clinical Notes Section Notes 09/04/2024 Essential hypertension (ICD-10 - I10) Plan Of Treatment Medication Medication Name Sig Start Date Stop Date Notes Spironolactone 25 mg TAKE 1 TABLET DAILY WITH FOOD Orally Once a day for 90 days Next Appt Details Provider Name:John wiley, 09/08/2025 07:30:00 AM, [address] [place] [address], Suite [facility], [place], [place], [phone], Provider Name:John wiley, 09/15/2025 01:00:00 PM, [address] [place] [address], Suite [facility], [place], [place], [phone], Progress Notes * GLICA, Hayward KDOB: [birth year] (79 yo F)Acc No.[id number]:09/04/2024 Patient: Mode OPRTILLO Capitola Clint :1945 A ge:79 Y S ex:Female Address:[address] [place] [id number] * Refills Refill Spironolactone Tablet, 25 mg, Orally, 90, TAKE 1 TABLET DAILY WITH FOOD, Once a day, 90 days, Refills=3 * true * Date: Generated for Louise tidwell/Rosi/eTransmitting on: 07:24 PM EDT
--- OUTSIDE RECORDS SUMMARY | 2024-09-12 09:30 | XMS_ITS ---
Author Organization John Garrett MD Address [address] [place] [address] [phone] Support Name Relationship Address Phone John Garrett Caregiver [address] [facility] [address] [place] [address] [phone] Martin Canales Caregiver [address] [facility] [address] [place] [address] [phone] RICO DELGADILLONY Caregiver [address] [facility] [address] [place] [address] [phone] Darion Quinones Caregiver [address] [facility] [address] [place] [address] [phone] Leslie Choudhury Caregiver [address] [facility] [address] [place] [address] [phone] Juventino Jerome Caregiver [address] [facility] [address] [place] [address] [phone] GHULAM WELDON Caregiver [address] [facility] [address] [place] [address] [phone] BRYANT GARCIA Caregiver [address] [facility] [address] [place] [address] [phone] Ivy Santiago Caregiver [address] [facility] [address] [place] [address] [phone] JENNIFER CHRISTIANSON Emergency Contact Unknown [phone] Dasha Christianson Guarantor Unknown [phone] Care Team Providers Care Switchboard Clerk Name Role Phone John Garrett Primary Care Provider [phone] Allergies Allergen (clinical drug ingredient) Drug/Non Drug Allergy documented on EMR Reaction Allergy Type Onset Date Status morphine Morphine Sulfate itching Drug Allergy Active hydrochlorothiazide Hydrochlorothiazide rash Drug Aller gy Active Amoxicillin-Pot Clavulanate rash Drug Allergy Active lisinopril lisinopril (uncoded) cough Allergy Active Results Component Value Reference Range Notes UA ClnCatch+Micro w/rflx Cul t Reviewed date:09/12/2024 04:06:48 PM Interpretation: Performing Lab:[facility], [address] [place] [id number] Notes/Report: Urine, Clean Catch Color Urine Yellow Appearance Urine Clear PH 6.0 5.0-9.0 Glucose Urine UA Negative Negative mg/dL Urine Blood Small (1+) Negative Specific [place] - Urine 1.020 1.005-1.025 Urine Protein Negative Neg-Trace mg/dL Urine Ketones Negative Negative mg/dL Nitrite Urine Negative Negative Leukocyte Esterase Urine Negative Negative RBC Urine 6-10 0-2 /HPF WBC Urine 0-5 0-5 /HPF Squamous Epithelial Cell Urine 0-2 0-2 /HPF Bacteria Urine None Seen None Seen Hyaline Casts Urine 0-2 0-2 /LPF REASON FOR VISIT COMP Medications Medication SIG (Take, Route, Frequency, Duration) Notes Start Date End Date Status Fluticasone Propionate 50 MCG/ACT SPRAY SPRAY 1 SPRAY INTO EACH NOSTRIL EVERY DAY FOR 30 DAYS for 30 Not-Taking Albuterol Sulfate HFA 108 (90 Base) MCG/ACT 1 puff as needed Inhalation every 4 hrs 05/01/2023 Not-Takin g Ibuprofen 600 MG take 1 tablet as needed Orally Three times a day Not-Taking Symbicort 80-4.5 MCG/ACT 2 puffs Inhalat ion Twice a day Not-Taking ProAir RespiClick 108 (90 Base) MCG/ACT 2 puffs as needed Inhalation every 6 hrs Active Spironolactone 25 mg TAKE 1 TABLET DAILY WITH FOOD Orally Once a day Active Social History Tobacco Use: Social History Observation Description Date Details (start date - stop date) Former Smoker NA - NA Tobacco Use/Smoking Question Answer Notes Patient is a former smoker How long has it been since y ou last smoked? > 10 years Additional Findings: Tobacco Non-User Fo rmer smoker, currently using no form of tobacco Alcohol Screen Question Answer Notes Did you have a drink contain ing alcohol in the past year? Yes How often did you have a dri nk containing alcohol in the past year? 2 to 4 times a month (2 points) How many drinks did you have on a typical day when you were drinking in the past year? 1 or 2 drinks (0 point) How often did you have 6 or more drinks on one occasion in the past year? Never (0 point) Points 2 Interpretation Negative Vital Signs Blood pressure systolic 154 mm Hg 09/12/19 25 Blood pressure diastolic 66 mm Hg 025 Height 64 in 09/12/2024 Weight 173 lbs 09/12/2024 BMI 29.69 kg/m2 09/12/2024 weight is up 2 pounds since 04-25-24 Encounters Encounter Location Date Provider Diagnosis John Garrett MD [address] [place] [address] Drive [address] [place], [place] [phone] 09/12/2024 John Garrett Pure hypercholestero lemia E78.00 ; Annual physical exam Z00.00 ; Essential hypertension I10 ; Mild intermittent asthma without complication J45.20 and Depression screening Z13.31 Assessments Encounter Date Diagnosis (ICD Code) Assessment Notes Treatment Notes Treatment Clinical Notes Section Notes 09/12/2024 Pure hypercholesterolemia (ICD-10 - E78.00) stable, advised on diet , will continue current regiment and will continue to monitor z 09/12/2024 Annual physical exam (ICD-10 - Z00.00) labs reviewed and discussed with patient z 09/12/2024 Essential hypertensi on (ICD-10 - I10) doing well, will continue current regiment z 09/12/2024 Mild intermittent as thma without complication (ICD-10 - J45.20) stale, will continue current regiment z 09/12/2024 Depression screening (ICD-10 - Z13.31) negative screen z Plan Of Treatment Medication Medication Name Sig Start Date Stop Date Notes ProAir RespiClick 108 (90 Ba se) MCG/ACT 2 puffs as needed Inhalation every 6 hrs Spironolactone 25 mg TAKE 1 TABLET DAILY WITH FOOD Orally Once a day Treatment Notes Assessment Notes Pure hypercholesterolemia stable, advise d on diet , will continue current regiment and will continue to monitor Annual physical exam labs reviewed and d iscussed with patient Essential hypertension doing well, will continue current regiment Mild intermittent asthma without complic ation stale, will continue current regiment Depression screening negative screen Next Appt Details Follow Up: 6 Months, Reason: Provider Name:John wiley, 09/08/2025 07:30:00 AM, [address] [facility], [address], [place], [place], [phone], Provider Name:John Rogers chrisr, 09/15/2025 01:00:00 PM, [address] [facility], [address], [place], [place], [phone], Progress Notes * Dasha CHRISTIANSON KDOB: [birth year] (79 yo F)Acc No.[id number]:09/12/2024 Patient: Dasha FINE Provider: Mode Garrett MD :1945 A ge:79 Y S ex:Female Date:09/12/2024 Address:[address] [place] [address], [facility] Subjective: * Chief Complaints: * C OMP * HPI: D epression Screening: PHQ-9 L ittle interest or pleasure in doing things N ot at all, F eeling down, depressed, or hopeless N ot at all, T rouble falling or staying asleep, or sleeping too much N ot at all, F eeling tired or having little energy N ot at all, P oor appetite or overeating N ot at all, F eeling bad about yourself or that you are a failure, or have let yourself or your family down N ot at all, T rouble concentrating on things, such as reading the newspaper or watching television N ot at all, M oving or speaking so slowly that other people could have noticed; or the opposite, being so fidgety or restless that you have been moving around a lot more than usual N ot at all, T houghts that you would be better off or of hurting yourself in some way N ot at all, T otal Score 0 . I nterpretation and Intervention D epression Screening Findings N egative, F ollow-Up for Depression : review of PHQ-9 found negative result, no follow-up needed. C ommunication Needs: Communication Needs D oes the patient have a hearing impairment Y es, I f yes, what is the hearing impairment? H pierre of hearing, Hearing Aids, D oes the patient have a vision impairment? Y es, I f yes, what is the vision impairment? G lasses, D oes the patient have a cognition impairment? N o. F all Risk: History H ave you had any falls with injury in the past year? N o, H ave you had two or more falls in the past year? N o. S ROSARIO Questions: SDOH Questions I n the past year have you been worried about losing housing? N o, I n the past year have you or any family members you live with been unable to get any of the following when it was really needed? Check all that apply: N one. S ymptom(s): patient is a 79 yo female here for yearky evaluatiob with review of recent labs and follow up of chronic issues. * ROS: G eneral/Constitutional: Patient denies f atigue, headache. C hange in appetite?denies. C hills d enies. F ever d enies. O phthalmologic: Blurred vision d enies. D ischarge d enies. P ain d enies. E NT: Patient denies d ecreased sense of smell, any loss of taste, sore throat. D ecreased hearing d enies. S ore throat d enies. S wollen glands?denies. E ndocrine: Cold intolerance d enies. E xcessive thirst d enies. H eat intolerance d enies. W eight loss d enies. R espiratory: Cough d enies. S hortness of breath at rest d enies. S hortness of breath with exertion d enies. W heezing d enies. C ardiovascular: Chest pain at rest d enies. C hest pain with exertion?denies. I rregular heartbeat d enies. S hortness of breath d enies. ? G astrointestinal: Abdominal pain d enies. C hange in bowel habits d enies. D iarrhea d enies. N ausea d enies. R ectal bleeding d enies. V omiting d enies . G enitourinary: Blood in urine d enies. D ifficulty urinating d enies. F requent urination d enies. U rinary incontinence D enies. M usculoskeletal: Patient denies m uscle aches. P ainful joints d enies. W eakness d enies. P eripheral Vascular: Patient denies r ed and blue toes. S kin: Dry skin d enies. I tching d enies. D enies?Mole(s), changes in moles, new moles or any lesions of concern. D enies P hotosensitivity. R preeti d enies. N eurologic: Dizziness d enies. F ainting d enies. H eadache?denies. * Medical History: * Surgical History: * Hospitalization/Major Diagno stic Procedure: * Family History: F ather: 55 yrs, cardiac disease, diagnosed with CHF. M other: 76 yrs, kidney failure. 1 sister(s) . 1 son(s) - healthy. . m other, kidney failure, No pertinent family medical history, Denies mental health/substance abuse family history, Denies mental health/substance abuse family history, Denies mental health/substance abuse family history. * Social History: T obacco Use: T obacco Use/Smoking P atient is a f ormer smoker, H ow long has it been since you last smoked? > 10 years, A dditional Findings: Tobacco Non-User F ormer smoker, currently using no form of tobacco. D rugs/Alcohol: A lcohol Screen D id you have a drink containing alcohol in the past year? Y es, H ow often did you have a drink containing alcohol in the past year? 2 to 4 times a month (2 points), H ow many drinks did you have on a typical day when you were drinking in the past year? 1 or 2 drinks (0 point), H ow often did you have 6 or more drinks on one occasion in the past year? N ever (0 point), P oints 2 , I nterpretation N egative. M iscellaneous: C affeine: yes, frequency:tea 1 cup per day. Children: yes. Community involvements: yes, active in community organizations. Exercise: yes, Balance at [facility]. Housing: owning. Living with: spouse. Marital status: . Occupation: works full-time. Pets: dog. Travel outside of the [place]: no. * Medications: T akingProAir RespiClick 108 (90 Base) MCG/ACT Aerosol Powder Breath Activated 2 puffs as needed Inhalation every 6 hrs Spironolactone 25 mg Tablet TAKE 1 TABLET DAILY WITH FOOD Orally Once a day Taking ProAir RespiClick 108 (90 Base) MCG/ACT Aerosol Powder Breath Activated 2 puffs as needed Inhalation every 6 hrs Taking Spironolactone 25 mg Tablet TAKE 1 TABLET DAILY WITH FOOD Orally Once a day Not-Taking/PRNFluticasone Propionate 50 MCG/ACT Suspension SPRAY SPRAY 1 SPRAY INTO EACH NOSTRIL EVERY DAY FOR 30 DAYS Albuterol Sulfate HFA 108 (90 Base) MCG/ACT Aerosol Solution 1 puff as needed Inhalation every 4 hrs Ibuprofen 600 MG Tablet take 1 tablet as needed Orally Three times a day Symbicort 80-4.5 MCG/ACT Aerosol 2 puffs Inhalation Twice a day Not-Taking/PRN Fluticasone Propionate 50 MCG/ACT Suspension SPRAY SPRAY 1 SPRAY INTO EACH NOSTRIL EVERY DAY FOR 30 DAYS Not-Taking/PRN Albuterol Sulfate HFA 108 (90 Base) MCG/ACT Aerosol Solution 1 puff as needed Inhalation every 4 hrs Not-Taking/PRN Ibuprofen 600 MG Tablet take 1 tablet as needed Orally Three times a day Not-Taking/PRN Symbicort 80-4.5 MCG/ACT Aerosol 2 puffs Inhalation Twice a day DiscontinuedAmoxicillin-Pot Clavulanate 875-125 MG Tablet 1 tablet Orally every 12 hrs Medication List reviewed and reconciled with the patientDiscontinued Amoxicillin-Pot Clavulanate 875-125 MG Tablet 1 tablet Orally every 12 hrs Medication List reviewed and reconciled with the patient * Allergies: l isinopril: coughHydrochlorothiazide: rashMorphine Sulfate: itchingAmoxicillin- Pot Clavulanate: rashyes[Allergies Verified] Objective: * Vitals: H t: 64, Wt: 173, BMI:29.69, BP:154/66, Repeat BP:120/80, Wt-k.47. weight is up 2 pounds since 04-25-24. * P ast Orders: L ab:Complete Blood Count Auto Diff (Order Date - 09/02/2024) (Collection Date & Time - 09/02/2024 07:30 AM) Value Reference Range White Blood Count 7.7 4.8-10.8 - X10*3/uL Red Blood Count 4.59 4.20-5.50 - X10*6/uL Hemoglobin 14.5 12.0-16.0 - g/dl Hematocrit 42.3 37.0-47.0 - % Mean Corpuscular Volume 92.2 80.0-98.0 - fL Mean Corpuscular Hemoglobin 31.6 27.0-33.0 - pg Mean Corpuscular HGB Conc 34.3 31.0-35.0 - g/ dl Red Cell Distribution Width 12.6 11.0-16.0 - % Platelet Count 321 160-400 - X10*3/uL Mean Platelet Volume 10.0 9.4-12.3 - fL Neutrophils Percent Auto 53.6 45-73 - % Imm Gran Pct Auto 0.5 H 0.0-0.4 - % Lymphocytes Percent Auto 28.9 20-40 - % Monocytes Percent Auto 8.8 2-11 - % Eosinophils Percent Auto 7.0 H 0-4 - % Basophils Percent Auto 1.2 0-2 - % NRBC Pct Auto 0.0 0.0-0.2 - /100WBC Neutrophils Absolute Auto 4.2 2.0-8.3 - x10* 3/uL Imm Gran Abs Auto 0.04 H 0.00-0.03 - X10*3/uL Lymphocytes Absolute Auto 2.2 1.2-4.9 - X10* 3/uL Monocytes Absolute Auto 0.7 0.1-1.2 - X10*3/ uL Eosinophils Absolute Auto 0.5 H 0.0-0.4 - X10* 3/uL Basophils Absolute Auto 0.1 0.0-0.2 - X10*3/ uL NRBC Abs Auto 0.000 0.0-0.012 - X10*3/uL L ab:Comprehensive Gilbert. Panel Fast (Order Date - 09/02/2024) (Collection Date & Time - 09/02/2024 07:30 AM) Value Reference Range Sodium 135 135-145 - mmol/L Bilirubin Total 1.2 H 0.0-1.0 - mg/dL Aspartate Amino Transferase 35 H 5-31 - U/L Alanine Aminotransferase 32 H 0-31 - U/L Total Protein 7.5 6.5-8.0 - g/dL Albumin Level 4.1 3.5-5.0 - g/dL Alkaline Phosphatase 96 39-117 - U/L Potassium 3.9 3.3-5.1 - mmol/L Chloride 104 96-108 - mmol/L Carbon Dioxide 25 22-29 - mmol/L Anion Gap 10 L 12-20 - Blood Urea Nitrogen 18 H 9-16 - mg/dL Creatinine 0.87 0.5-1.4 - mg/dL Estimated Glomerular Filt Rate > 60 - Glucose Fasting 100 H 60-99 - mg/dL Calcium 10.3 H 8.4-10.2 - mg/dL L ab:Lipid Panel (Order Date - 09/02/2024) (Collection Date & Time - 09/02/2024 07:30 AM) Value Reference Range Triglycerides 154 H <150 - mg/dL Cholesterol 225 H <200 - mg/dL LDL Cholesterol Calculated 132 H <100 - mg/dL HDL Cholesterol 63 >40 - mg/dL L ab:Vitamin D 25-OH Total (Order Date - 09/02/2024) (Collection Date & Time - 09/02/2024 07:30 AM) Value Reference Range Vitamin D 25-OH Total 70.7 >30 - ng/mL * Examination: G eneral Examination: GENERAL APPEARANCE: w ell developed, well nourished, in no acute distress. HEAD: n ormocephalic, atraumatic. EYES: p upils equal, round, reactive to light and accommodation, sclera non-icteric. EARS: n ormal. ORAL CAVITY: m ucosa moist. THROAT: c lear. NECK/THYROID: n brian supple, full range of motion, no cervical lymphadenopathy, no bruits. SKIN: w arm and dry, no suspicious lesions. HEART: r egular rate and rhythm, S1, S2 normal, no murmurs.? LUNGS: c lear to auscultation bilaterally. BREASTS: d one by route service manager. ABDOMEN: s oft, nontender, nondistended, bowel sounds present, normal, no organomegaly , no masses palpable. RECTAL EXAM: d one by route service manager. FEMALE GENITOURINARY: d one by route service manager. EXTREMITIES: n o clubbing, cyanosis, or edema. NEUROLOGIC: n onfocal, motor strength normal upper and lower extremities, sensory exam intact. Assessment: * Assessment: 1. A nnual physical exam - Z00.00 (Primary) 2 . P ure hypercholesterolemia - E78.00 3 . E ssential hypertension - I10 4 . M ild intermittent asthma without complication - J45.20 5 . D epression screening - Z13.31? z Plan: * Treatment: 2. P ure hypercholesterolemia L AB: UA ClnCatch+Micro w/rflx Cult (Collection Date & Time - 09/12/2024 01:30 PM) Notes: stable, advised on diet , will continue current regiment and will continue to monitor ? 3. E ssential hypertension Continue Spironolactone Tablet, 25 mg, TAKE 1 TABLET DAILY WITH FOOD, Orally, Once a day. ? L AB: UA ClnCatch+Micro w/rflx Cult (Collection Date & Time - 09/12/2024 01:30 PM) Notes: doing well, will continue current regiment 4. M ild intermittent asthma without complication Continue ProAir RespiClick Aerosol Powder Breath Activated, 108 (90 Base) MCG/ACT, 2 puffs as needed, Inhalation, every 6 hrs. Notes: stale, will continue current regiment 5. D epression screening Notes: negative screen * Procedure Codes: * Follow Up: 6 Months * * Sign off status: Completed true * Provider: Mode Garrett MD Date: 0 09/12/2024 Generated for Louise tidwell/Rosi/Yadiraitting on: 1 07:24 PM EDT History and Physical Notes * HPI (History of Present Illness) Category Sub-Category Detail Notes Category Not es Symptom(s) patient is a 79 yo female here for yearky evaluatiob with review of recent labs and follow up of chronic issues. Depression Screening PHQ-9 Little inte rest or pleasure in doing things: Not at all Feeling down, depressed, or hopeless: No t at all Trouble falling or staying asleep, or sl eeping too much: Not at all Feeling tired or having little energy: N ot at all Poor appetite or overeating: Not at all Feeling bad about yourself o r that you are a failure, or have let yourself or your family down: Not at all Trouble concentrating on thi ngs, such as reading the newspaper or watching television: Not at all Moving or speaking so slowly that other people could have noticed; or the opposite, being so fidgety or restless that you have been moving around a lot more than usual: Not at all Thoughts that you would be b eunice off or of hurting yourself in some way: Not at all Total Score: 0 Interpretation and Intervention Depression Nabeel jackson Findings: Negative Follow-Up for Depression: : review of PH Q-9 found negative result, no follow-up needed SDOH Questions SDOH Questions In the past year have you been worried about losing housing?: No In the past year have you or any family members you live with been unable to get any of the following when it was really needed? Check all that apply:: None Fall Risk History Have you had any falls with injury i n the past year?: No Have you had two or more falls in the year?: No Communication Needs Communication Needs Does the patient have a hearing impairment: Yes If yes, what is the hearing impairment?: Hard of hearing, Hearing Aids Does the patient have a vision impairmen t?: Yes If yes, what is the vision impairment?: Glasses Does the patient have a cognition impair ment?: No Examination Category Sub-Category Detail Notes Category Not es General Examination GENERAL APPEARANCE: well dev eloped, well nourished, in no acute distress HEAD: normocephalic, atrau matic EYES: pupils equal, round, reactive to light and accommodation, sclera non-icteric EARS: normal THROAT: clear NECK/THYROID: neck supple, full ra nge of motion, no cervical lymphadenopathy, no bruits HEART: regular rate and rhy thm, S1, S2 normal, no murmurs LUNGS: clear to auscultatio n bilaterally ABDOMEN: soft, nontender, non distended, bowel sounds present, normal, no organomegaly , no masses palpable NEUROLOGIC: nonfocal, motor stre ngth normal upper and lower extremities, sensory exam intact SKIN: warm and dry, no aric picious lesions EXTREMITIES: no clubbing, cyanosi s, or edema BREASTS: done by route service manager RECTAL EXAM: done by route service manager FEMALE GENITOURINARY: done by route service manager ORAL CAVITY: mucosa moist
--- OUTSIDE RECORDS SUMMARY | 2025-01-12 10:15 | XMS_ITS ---
Author Organization John Garrett MD Address [address] [place] [address] [phone] Support Name Relationship Address Phone John Garrett Caregiver [address] [facility] [address] [place] [address] [phone] Martin Canales Caregiver [address] [facility] [address] [facility] [address] [place] [address] [phone] RICO DELGADILLONY Caregiver [address] [facility] [address] [facility] [address] [place] [address] [phone] Darion Quinones Caregiver [address] [facility] [address] [facility] [address] [place] [address] [phone] Leslie Choudhury Caregiver [address] [facility] [address] [facility] [address] [place] [address] [phone] Juventino Jerome Caregiver [address] [facility] [address] [place] [address] [phone] GHULAM WELDON Caregiver [address] [facility] [address] [facility] [address] [place] [address] [phone] BRYANT GARCIA Caregiver [address] [facility] [address] [facility] [address] [place] [address] [phone] Ivy Santiago Caregiver [address] [facility] [address] [facility] [address] [place] [address] [phone] JENNIFER CHRISTIANSON Emergency Contact Unknown Dasha Christianson Guarantor Unknown [phone] Care Team Providers Care Pot Room Tapper Name Role Phone John Garrett Primary Care Provider Allergies Allergen (clinical drug ingredient) Drug/Non Drug Allergy documented on EMR Reaction Allergy Type Onset Date Status morphine Morphine Sulfate itching Drug Allergy Active hydrochlorothiazide Hydrochlorothiazide rash Drug Aller gy Active Amoxicillin-Pot Clavulanate rash Drug Allergy Active lisinopril lisinopril (uncoded) cough Allergy Active REASON FOR VISIT sinus infection c/o headache, congestion, SOB, x 3 days Didnot test for Covid, Video [phone] Medications Medication SIG (Take, Route, Frequency, Duration) Notes Start Date End Date Status ProAir RespiClick 108 (90 Base) MCG/ACT 2 puffs as needed Inhalation every 6 hrs Active Ibuprofen 600 MG take 1 tablet as needed Orally Three times a day Not-Taking Symbicort 80-4.5 MCG/ACT 2 puffs Inhalat ion Twice a day Not-Taking Albuterol Sulfate HFA 108 (90 Base) MCG/ACT 1 puff as needed Inhalation every 4 hrs 05/01/2023 Not-Takin g Amoxicillin-Pot Clavulanate 875-125 MG 1 tablet Orally every 12 hrs for 10 days 01/12/2025 Active Fluticasone Propionate 50 MCG/ACT SPRAY SPRAY 1 SPRAY INTO EACH NOSTRIL EVERY DAY FOR 30 DAYS for 30 Not-Taking Spironolactone 25 mg TAKE 1 TABLET DAILY WITH FOOD Orally Once a day Not-Taking Problems Problem Type SNOMED Code ICD Code Onset Dates Problem Status W/U Status Risk Notes Problem Sinusitis (85860682) Sinusitis (J32.9) Active confirmed Vital Signs Height 64 in 01/12/2025 weight at home is 170 BP not taken today no temp Encounters Encounter Location Date Provider Diagnosis John Garrett MD [address] [place] [address] [phone] 01/12/2025 John Garrett Sinusitis J32.9 Assessments Encounter Date Diagnosis (ICD Code) Assessment Notes Treatment Notes Treatment Clinical Notes Section Notes 01/12/2025 Sinusitis (ICD-10 - J32.9) patient verbalized understanding of medication and directions for use Plan Of Treatment Medication Medication Name Sig Start Date Stop Date Notes Amoxicillin-Pot Clavulanate 875-125 MG 1 tablet Orally every 12 hrs for 10 days 01/12/2025 Treatment Notes Assessment Notes Sinusitis patient verbalized u nderstanding of medication and directions for use Next Appt Details Provider Name:John wiley, 09/08/2025 07:30:00 AM, [address] [place] [address], Suite [facility], [place], [place], [phone], Provider Name:John Rogers ier, 09/15/2025 01:00:00 PM, [address], [address], [place], [place], [phone], Progress Notes * Dasha CHRISTIANSON KDOB: [birth year] (79 yo F)Acc No.[id number]:01/12/2025 Patient: Dasha FINE Provider: Mode Garrett MD :1945 A ge:79 Y S ex:Female Date:01/12/2025 Address:[address] [place] [address], [facility] Subjective: * Chief Complaints: * s inus infection c/o headache, congestion, SOB, x 3 days Didnot test for CovidVideo [phone] * HPI: S ymptom(s): Telehealth L ocation of provider rendering services: [address], [address], ocation of patient: a t address listed in demographics for today's visit, P atient identification confirmed using: QI Clement ame, T elehealth method: V ideo conference where patient is visible to the provider of care, C onsent: P atient verbally consented to treatment, Patient verbally consented to billing insurance company, Patient informed of any privacy concerns related to method of visit, T otal time spend talking with patient (minutes) 1 7. patient is a 79 yo female video telehea;[facility] visit, being seen as emergency for cough, congestion, sinus congested. * ROS: G eneral/Constitutional: Denies C hills. D enies F atigue. D enies F ever. D enies H eadache. E NT: Patient denies d ecreased sense of smell, any loss of taste, sore throat. A dmits S inus pain. D enies S ore throat. R espiratory: Denies C ough. D enies S hortness of breath at rest. D enies S hortness of breath with exertion. G astrointestinal: Denies D iarrhea. D enies N ausea. M usculoskeletal: Patient denies m uscle aches. P eripheral Vascular: Patient denies r ed and blue toes. * Medical History: * Surgical History: * Hospitalization/Major Diagno stic Procedure: * Medications: T akingProAir RespiClick 108 (90 Base) MCG/ACT Aerosol Powder Breath Activated 2 puffs as needed Inhalation every 6 hrs Taking ProAir RespiClick 108 (90 Base) MCG/ACT Aerosol Powder Breath Activated 2 puffs as needed Inhalation every 6 hrs Not-Taking/PRNSpironolactone 25 mg Tablet TAKE 1 TABLET DAILY WITH FOOD Orally Once a day Fluticasone Propionate 50 MCG/ACT Suspension SPRAY SPRAY 1 SPRAY INTO EACH NOSTRIL EVERY DAY FOR 30 DAYS Albuterol Sulfate HFA 108 (90 Base) MCG/ACT Aerosol Solution 1 puff as needed Inhalation every 4 hrs Ibuprofen 600 MG Tablet take 1 tablet as needed Orally Three times a day Symbicort 80-4.5 MCG/ACT Aerosol 2 puffs Inhalation Twice a day Not-Taking/PRN Spironolactone 25 mg Tablet TAKE 1 TABLET DAILY WITH FOOD Orally Once a day Not-Taking/PRN Fluticasone Propionate 50 MCG/ACT Suspension SPRAY SPRAY 1 SPRAY INTO EACH NOSTRIL EVERY DAY FOR 30 DAYS Not- Taking/PRN Albuterol Sulfate HFA 108 (90 Base) MCG/ACT Aerosol Solution 1 puff as needed Inhalation every 4 hrs Not-Taking/PRN Ibuprofen 600 MG Tablet take 1 tablet as needed Orally Three times a day Not-Taking/PRN Symbicort 80-4.5 MCG/ACT Aerosol 2 puffs Inhalation Twice a day * Allergies: l isinopril: coughHydrochlorothiazide: rashMorphine Sulfate: itchingAmoxicillin- Pot Clavulanate: rashyes[Allergies Verified] Objective: * Vitals: H t: 64. weight at home is 170 BP not taken today no temp. * Examination: G eneral Examination: GENERAL APPEARANCE: w ell developed, well nourished. ? Assessment: * Assessment: 1. S inusitis - J32.9 (Primary) Plan: * Treatment: * Procedure Codes: * * Sign off status: Completed true * Provider: Mode Garrett MD Date: 0 01/12/2025 Generated for Louise tidwell/Rosi/eTransmitting on: 1 07:22 PM EDT History and Physical Notes * HPI (History of Present Illness) Category Sub-Category Detail Notes Category Not es Symptom(s) Telehealth Location of [facility] rendering services:: [address], [address] patient is a 79 yo female video telehea;lth visit, being seen as emergency for cough, congestion, sinus congested. Location of patient:: at address listed in demographics for today's visit Patient identification confirmed using:: Name, Telehealth method:: Video co nference where patient is visible to the provider of care Consent:: Patient verbally c onsented to treatment, Patient verbally consented to billing insurance company, Patient informed of any privacy concerns related to method of visit Total time spend talking with patient (m inutes): 17 Examination Category Sub-Category Detail Notes Category Not es General Examination GENERAL APPEARANCE: well developed , well nourished
--- OUTSIDE RECORDS SUMMARY | 2025-01-15 05:28 | XMS_ITS ---
Author Organization John Garrett MD Address [address] [place] [address] [phone] Support Name Relationship Address Phone John Garrett Caregiver [address] [facility] [address] [place] [address] [phone] Martin Canales Caregiver [address] [facility] [address] [facility] [address] [place] [address] [phone] DIANE DELGADILLO Caregiver [address] [facility] [address] [facility] [address] [place] [address] [phone] Darion Quinones Caregiver [address] [facility] [address] [facility] [address] [place] [address] [phone] Leslie Choudhury Caregiver [address] [facility] [address] [facility] [address] [place] [address] [phone] Juventino Jerome Caregiver [address] [facility] [address] [place] [address] [phone] GHULAM WELDON Caregiver [address] [facility] [address] [facility] [address] [place] [address] [phone] BRYANT GARCIA Caregiver [address] [facility] [address] [place] [address] [phone] Ivy Santiago Caregiver [address] [facility] [address] [facility] [address] [place] [address] [phone] JENNIFER CHRISTIANSON Emergency Contact Unknown Dasha Christianson Guarantor Unknown [phone] Care Team Providers Care Shipping Technician Name Role Phone John Garrett Primary Care Provider REASON FOR VISIT NEEDS DIFFERENT RX Medications Medication SIG (Take, Route, Frequency, Duration) Notes Start Date End Date Status Doxycycline Hyclate 100 MG 1 capsule Ora lly Once a day for 10 day(s) 01/15/2025 Active Encounters Encounter Location Date Provider Diagnosis John Garrett MD [address] [place] [address] [address] [place], [place] [phone] 01/15/2025 John Garrett Plan Of Treatment Medication Medication Name Sig Start Date Stop Date Notes Doxycycline Hyclate 100 MG 1 capsule Ora lly Once a day for 10 day(s) 01/15/2025 Next Appt Details Provider Name:John Rogers ieleslie, 09/08/2025 07:30:00 AM, [address] [place] [address], [address], [place], [place], [phone], Provider Name:John wiley, 09/15/2025 01:00:00 PM, [address] [place] [address], [address], [place], [place], [phone], Progress Notes * GLICA, [place] KDOB: [birth year] (79 yo F)Acc No.[id number]:01/15/2025 Patient: Mode LICCesario [place] Clint :1945 A ge:79 Y S ex:Female Address:[address] [place] [address], [place] [address] * Refills Start Doxycycline Hyclate Capsule, 100 MG, Orally, 10, 1 capsule, Once a day, 10 day(s) * true * Date: Generated for Louise tidwell/Rosi/Yadiraitting on: 07:24 PM EDT
--- OUTSIDE RECORDS SUMMARY | 2025-02-03 10:15 | XMS_ITS ---
Author Organization John Garrett MD Address [address] [place] [address] [phone] Support Name Relationship Address Phone John Garrett Caregiver [address] [facility] [address] [facility] [address] [place] [address] [phone] Martin Canales Caregiver [address] [facility] [address] [facility] [address] [place] [address] [phone] RICO DELGADILLONY Caregiver [address] [facility] [address] [facility] [address] [place] [address] [phone] Darion Quinones Caregiver [address] [facility] [address] [address] [place] [address] [phone] Leslie Choudhury Caregiver [address] [facility] [address] [facility] [address] [place] [address] [phone] Juventino Jerome Caregiver [address] [facility] [address] [address] [place] [address] [phone] GHULAM WELDON Caregiver [address] [facility] [address] [facility] [address] [place] [address] [phone] BRYANT GARCIA Caregiver [address] [facility] [address] [address] [place] [address] [phone] Ivy Santiago Caregiver [address] [facility] [address] [facility] [address] [place] [address] [phone] JENNIFER CHRISTIANSON Emergency Contact Unknown Dasha Christianson Guarantor Unknown [phone] Care Team Providers Care Police Communications Operator Name Role Phone John Garrett Primary Care Provider Allergies Allergen (clinical drug ingredient) Drug/Non Drug Allergy documented on EMR Reaction Allergy Type Onset Date Status morphine Morphine Sulfate itching Drug Allergy Active hydrochlorothiazide Hydrochlorothiazide rash Drug Aller gy Active Amoxicillin-Pot Clavulanate rash Drug Allergy Active lisinopril lisinopril (uncoded) cough Allergy Active REASON FOR VISIT Sinus very congested no fever x 1 week, Video [phone] Medications Medication SIG (Take, Route, Frequency, Duration) Notes Start Date End Date Status Spironolactone 25 mg TAKE 1 TABLET DAILY WITH FOOD Orally Once a day Not-Taking Fluticasone Propionate 50 MCG/ACT SPRAY SPRAY 1 SPRAY INTO EACH NOSTRIL EVERY DAY FOR 30 DAYS for 30 Not-Taking Albuterol Sulfate HFA 108 (90 Base) MCG/ACT 1 puff as needed Inhalation every 4 hrs 05/01/2023 Not-Takin g Doxycycline Hyclate 100 MG 1 capsule Ora lly Once a day for 14 days 02/03/2025 Active Ibuprofen 600 MG take 1 tablet as needed Orally Three times a day Not-Taking Symbicort 80-4.5 MCG/ACT 2 puffs Inhalat ion Twice a day Not-Taking ProAir RespiClick 108 (90 Base) MCG/ACT 2 puffs as needed Inhalation every 6 hrs Active Vital Signs Height 64 in 02/03/2025 Weight 168 lbs 02/03/2025 BMI 28.83 kg/m2 02/03/2025 weight at home is 168 BP not taken at home today no temp Encounters Encounter Location Date Provider Diagnosis John Garrett MD [address] [place] [address] [place] [address] [phone] 02/03/2025 John Garrett Sinusitis J32.9 Assessments Encounter Date Diagnosis (ICD Code) Assessment Notes Treatment Notes Treatment Clinical Notes Section Notes 02/03/2025 Sinusitis (ICD-10 - J32.9) patient verbalized understnading of medication and directions for use Plan Of Treatment Medication Medication Name Sig Start Date Stop Date Notes Doxycycline Hyclate 100 MG 1 capsule Ora lly Once a day for 14 days 02/03/2025 Treatment Notes Assessment Notes Sinusitis patient verbalized u nderstnading of medication and directions for use Next Appt Details Provider Name:John wiley, 09/08/2025 07:30:00 AM, [address] [place] [address], Suite [facility], [place], [place], [phone], Provider Name:John wiley, 09/15/2025 01:00:00 PM, [address] [facility] [address], [address], [place], [place], [phone], Progress Notes * Dasha CHRISTIANSON KDOB: [birth year] (79 yo F)Acc No.[id number]:02/03/2025 Patient: Dasha FINE Provider: Mode Garrett MD :1945 A ge:79 Y S ex:Female Date:02/03/2025 Address:[address] [place] [address], [place], [place] Subjective: * Chief Complaints: * S inus very congested no fever x 1 weekVideo [phone] * HPI: S ymptom(s): Telehealth L ocation of provider rendering services: [address], [address], L ocation of patient: a t address listed [...] 7. patient is a 79 yo female here with complaint of sinus congestion/ had sinus infection last week treated and returned. was good for a few days. * ROS: G eneral/Constitutional: Denies C hills. A dmits F atigue. D enies F ever. D enies H eadache. E NT: Admits S inus pain. D enies S ore throat. ? R espiratory: Denies C ough. D enies S hortness of breath at rest. D enies S hortness of breath with exertion. G astrointestinal: Denies D iarrhea. D enies N ausea. * Medical History: * Surgical History: * [...] Tablet 1 tablet Orally every 12 hrs Doxycycline Hyclate 100 MG Capsule 1 capsule Orally Once a day Medication List reviewed and reconciled with the patientDiscontinued Amoxicillin-Pot Clavulanate 875-125 MG Tablet 1 tablet Orally every 12 hrs Discontinued Doxycycline Hyclate 100 MG Capsule 1 capsule Orally Once a day Medication List reviewed and reconciled with the patient * Allergies: l isinopril: coughHydrochlorothiazide: rashMorphine Sulfate: itchingAmoxicillin- Pot Clavulanate: rashyes[Allergies Verified] Objective: * Vitals: H t: 64, Wt: 168, BMI:28.83, Wt-k.2. weight at home is 168 BP not taken at home today no temp. * Examination: G eneral Examination: GENERAL APPEARANCE: a lert, well hydrated, in no distress sounding nasally congested. Assessment: * Assessment: 1. S inusitis - J32.9 (Primary) Plan: * Treatment: * Procedure Codes: * * Sign off status: Completed true * Provider: Mode Garrett MD Date: 0 02/03/2025 Generated for Louise tidwell/Rosi/Adriane on: 1 07:25 PM EDT History and Physical Notes * HPI (History of Present Illness) Category Sub-Category Detail Notes Category Not es Symptom(s) Telehealth Location of [facility] ider rendering services:: [address], [address] patient is a 79 yo female here with complaint of sinus congestion/ had sinus infection last week treated and returned. was good for a few days. Location of patient:: at address listed in [...] alert, w ell hydrated, in no distress sounding nasally congested
--- OUTSIDE RECORDS SUMMARY | 2025-02-16 07:00 | XMS_ITS ---
Author Organization John Garrett MD Address [address] [place] [address] [phone] Support Name Relationship Address Phone John Garrett Caregiver [facility] [address] [facility] [address] [place] [address] [phone] Martin Canales Caregiver [facility] [address] [address] [place] [address] [phone] RICO DELGADILLONY Caregiver [facility] [address] [place] [address] [phone] Darion Quinones Caregiver [facility] [address] [place] [address] [phone] Leslie Choudhury Caregiver [facility] [address] [place] [address] [phone] Juventino Jerome Caregiver [facility] [address] [facility] [address] [place] [address] [phone] GHULAM WELDON Caregiver [facility] [address] [place] [address] [phone] BRYANT GARCIA Caregiver [facility] [address] [place] [address] [phone] Ivy Santiago Caregiver [facility] [address] [address] [place] [address] [phone] JENNIFER CHRISTIANSON Emergency Contact Unknown Dasha Christianson Guarantor Unknown [phone] Care Team Providers Care Machine Operator Name Role Phone John Garrett Primary Care Provider Allergies Allergen (clinical drug ingredient) Drug/Non Drug Allergy documented on EMR Reaction Allergy Type Onset Date Status morphine Morphine Sulfate itching Drug Allergy Active hydrochlorothiazide Hydrochlorothiazide rash Drug Aller gy Active Amoxicillin-Pot Clavulanate rash Drug Allergy Active lisinopril lisinopril (uncoded) cough Allergy Active REASON FOR VISIT Sinusitis x 2 weeks Medications Medication SIG (Take, Route, Frequency, Duration) Notes Start Date End Date Status predniSONE 10 MG 1 tablet with food o r milk Orally 4 tabs for 3 days,3tabs for 3 days, 2 tabs for 3 days, and 1 tab for 3 days for 14 days 02/16/2025 Active Symbicort 80-4.5 MCG/ACT 2 puffs Inhalat ion Twice a day Not-Taking ProAir RespiClick 108 (90 Base) MCG/ACT 2 puffs as needed Inhalation every 6 hrs for 30 days Active Amoxicillin-Pot Clavulanate 875-125 MG 1 tablet Orally every 12 hrs for 3 day(s) 02/16/2025 Active Ibuprofen 600 MG take 1 tablet as needed Orally Three times a day Not-Taking Fluticasone Propionate 50 MCG/ACT SPRAY SPRAY 1 SPRAY INTO EACH NOSTRIL EVERY DAY FOR 30 DAYS for 30 Not-Taking Albuterol Sulfate HFA 108 (90 Base) MCG/ACT 1 puff as needed Inhalation every 4 hrs 05/01/2023 Not-Takin g Spironolactone 25 mg TAKE 1 TABLET DAILY WITH FOOD Orally Once a day Not-Taking Vital Signs Blood pressure systolic 150 mm Hg 02/17/20 25 Blood pressure diastolic 78 mm Hg 025 Height 64 in 02/16/2025 Weight 168 lbs 02/16/2025 BMI 28.83 kg/m2 02/16/2025 Encounters Encounter Location Date Provider Diagnosis John Garrett MD [address] [place] [address] [place] [address] [phone] 02/16/2025 John Garrett Mild intermittent asthma without complication J45.20 and Sinusitis J32.9 Assessments Encounter Date Diagnosis (ICD Code) Assessment Notes Treatment Notes Treatment Clinical Notes Section Notes 02/16/2025 Mild intermittent asthma without complication (ICD-10 - J45.20) 02/16/2025 Sinusitis (ICD-10 - J32.9) Plan Of Treatment Medication Medication Name Sig Start Date Stop Date Notes predniSONE 10 MG 1 tablet with food o r milk Orally 4 tabs for 3 days,3tabs for 3 days, 2 tabs for 3 days, and 1 tab for 3 days for 14 days 02/16/2025 ProAir RespiClick 108 (90 Base) MCG/ACT 2 puffs as needed Inhalation every 6 hrs for 30 days Amoxicillin-Pot Clavulanate 875-125 MG 1 tablet Orally every 12 hrs for 3 day(s) 02/16/2025 Next Appt Details Provider Name:John perezleslie, 09/08/2025 07:30:00 AM, [address] [facility], [address], [place], [place], [phone], Provider Name:John Rogers chrisr, 09/15/2025 01:00:00 PM, [address] [facility], [address], [place], [place], [phone], Progress Notes * [place] KDOB: [birth year] (79 yo F)Acc No.[id number]:02/16/2025 Progress Notes Patient: Dasha FINE Provider: Mode Garrett MD :1945 A ge:79 Y S ex:Female Date:02/16/2025 Address:[address] [place] [address], [facility] Subjective: * Chief Complaints: * S inusitis x 2 weeks * HPI: S ymptom(s): patient is a 79 yo female with complaint of sinusitis/ still compalining of sinus congestion and green phlegm. * ROS: G eneral/Constitutional: Denies C hills. [...] Aerosol 2 puffs Inhalation Twice a day DiscontinuedDoxycycline Hyclate 100 MG Capsule 1 capsule Orally Once a day Discontinued Doxycycline Hyclate 100 MG Capsule 1 capsule Orally Once a day * Allergies: l isinopril: coughHydrochlorothiazide: rashMorphine Sulfate: itchingAmoxicillin- Pot Clavulanate: rashyes[Allergies Verified] Objective: * Vitals: H t: 64, Wt: 168, BMI:28.83, BP:150/78, Repeat BP:120/78, Wt-k.2. * Examination: G eneral Examination: GENERAL APPEARANCE: a lert, well hydrated, in no distress.? HEAD: n ormocephalic. NOSE: t radha to palpation. SKIN: g ood turgor. HEART: r egular rate and rhythm, no murmurs, rubs, gallops.? LUNGS: n o wheezes, rales, rhonchi, good air movement, clear to auscultation bilaterally. Assessment: * Assessment: 1. S inusitis - J32.9 (Primary) 2 . M ild intermittent asthma without complication - J45.20 Plan: * Treatment: 2. M ild intermittent asthma without complication Refill ProAir RespiClick Aerosol Powder Breath Activated, 108 (90 Base) MCG/ACT, 2 puffs as needed, Inhalation, every 6 hrs, 30 days, 1. * Procedure Codes: * * Sign off status: Completed true * Provider: Mode Garrett MD Date: 0 02/16/2025 Generated for Elisabethi diann/Rosi/eTransmitting on: 1 07:22 PM EDT History and Physical Notes * HPI (History of Present Illness) Category Sub-Category Detail Notes Category Not es Symptom(s) patient is a 79 yo female with complaint of sinusitis/ still compalining of sinus congestion and green phlegm Examination Category Sub-Category Detail Notes Category Not es General Examination GENERAL APPEARANCE: alert, w ell hydrated, in no distress HEAD: normocephalic NOSE: tender to palpation HEART: regular rate and rhy thm, no murmurs, rubs, gallops LUNGS: no wheezes, rales, r honchi, good air movement, clear to auscultation bilaterally SKIN: good turgor
--- OUTSIDE RECORDS SUMMARY | 2025-03-05 07:01 | XMS_ITS ---
Author Organization John Garrett MD Address [address] [place] [address] [phone] Support Name Relationship Address Phone John Garrett Caregiver [address] [facility] [address] [address] [place] [address] [phone] Martin Canales Caregiver [address] [facility] [address] [place] [address] [phone] DIANE DELGADILLO Caregiver [facility] [address] [place] [address] [phone] Darion Quinones Caregiver 10 [facility] [address] [place] [address] [phone] Leslie Choudhury Caregiver 10 [facility] [address] [place] [address] [phone] Juventino Jerome Caregiver 10 [facility] [address] [place] [address] [phone] GHULAM WELDON Caregiver [address] [facility] [address] [place] [address] [phone] BRYANT GARCIA Caregiver 10 [facility] [address] [place] [address] [phone] Ivy Santiago Caregiver 10 [facility] [address] [place] [address] [phone] JENNIFER CHRISTIANSON Emergency Contact Unknown Dasha Christianson Guarantor Unknown [phone] Care Team Providers Care Campus Chaplain Name Role Phone John Garrett Primary Care Provider REASON FOR VISIT RX NOT COVERED Medications Medication SIG (Take, Route, Frequency, Duration) Notes Start Date End Date Status Ventolin HFA 108 (90 Base) MCG/ACT 1 puff as needed Inhalation every 4 hrs for 30 days 03/05/2025 Active Encounters Encounter Location Date Provider Diagnosis John Garrett MD 10 [facility] [address] [place], [place] [phone] 03/05/2025 John Garrett Plan Of Treatment Medication Medication Name Sig Start Date Stop Date Notes Ventolin HFA 108 (90 Base) MCG/ACT 1 puff as needed Inhalation every 4 hrs for 30 days 03/05/2025 Next Appt Details Provider Name:John wiley, 09/08/2025 07:30:00 AM, [address] [place] [address], [address], [place], [place], [phone], Provider Name:John wiley, 09/15/2025 01:00:00 PM, [address] [place] [address], [address], [place], [place], [phone], Progress Notes * GLICA, [place] KDOB: [birth year] (79 yo F)Acc No.[id number]:03/05/2025 Patient: Mode LICA [place] Clint :1945 A ge:79 Y S ex:Female Address:[address] [place] [address], [place] [address] * Refills Start Ventolin HFA Aerosol Solution, 108 (90 Base) MCG/ACT, Inhalation, 1, 1 puff as needed, every 4 hrs, 30 days, Refills=5 * true * Date: Generated for Louise tidwell/Rosi/eTransmitting on: 07:23 PM EDT
--- OUTSIDE RECORDS SUMMARY | 2025-03-20 06:45 | XMS_ITS ---
Author Organization John Garrett MD Address [address] [place] [address] [phone] Support Name Relationship Address Phone John Garrett Caregiver 10 [facility] [address] [place] [address] [phone] Martin Canales Caregiver 10 [facility] [address] [address] [place] [address] [phone] RICO DELGADILLONY Caregiver 10 [facility] [address] [address] [place] [address] [phone] Darion Quinones Caregiver 10 [facility] [address] [place] [address] [phone] Leslie Choudhury Caregiver 10 [facility] [address] [address] [place] [address] [phone] Juventino Jerome Caregiver 10 [facility] [address] [place] [address] [phone] GHULAM WELDON Caregiver 10 [facility] [address] [facility] [address] [place] [address] [phone] BRYANT GARCIA Caregiver 10 [facility] [address] [address] [place] [address] [phone] Ivy Santiago Caregiver 10 [facility] [address] [place] [address] [phone] JENNIFER CHRISTIANSON Emergency Contact Unknown [phone] Dasha Christianson Guarantor Unknown [phone] Care Team Providers Care Washing [employer] Supervisor Name Role Phone John Garrett Primary Care Provider Allergies Allergen (clinical drug ingredient) Drug/Non Drug Allergy documented on EMR Reaction Allergy Type Onset Date Status morphine Morphine Sulfate itching Drug Allergy Active hydrochlorothiazide Hydrochlorothiazide rash Drug Aller gy Active Amoxicillin-Pot Clavulanate rash Drug Allergy Active lisinopril lisinopril (uncoded) cough Allergy Active REASON FOR VISIT 6 MO F/U Medications Medication SIG (Take, Route, Frequency, Duration) Notes Start Date End Date Status ProAir RespiClick 108 (90 Base) MCG/ACT 2 puffs as needed Inhalation every 6 hrs for 30 days Not-Taking Symbicort 80-4.5 MCG/ACT 2 puffs Inhalat ion Twice a day Not-Taking Fluticasone Propionate 50 MCG/ACT SPRAY SPRAY 1 SPRAY INTO EACH NOSTRIL EVERY DAY FOR 30 DAYS for 30 Not-Taking Albuterol Sulfate HFA 108 (90 Base) MCG/ACT 1 puff as needed Inhalation every 4 hrs 05/01/2023 Not-Takin g Spironolactone 25 mg TAKE 1 TABLET DAILY WITH FOOD Orally Once a day Not-Taking Ventolin HFA 108 (90 Base) MCG/ACT 1 puff as needed Inhalation every 4 hrs for 30 days 03/05/2025 Active Vital Signs Blood pressure systolic 158 mm Hg 03/20/20 25 Blood pressure diastolic 76 mm Hg 025 Height 64 in 03/20/2025 Weight 172 lbs 03/20/2025 BMI 29.52 kg/m2 03/20/2025 weight is up 4 pounds since 02-16-25 Encounters Encounter Location Date Provider Diagnosis John Garrett MD [address] [place] [address] [place] [phone] 03/20/2025 John Garrett Eczema L30.9 and Essential hypertension I10 Assessments Encounter Date Diagnosis (ICD Code) Assessment Notes Treatment Notes Treatment Clinical Notes Section Notes 03/20/2025 Eczema (ICD-10 - L30.9) to use her triamcinolone 03/20/2025 Essential hypertension (ICD-10 - I10) doning well on meds, will cntinue curent regiment Plan Of Treatment Treatment Notes Assessment Notes Eczema to use her triamcino lone Essential hypertension doning well on me ds, will cntinue curent regiment Next Appt Details Provider Name:John wiley, 09/08/2025 07:30:00 AM, [address] [place] [address], [address], [place], [place], [phone], Provider Name:John wiley, 09/15/2025 01:00:00 PM, [address] [facility] [address], [address], [place], [place], [phone], Progress Notes * Dasha CHRISTIANSON KDOB: [birth year] (79 yo F)Acc No.[id number]:03/20/2025 Progress Notes Patient: Dasha FINE Provider: Mode Garrett MD :1945 A ge:79 Y S ex:Female Date:03/20/2025 Address:[address] [place] [address], [id number] Subjective: * Chief Complaints: * 6 MO F/U * HPI: S ymptom(s): patient is a 79 yo female here for 6 month follow up visit/ sinuses finally better. fingers are all peeling. started on one finger. * ROS: G eneral/Constitutional: Denies C hills. D enies F atigue. D enies F ever. D enies H eadache. E NT: Denies S ore throat. R espiratory: Denies C ough. D enies S hortness of breath at rest. D enies S hortness of breath with exertion. G astrointestinal: Denies D iarrhea. D enies N ausea. * Medical History: * Surgical History: * Hospitalization/Major Diagno stic Procedure: * Medications: T akingVentolin HFA 108 (90 Base) MCG/ACT Aerosol Solution 1 puff as needed Inhalation every 4 hrs Taking Ventolin HFA 108 (90 Base) MCG/ACT Aerosol Solution 1 puff as needed Inhalation every 4 hrs Not-Taking/PRNProAir RespiClick 108 (90 Base) MCG/ACT Aerosol Powder [...] puff as needed Inhalation every 4 hrs Symbicort 80-4.5 MCG/ACT Aerosol 2 puffs Inhalation Twice a day Not-Taking/PRN ProAir RespiClick 108 (90 Base) MCG/ACT Aerosol Powder Breath Activated 2 puffs as needed Inhalation every 6 hrs Not-Taking/PRN Spironolactone 25 mg Tablet TAKE 1 TABLET DAILY WITH FOOD Orally Once a day Not-Taking/PRN Fluticasone Propionate 50 MCG/ACT Suspension SPRAY SPRAY 1 SPRAY INTO EACH NOSTRIL EVERY DAY FOR 30 DAYS Not-Taking/PRN Albuterol Sulfate HFA 108 (90 Base) MCG/ACT Aerosol Solution 1 puff as needed Inhalation every 4 hrs Not-Taking/PRN Symbicort 80-4.5 MCG/ACT Aerosol 2 puffs Inhalation Twice a day DiscontinuedAmoxicillin-Pot Clavulanate 875-125 MG Tablet 1 tablet Orally every 12 hrs predniSONE 10 MG Tablet 1 tablet with food or milk Orally 4 tabs for 3 days,3tabs for 3 days, 2 tabs for 3 days, and 1 tab for 3 days Medication List reviewed and reconciled with the patientDiscontinued Amoxicillin-Pot Clavulanate 875-125 MG Tablet 1 tablet Orally every 12 hrs Discontinued predniSONE 10 MG Tablet 1 tablet with food or milk Orally 4 tabs for 3 days,3tabs for 3 days, 2 tabs for 3 days, and 1 tab for 3 days Medication List reviewed and reconciled with the patient * Allergies: l isinopril: coughHydrochlorothiazide: rashMorphine Sulfate: itchingAmoxicillin- Pot Clavulanate: rashyes[Allergies Verified] Objective: * Vitals: H t: 64, Wt: 172, BMI:29.52, BP:158/76, Repeat BP:120/78, Wt-k.02. weight is up 4 pounds since 02-16-25. * Examination: G eneral Examination: GENERAL APPEARANCE: a lert, well hydrated, in no distress.? HEAD: n ormocephalic. SKIN: g ood turgor, abnormal with scaling skin on both hands.. HEART: r egular rate and rhythm, no murmurs, rubs, gallops.? LUNGS: n o wheezes, rales, rhonchi, good air movement, clear to auscultation bilaterally. Assessment: * Assessment: 1. E czema - L30.9 (Primary) 2 . E ssential hypertension - I10 ? Plan: * Treatment: 2. E ssential hypertension Notes: doning well on meds, will cntinue curent regiment * Procedure Codes: * * Sign off status: Completed true * Provider: Mode Garrett MD Date: 0 03/20/2025 Generated for Printi ng/Faannelieseg/eTransmitting on: 1 07:25 PM EDT History and Physical Notes * HPI (History of Present Illness) Category Sub-Category Detail Notes Category Not es Symptom(s) patient is a 79 yo female here for 6 month follow up visit/ sinuses finally better. fingers are all peeling. started on one finger Examination Category Sub-Category Detail Notes Category Not es General Examination GENERAL APPEARANCE: alert, w ell hydrated, in no distress HEAD: normocephalic HEART: regular rate and rhy thm, no murmurs, rubs, gallops LUNGS: no wheezes, rales, r honchi, good air movement, clear to auscultation bilaterally SKIN: good turgor, abnorma l with scaling skin on both hands.
--- OUTSIDE RECORDS SUMMARY | 2025-04-24 07:45 | XMS_ITS ---
Author Organization John Garrett MD Address [address] [place] [address] [phone] Support Name Relationship Address Phone John Garrett Caregiver 10 [facility] [address] [place] [address] [phone] Martin Canales Caregiver 10 [facility] [address] [address] [place] [address] [phone] RICO DELGADILLONY Caregiver 10 [facility] [address] [address] [place] [address] [phone] Darion Quinones Caregiver 10 [facility] [address] [address] [place] [address] [phone] Leslie Choudhury Caregiver 10 [facility] [address] [address] [place] [address] [phone] Juventino Jerome Caregiver 10 [facility] [address] [place] [address] [phone] GHULAM WELDON Caregiver 10 [facility] [address] [address] [place] [address] [phone] BRYANT GARCIA Caregiver 10 [facility] [address] [facility] [address] [place] [address] [phone] Ivy Santiago Caregiver 10 [facility] [address] [place] [address] [phone] JENNIFER CHRISTIANSON Emergency Contact Unknown [phone] Dasha Christianson Guarantor Unknown [phone] Care Team Providers Care Group Exercise Class Instructor Name Role Phone John Garrett Primary Care Provider [phone] Allergies Allergen (clinical drug ingredient) Drug/Non Drug Allergy documented on EMR Reaction Allergy Type Onset Date Status morphine Morphine Sulfate itching Drug Allergy Active hydrochlorothiazide Hydrochlorothiazide rash Drug Aller gy Active Amoxicillin-Pot Clavulanate rash Drug Allergy Active lisinopril lisinopril (uncoded) cough Allergy Active REASON FOR VISIT Sinus x 3days, Video [phone] Medications Medication SIG (Take, Route, Frequency, Duration) Notes Start Date End Date Status Symbicort 80-4.5 MCG/ACT 2 puffs Inhalat ion Twice a day Not-Taking Ventolin HFA 108 (90 Base) MCG/ACT 1 puff as needed Inhalation every 4 hrs for 30 days 03/05/2025 Active ProAir RespiClick 108 (90 Base) MCG/ACT 2 puffs as needed Inhalation every 6 hrs for 30 days Not-Taking Amoxicillin-Pot Clavulanate 875-125 MG 1 tablet Orally every 12 hrs for 10 days 04/24/2025 Active Albuterol Sulfate HFA 108 (90 Base) MCG/ACT 1 puff as needed Inhalation every 4 hrs 05/01/2023 Not-Takin g Spironolactone 25 mg TAKE 1 TABLET DAILY WITH FOOD Orally Once a day Not-Taking Fluticasone Propionate 50 MCG/ACT SPRAY SPRAY 1 SPRAY INTO EACH NOSTRIL EVERY DAY FOR 30 DAYS for 30 Not-Taking Vital Signs Height 64 in 04/24/2025 Weight 170 lbs 04/24/2025 BMI 29.18 kg/m2 04/24/2025 weight at home is 170 BP not taken no temp Encounters Encounter Location Date Provider Diagnosis John Garrett MD [address] [place] [address] Drive [address] [place] [phone] 04/24/2025 John Garrett Sinusitis J32.9 Assessments Encounter Date Diagnosis (ICD Code) Assessment Notes Treatment Notes Treatment Clinical Notes Section Notes 04/24/2025 Sinusitis (ICD-10 - J32.9) patient verbalized understanding of medication and directions for use Plan Of Treatment Medication Medication Name Sig Start Date Stop Date Notes Amoxicillin-Pot Clavulanate 875-125 MG 1 tablet Orally every 12 hrs for 10 days 04/24/2025 Treatment Notes Assessment Notes Sinusitis patient verbalized u nderstanding of medication and directions for use Next Appt Details Provider Name:John wiley, 09/08/2025 07:30:00 AM, [address] [facility] [address], [address], [place], [place], [phone], Provider Name:John wiley, 09/15/2025 01:00:00 PM, [address], [address], [place], [place], [phone], Progress Notes * Dasha CHRISTIANSON KDOB: [birth year] (79 yo F)Acc No.[id number]:04/24/2025 Patient: Dasha FINE Provider: Mode Garrett MD :1945 A ge:79 Y S ex:Female Date:04/24/2025 Address:[address] [place] [address], [facility] Subjective: * Chief Complaints: * S inus x 3daysVideo [phone] * HPI: S ymptom(s): Telehealth L ocation of provider rendering services: [address], [address], L ocation of patient: a t address listed in demographics for today's visit, P atient identification confirmed using: QI Clement ame, T elehealth method: T elephone only. Patient not visible to care provider., C onsent: P atient verbally consented to treatment, Patient verbally consented to billing insurance company, Patient informed of any privacy concerns related to method of visit, T otal time spend talking with patient (minutes) 1 5. patient is a 79 yo female audio telehealth visit, having green phlegm for a few days. usually treated with augmentin. * ROS: E NT: Admits S inus pain. * Medical History: * Surgical History: * [...] Aerosol 2 puffs Inhalation Twice a day Medication List reviewed and reconciled with the patientNot-Taking/PRN ProAir RespiClick 108 (90 Base) MCG/ACT Aerosol [...] Aerosol 2 puffs Inhalation Twice a day Medication List reviewed and reconciled with the patient * Allergies: l isinopril: coughHydrochlorothiazide: rashMorphine Sulfate: itchingAmoxicillin- Pot Clavulanate: rashyes[Allergies Verified] Objective: * Vitals: H t: 64, Wt: 170, BMI:29.18, Wt-k.11. weight at home is 170 BP not taken no temp. Assessment: * Assessment: 1. S inmervat - J32.9 (Primary) Plan: * Treatment: * Procedure Codes: * * Sign off status: Completed true * Provider: Mdoe Garrett MD Date: 0 04/24/2025 Generated for Louise tidwell/Rosi/Yadiraitting on: 07:26 PM EDT History and Physical Notes * HPI (History of Present Illness) Category Sub-Category Detail Notes Category Not es Symptom(s) Telehealth Location of [facility] rendering services:: [address], [address] patient is a 79 yo female audio telehealth visit, having green phlegm for a few days. usually treated with augmentin Location of patient:: at address listed in demographics for today's visit Patient identification confirmed using:: Name, Telehealth method:: Telephone only. Rosio ent not visible to care provider. Consent:: Patient verbally c onsented to treatment, Patient verbally consented to billing insurance company, Patient informed of any privacy concerns related to method of visit Total time spend talking with patient (m inutes): 15
--- OUTSIDE RECORDS SUMMARY | 2025-05-11 11:30 | XMS_ITS ---
Author Organization John Garrett MD Address [address] [place] [address] [phone] Support Name Relationship Address Phone John Garrett Caregiver 10 [facility] [address] [place] [address] [phone] Martin Canales Caregiver 10 [facility] [address] [place] [address] [phone] RICO DELGADILLONY Caregiver 10 [facility] [address] [place] [address] [phone] Darion Quinones Caregiver 10 [facility] [address] [place] [address] [phone] Leslie Choudhury Caregiver 10 [facility] [address] [place] [address] [phone] Juventino Jerome Caregiver 10 [facility] [address] [place] [address] [phone] GHULAM WELDON Caregiver 10 [facility] [address] [place] [address] [phone] BRYANT GARCIA Caregiver 10 [facility] [address] [facility] [address] [place] [address] [phone] Ivy Santiago Caregiver 10 [facility] [address] [place] [address] [phone] JENNIFER CHRISTIANSON Emergency Contact Unknown Dasha Christianson Guarantor Unknown [phone] Care Team Providers Care [employer] Intelligence Name Role Phone John Garrett Primary Care Provider Allergies Allergen (clinical drug ingredient) Drug/Non Drug Allergy documented on EMR Reaction Allergy Type Onset Date Status morphine Morphine Sulfate itching Drug Allergy Active hydrochlorothiazide Hydrochlorothiazide rash Drug Aller gy Active Amoxicillin-Pot Clavulanate rash Drug Allergy Active lisinopril lisinopril (uncoded) cough Allergy Active REASON FOR VISIT chest congestion cough Testes for Covid 2 days ago negative, Video [phone] Medications Medication SIG (Take, Route, Frequency, Duration) Notes Start Date End Date Status ProAir RespiClick 108 (90 Base) MCG/ACT 2 puffs as needed Inhalation every 6 hrs for 30 days Not-Taking Spironolactone 25 mg TAKE 1 TABLET DAILY WITH FOOD Orally Once a day Not-Taking Ventolin HFA 108 (90 Base) MCG/ACT 1 puff as needed Inhalation every 4 hrs for 30 days 03/05/2025 Active Symbicort 80-4.5 MCG/ACT 2 puffs Inhalat ion Twice a day Not-Taking Fluticasone Propionate 50 MCG/ACT SPRAY SPRAY 1 SPRAY INTO EACH NOSTRIL EVERY DAY FOR 30 DAYS for 30 Not-Taking predniSONE 10 MG take as directed Orally 4 tabs for 3 days,3tabs for 3 days, 2 tabs for 3 days, and 1 tab for 3 days for 14 days 05/11/2025 Active Albuterol Sulfate HFA 108 (90 Base) MCG/ACT 1 puff as needed Inhalation every 4 hrs 05/01/2023 Not-Takin g Encounters Encounter Location Date Provider Diagnosis John Garrett MD [address] [place] [address] [place] [address] [phone] 05/11/2025 John Garrett Sinus congestion R09.81 Assessments Encounter Date Diagnosis (ICD Code) Assessment Notes Treatment Notes Treatment Clinical Notes Section Notes 05/11/2025 Sinus congestion (ICD-10 - R09.81) patient verbalized understanding of medicatio and directions for use Plan Of Treatment Medication Medication Name Sig Start Date Stop Date Notes predniSONE 10 MG take as directed Ora lly 4 tabs for 3 days,3tabs for 3 days, 2 tabs for 3 days, and 1 tab for 3 days for 14 days 05/11/2025 Treatment Notes Assessment Notes Sinus congestion patient verbalized u nderstanding of medicatio and directions for use Next Appt Details Provider Name:John wiley, 09/08/2025 07:30:00 AM, [address] [place] [address], [address], [place], [place], [phone], Provider Name:John wiley, 09/15/2025 01:00:00 PM, [address], [address], [place], [place], [phone], Progress Notes * Dasha CHRISTIANSON KDOB: [birth year] (79 yo F)Acc No.[id number]:05/11/2025 Patient: Dasha FINE Provider: Mode Garrett MD :1945 A ge:79 Y S ex:Female Date:05/11/2025 Address:[address] [place] [address], [facility] Subjective: * Chief Complaints: * c hest congestion cough Testes for Covid 2 days ago negativeVideo [phone] * HPI: S ymptom(s): patient is a 79 yo female video telehealth visit, has head feels poorly. coughing a little. head feels huge. Telehealth L ocation of provider rendering services: [...] time spend talking with patient (minutes) 1 8. * ROS: G eneral/Constitutional: Denies C hills. A dmits F atigue. D enies F ever. A dmits H eadache. E NT: Denies S ore throat. R espiratory: Admits C ough. D enies S hortness of breath at rest. D enies S hortness of breath with exertion. A dmits W heezing. G astrointestinal: Denies D iarrhea. D enies [...] Pot Clavulanate: rashyes[Allergies Verified] Objective: * Vitals: * Examination: G eneral Examination: GENERAL APPEARANCE: a lert, well hydrated, in no distress.? Assessment: * Assessment: 1. S inus congestion - R09.81 (Primary) Plan: * Treatment: * Procedure Codes: * * Sign off status: Completed true * Provider: Mode Garrett MD Date: Generated for Louise tidwell/Rosi/eTransmitting on: 1 07:23 PM EDT History and Physical Notes * HPI (History of Present Illness) Category Sub-Category Detail Notes Category Not es Symptom(s) Telehealth Location of [facility] ider rendering services:: [address], [address] Location of patient:: at address listed in demographics for today's visit Patient identification confirmed using:: Name, Telehealth method:: Video co nference where patient is visible to the provider of care Consent:: Patient verbally c onsented to treatment, Patient verbally consented to billing insurance company, Patient informed of any privacy concerns related to method of visit Total time spend talking with patient (m inutes): 18 Examination Category Sub-Category Detail Notes Category Not es General Examination GENERAL APPEARANCE: alert, w ell hydrated, in no distress
--- OUTSIDE RECORDS SUMMARY | 2025-06-03 19:23 | XMS_ITS | Patient Health Record ---
Author Organization John Garrett MD Address [address] [place] [address] [phone] Support Name Relationship Address Phone John Garrett Caregiver [address] [facility] [address] [facility] [address] [place] [address] [phone] Martin Canales Caregiver [address] [facility] [address] [place] [address] [phone] RICO DELGADILLONY Caregiver [address] [facility] [address] [place] [address] [phone] Darion Quinones Caregiver [address] [facility] [address] [place] [address] [phone] Leslie Choudhury Caregiver [address] [facility] [address] [place] [address] [phone] Juventino Jerome Caregiver [address] [facility] [address] [place] [address] [phone] GHULAM WELDON Caregiver [address] [facility] [address] [place] [address] [phone] BRYANT GARCIA Caregiver [address] [facility] [address] [place] [address] [phone] Ivy Santiago Caregiver [address] [facility] [address] [place] [address] [id number] JENNIFER CHRISTIANSON Emergency Contact Unknown [phone] Dasha Christianson Guarantor Unknown [phone] Care Team Providers Care Supervisor Varnish Name Role Phone John Garrett Primary Care Provider Allergies Allergen (clinical drug ingredient) Drug/Non Drug Allergy documented on EMR Reaction Allergy Type Onset Date Status morphine Morphine Sulfate itching Drug Allergy Active hydrochlorothiazide Hydrochlorothiazide rash Drug Aller gy Active Amoxicillin-Pot Clavulanate rash Drug Allergy Active lisinopril lisinopril (uncoded) cough Allergy Active Results Component Value Reference Range Notes Complete Blood Count Auto Di ff Reviewed date:09/02/2024 12:32:41 PM Interpretation: Performing Lab:[facility], [address] [place] [phone] Notes/Report: White Blood Count 7.7 4.8-10.8 X10*3/uL [...] X10*3/uL NRBC Abs Auto 0.000 0.0-0.012 X10*3/uL Comprehensive [place]. Panel Fa st Reviewed date:09/02/2024 04:32:19 PM Interpretation: Performing Lab:[facility], [address] [place] [phone] Notes/Report: Sodium 135 135-145 mmol/L Potassium 3.9 3.3-5.1 mmol/L Chloride 104 96-108 mmol/L Carbon Dioxide 25 22-29 mmol/L Anion Gap 10 12-20 Blood Urea Nitrogen 18 9-16 mg/dL Creatinine 0.87 0.5-1.4 mg/dL Estimated Glomerular Filt Rate > 60 Chronic Kidney Disease: Estimated GFR < 60 mL/min/1.73m2 Severe Kidney Disease: Estimated GFR < 15 mL/min/1.73m2 Glucose Fasting 100 60-99 mg/dL A fasting glucose from 100-125 mg/dl is considered impaired (pre-diabetes). Calcium 10.3 8.4-10.2 mg/dL Bilirubin Total 1.2 0.0-1.0 mg/dL Aspartate Amino Transferase 35 5-31 U/L Alanine Aminotransferase 32 0-31 U/L Total Protein 7.5 6.5-8.0 g/dL Albumin Level 4.1 3.5-5.0 g/dL Alkaline Phosphatase 96 39-117 U/L Lipid Panel Reviewed date:09/02/2024 12:33:19 PM Interpretation: Performing Lab:[address] [phone] Notes/Report: Triglycerides 154 <150 mg/dL Desirable Triglyceride: less than 150 mg/dL Borderline High Triglyceride 150-199 mg/dL High Triglyceride: 200-499 mg/dL Very High Triglyceride: greater than or equal to 5OO mg/dL Cholesterol 225 <200 mg/dL Desirable Cholesterol: less than 200 mg/dL Borderline High Cholesterol: 200-239 mg/dL High Cholesterol: greater than 239 mg/dL LDL Cholesterol Calculated 132 <100 mg/dL Desirable LDL: less than 100 mg/dL Near Optimal/Above Optimal LDL: 110-129 mg/dL Borderline High LDL: 130-159 mg/dL High LDL: 160-189 mg/dL Very High LDL: greater than or equal to 190 mg/dL HDL Cholesterol 63 >40 mg/dL Desirable HDL: greater than 40 mg/dL Note: This HDL assay may give artificially low results in patients with liver disease. Vitamin D 25-OH Total Reviewed date:09/02/2024 01:27:08 PM Interpretation: Performing Lab:[address] [phone] Notes/Report: Vitamin D 25-OH Total 70.7 >30 ng/mL Health Based Reference Values* < 20 ng/mL Deficient 20-30 ng/mL Insufficient > 30 ng/mL Sufficient *Su MIN. N Engl J Med. 2007;357:266-280 Care must be taken in interpreting Vitamin D results from different laboratories and methodologies. Published data demonstrated that results from patients undergoing hemodialysis may show a negative bias when tested with various automated 25-OH vitamin D assays when compared to LC-MS/MS. When testing samples from patients whose predominant form of Vitamin D is Vitamin D2, such as patients receiving Vitamin D2 supplementation, results that are subtherapeutic should be confirmed with another method such as LC-MS/MS. UA ClnCatch+Micro w/rflx Cul t Reviewed date:09/12/2024 04:06:48 PM Interpretation: Performing Lab:[facility], [address] [place] [phone] Notes/Report: Urine, Clean Catch Color Urine Yellow Appearance Urine Clear PH 6.0 5.0-9.0 Glucose Urine UA Negative Negative mg/dL Urine Blood Small (1+) Negative Specific [place] - Urine 1.020 1.005-1.025 Urine Protein Negative Neg-Trace mg/dL Urine Ketones Negative Negative mg/dL Nitrite Urine Negative Negative Leukocyte Esterase Urine Negative Negative RBC Urine 6-10 0-2 /HPF WBC Urine 0-5 0-5 /HPF Squamous Epithelial Cell Urine 0-2 0-2 /HPF Bacteria Urine None Seen None Seen Hyaline Casts Urine 0-2 0-2 /LPF Reason For Referral No Information Medications Medication SIG (Take, Route, Frequency, Duration) [...] 4 hrs for 30 days 03/05/2025 Active Fluticasone Propionate 50 MCG/ACT SPRAY SPRAY [...] Inhalation every 4 hrs 05/01/2023 Not-Takin g Symbicort 80-4.5 MCG/ACT 2 puffs Inhalat ion Twice a day Not-Taking Immunizations Vaccine Route Administration Date Status Comme nts Flu Vaccine Unknown 05/04/2011 Administered Flu Vaccine IM Intramuscular 04/09/2012 Administered Prevnar 13 IM Intramuscular 08/13/2012 Administered PPSV23 (Pnemovax) Unknown 08/13/2012 Administered Flu Vaccine Unknown 05/11/[address] Christina Guillen Flu Vaccine IM Intramuscular 06/02/2014 Administered Fluarix Quadrivalent IM Intramuscular 05/24/2015 Administe red Fluarix Quadrivalent IM Intramuscular 05/30/2016 Administe red Shingles Unknown 12/25/2008 Administered Fluarix Quadrivalent IM Intramuscular 05/01/2017 Administe red PPSV23 (Pnemovax) IM Intramuscular 09/21/2017 Administered Fluarix Quadrivalent IM Intramuscular 04/25/2018 Administe red Fluarix Quadrivalent IM Intramuscular 07/21/2019 Administe red Fluarix Quadrivalent IM Intramuscular 05/07/2020 Administe red Covid Vaccine Unknown 10/08/2020 Administered Pfizer Covid Vaccine Unknown 10/28/2020 Administered Moderna Influenza High Dose IM Intramuscular 07/05/2021 Administer ed SARS-COV-2 Moderna Unknown 07/11/2021 Administered Influenza High Dose IM Intramuscular 05/11/2022 Administer ed Fluarix Quadrivalent IM Intramuscular 04/17/2023 Administe red Fluarix Quadrivalent - 150 IM Intramuscular 04/14/2024 Administered Social History Tobacco Use: Social History Observation [...] Never (0 point) Points 2 Interpretation Negative Problems Problem Type SNOMED Code ICD Code Onset Dates Problem Status W/U Status Risk Notes Problem 785649639 Tubular adenoma (D36.9) Active confirmed Problem 30478551 Vitamin D defici ency (E55.9) Active confirmed Problem Sinusitis (28944855) Sinusitis (J32.9) Active confirmed Problem 27465375 Hypercalcemia (E83.52) Active confirme d Problem 773869557 Other specified menopausal and perimenopausal disorders (N95.8) Active confirmed Problem 5440932 Arthritis (M19.90) Active confirmed Problem 40287049 Lumbar disc dise ase (M51.9) Active confirmed Problem 076002942 Gastroesophageal reflux disease without esophagitis (K21.9) Active confirmed Problem 40911002 Essential hypert ension (I10) Active confirmed Problem 260641371 Mild intermitten t asthma without complication (J45.20) Active confirmed Problem 779782159037273 Moderate persist ent asthma with acute exacerbation (J45.41) Active confirmed Problem 65102263 Sciatica of left side (M54.32) Active confirmed Problem 98746810 Oropharyngeal dysphagia (R13.12) Active confirmed Problem Leukocytosis (016203340) Elevated WBC count (D72.829) Active confirmed Problem 168519944 Pure hypercholesterolemia (E78.00) Active confirmed Problem 237642392 Microscopic jelani turia (R31.29) Active confirmed Problem 375242714 Arthritis of kne e (M17.10) Active confirmed Problem 311764774 Mild intermitten t asthmatic bronchitis with acute exacerbation (J45.21) Active confirmed Vital Signs Blood pressure diastolic 76 mm Hg 03/20/2025 shantel ght is up 4 pounds since 02-16-25 Height 64 in 04/24/2025 weight at home is 170 BP not taken no temp Blood pressure systolic 158 mm Hg 03/20/2025 weig ht is up 4 pounds since 02-16-25 Weight 170 lbs 04/24/2025 weight at home is 170 BP not taken no temp BMI 29.18 kg/m2 04/24/2025 weight at home is 170 BP not taken no temp Encounters Encounter Location Date Provider Diagnosis John Garrett MD [address] [place] [address] [id number] 09/02/2024 John Garrett Blood tests for rout ine general physical examination Z00.00 ; Essential hypertension I10 ; Vitamin D deficiency E55.9 ; Pure hypercholesterolemia E78.00 ; Microscopic hematuria R31.29 and Elevated WBC count D72.829 John Garrett MD [address] [place] [address] [id number] 09/12/2024 John Garrett Pure hypercholestero lemia E78.00 ; Annual physical exam Z00.00 ; Essential hypertension I10 ; Mild intermittent asthma without complication J45.20 and Depression screening Z13.31 John Garrett MD [address] [place] [address] [id number] 01/12/2025 John Garrett Sinusitis J32.9 John Garrett MD [address] [place] [address] [id number] 02/03/2025 John Garrett Sinusitis J32.9 John Garrett MD [address] [place] [address] [id number] 02/16/2025 Jhon Garrett Mild intermittent as thma without complication J45.20 and Sinusitis J32.9 John Garrett MD [address] [place] [address] [id number] 03/20/2025 John Joeardier Eczema L30.9 and Ess ential hypertension I10 John Garrett MD [address] [place] [address] [id number] 04/24/2025 John Garrett Sinusitis J32.9 John Garrett MD [address] [place] [address] [id number] 05/11/2025 John Garrett Sinus congestion R09 .81 John Garrett MD [address] [place] [address] [id number] 09/04/2024 John Garrett Essential hypertensi on I10 John Garrett MD [address] [place] [address] [id number] 01/15/2025 John Garrett MD [address] [place] [address] [id number] 03/05/2025 John Garrett Assessments Encounter Date Diagnosis (ICD Code) Assessment Notes Treatment Notes Treatment Clinical Notes Section Notes 09/02/2024 [address] tests [address] ine general physical examination (ICD-10 - Z00.00) 09/12/2024 Pure hypercholesterolemia (ICD-10 - E78.00) stable, advised on diet , will continue current regiment and will continue to monitor z 09/12/2024 Annual physical exam (ICD-10 - Z00.00) labs reviewed and discussed with patient z 01/12/2025 Sinusitis (ICD-10 - J32.9) patient verbalized understanding of medication and directions for use 02/03/2025 Sinusitis (ICD-10 - J32.9) patient verbalized understnading of medication and directions for use 02/16/2025 Mild intermittent asthma without complication (ICD-10 - J45.20) 03/20/2025 Eczema (ICD-10 - L30.9) to u se her triamcinolone 04/24/2025 Sinusitis (ICD-10 - J32.9) patient verbalized understanding of medication and directions for use 05/11/2025 Sinus congestion (ICD-10 - R09.81) patient verbalized understanding of medicatio and directions for use 09/04/2024 Essential hypertensi on (ICD-10 - I10) 09/02/2024 Essential hypertensi on (ICD-10 - I10) 09/12/2024 Essential hypertensi on (ICD-10 - I10) doing well, will continue current regiment z 02/16/2025 Sinusitis (ICD-10 - J32.9) 03/20/2025 Essential hypertensi on (ICD-10 - I10) doning well on meds, will cntinue curent regiment 09/02/2024 Vitamin D deficiency (ICD-10 - E55.9) 09/12/2024 Mild intermittent asthma without complication (ICD-10 - J45.20) stale, will continue current regiment z 09/02/2024 Pure hypercholesterolemia (ICD-10 - E78.00) 09/12/2024 Depression screening (ICD-10 - Z13.31) negative screen z 09/02/2024 Microscopic hematuri a (ICD-10 - R31.29) 09/02/2024 Elevated WBC count (ICD-10 - D72.829) Plan Of Treatment Pending Test Test Name Order Date Electrocardiogram (EKG) 02/23/2015 Electrocardiogram (EKG) 07/31/2019 CT SINUS NO CONTRAST 10/29/2020 XR CHEST 2 VIEW PA & LAT 05/01/2023 BONE DENSITY DEXA 08/13/2020 US CAROTID BILATERAL DOPPLER 11/21/2011 CT sinus wo con 05/01/2023 Next Appt Details Provider Name:Johnradha Rogers ier, 09/08/2025 07:30:00 AM, [address] [facility], [address], [place], [place], [phone], Provider Name:John Rogers ier, 09/15/2025 01:00:00 PM, [address] [facility], [address], [place], [place], [phone], Insurance Providers Payer Name Payer Address Payer Phone Subscriber Number Group Number Insured Name Patient Relationship to Insured Coverage Start Date Coverage End Date [employer] [address] [place], [place] [phone] [id number] [place], [place] Self - patient is the insured Medical (General) History Medical History History ICD Code hematuria work up by dr ellis colonoscopy 04/27/2008 - due in 5 years; 12/25/[address] Canales; Colonoscopy 06/13/19 - Dr. Canales (no further testing indicated) PFT's 01/21/15 was able to tolerate oxycodone after itc brenda with morphine patient denies an allergy to augmentin t irvin 01/12/25 Surgical History Surgery Date(Month/Year) cholecystectomy
--- OUTSIDE RECORDS SUMMARY | 2025-06-03 19:23 | XMS_ITS | Data Portability ---
Author Organization [place] - [facility], Allergy Address [address] [address] Assessment Encounter Date Assessment Date Assessment LastModified by Organization Details LastModified Time 07/02/2024 07/02/2024 Both earmolds were ground down [...] at their next annual hearing aid fitting. [email or web address] Not available 07/02/2024 09:42:43 07/10/2024 07/10/2024 Ear impressions were taken without complication. Follow-up for fitting of earmolds. [email or web address] Not available 07/10/2024 15:21:57 07/31/2024 07/31/2024 Earmolds were fitted without difficulty. Follow-up if any problems arise. [email or web address] Not available 07/31/2024 07:51:45 10/13/2024 10/13/2024 Earmold was reportedly comfortable and inserted with ease after grinding it down. The right device did not need any adjustment. Follow-up if any problems arise. Not available 10/13/2024 14:02:36 04/20/2025 04/20/2025 Connected software engineer advisor to computer and verified that it is on the latest firmware. Patient states that the devices lower in volume towards the end of the day and sometimes are found off. Suspect excessive battery drain and recommend repair. Patient to grain picker device(s) at their convenience. [email or web address] Not available 04/20/2025 15:47:21 Plan of Treatment Reminders Order Date Submit [...] Sensorine ural hearing loss of bilateral ears [id number] Active 2015 Sensorineu ral hearing loss, bilateral; Note: Date Diagnosed: 03/22/2016 12:36 PM (H90.3) Not Available [facility] 4 03:33:02 Problem Notes None recorded. Procedures Surgical History Date Name Laterality Status Provider Name and Address Organization Details Recorded Time 4 Air only Audio - 43674 completed CATE VASQUEZ, [address], [phone], [facility] 03/06/2024 12:06:20 4 SRT & Speech Recognition - 77256 completed Kian STEVEN [address] [place] [address], [phone], [facility] 03/06/2024 12:06:23 Imaging Results None recorded. Procedure Notes None recorded. Medical Equipment None Reported. Medications Name Sig Start Date Stop Date Status Note LastModified by Organization Details LastModified Time prednisone 10 mg tablet PLEASE SEE ATTACHED FOR DETAILED DIRECTION S active Not Available Not Available No t Available doxycyclin e hyclate 100 mg capsule TAKE 1 CAPSULE BY MOUTH EVERY DAY FOR 10 DAYS active Not Available Not Available No t Available atorvastat in 20 mg tablet 2014 active Medicatio n ID: [id number] Du ration Value: 90 Brand Name: atorvasta tin Send Method: E-Prescri bed Subs Allowed: subs OK Medica tionGener icName: atorvasta tin Not Available Not Available Not Available ketoconazo le 2 % shampoo active Not Available Not Available Not Available azithromyc in 250 mg tablet TAKE DIRECTED PER PACKAGE active Not Available Not Available No t Available ibuprofen 800 mg tablet 2015 active Medicatio n ID: [id number] Du ration Value: 10 Brand Name: ibuprofen [...] mg tablet 2014 active Medicatio n ID: [id number] Du ration Value: 90 Brand Name: valsartan [...] t Available spironolac tone 25 mg tablet TAKE 1 TABLET DAILY WITH FOOD ORALLY ONCE A DAY active Not Available Not Available No t [...] sulfate HFA 90 mcg/actuat ion aerosol inhaler INHALE 1 PUFF INTO THE LUNGS EVERY 4 HOURS NEEDED FOR 30 DAYS active Not Available Not Available No t Available fluticason e propionate 50 mcg/actuat ion nasal spray,susp ension SPRAY 1 SPRAY INTO EACH NOSTRIL EVERY DAY FOR 30 DAYS active Not Available Not Available No t Available amoxicilli n 875 mg-potassi um clavulanat e 125 mg tablet TAKE 1 TABLET BY MOUTH EVERY 12 HOURS X10 DAYS active Not Available Not Available No [...] Diagnosis SNOMED-CT Code Diagnosis ICD10 Code Diagnosis IMO Codes Diagnosis Note [id number] Kian STEVEN [place] [address] [phone] 03/05/2024 12:52:22 03/05/2024 14:23:46 Sensorineural hearing loss of bilateral ears 666659550 H90.3 [id number] Kian STEVEN [place] [address] [place] [phone] 04/16/2024 10:56:04 04/16/2024 16:18:36 Sensorineural hearing loss of bilateral ears 617052262 H90.3 [id number] Kian STEVEN [place] [address] [place] [phone] 05/21/2024 08:51:23 05/22/2024 07:04:37 Sensorineural hearing loss of bilateral ears 558090214 H90.3 [id number] Kian STEVEN [place] [address] [phone] 06/09/2024 09:52:06 06/10/2024 07:19:42 Sensorineural hearing loss of bilateral ears 497087432 H90.3 [id number] Kian STEVEN [place] 100 [facility] 100 [place] [address] 07/02/2024 08:50:29 07/02/2024 14:04:13 Sensorineural hearing loss of bilateral ears 201211811 H90.3 [id number] CATE CHRISTINA, AuD [place] 100 [facility],[place] [address] [place] [address] 07/10/2024 14:42:34 07/14/2024 13:26:21 Sensorineural hearing loss of bilateral ears 400165085 H90.3 [id number] Kian STEVEN [place] [address] [facility],[place] [address] [place] [address] 07/31/2024 15:44:24 08/01/2024 11:54:12 Sensorineural hearing loss of bilateral ears 562496029 H90.3 [id number] CATE VASQUEZ AuD [place] 100 [facility],[place] [address] [place] [address] 10/13/2024 12:54:41 10/15/2024 23:41:15 Sensorineural hearing loss of bilateral ears 065342852 H90.3 [id number] CATE VASQUEZ AuD [place] 100 [facility],[place] [address] [place] [address] 04/20/2025 14:54:45 04/21/2025 10:30:10 Sensorineural hearing loss of bilateral ears 222281054 H90.3 Health Concerns Section Related Observation LastModified by Organization Detai ls LastModified Time None Recorded Concern Status LastModified by Organization Details LastModified Time None Recorded Advance Directives Directive None Recorded Payers Insurance Date Sequence Insurance Name Policy Number Policy Candelario Covered Member ID Candelario Member ID Guarantor Name 04/20/2025 1 [facility]: MEDICARE PPO BLUE (MEDICARE REPLACEMENT PPO) [id number] Dasha Christianson [id number] Dasha Christianson Notes Date Note Type Note Provider Name and Address Organization Details Recorded Time 4 text/html Hearing Technology HistoryReported by PatientReported status of current hearing technologyFor reported condition, patient reportspoor physical fit (both)andsoreness/irritat ion in the helix (both)but reportsin working condition. For sound quality and programming settings, patient reportsthat they are satisfied with current settings and technology. For daily use, patient reportsconsistent use of technology. Patient returned for a fitting of amplification to discuss their ongoing communication needs and progress with amplification. They reported that there are problems with the way that the hearing devices are fitting in the ears. Reported pain around the canal aperture after hours of use. The devices are in warranty at this time. The patient reported no change in hearing or audibility. Kian STEVEN [facility] [place],[address], [place], [address], [facility] 07/02/2024 09:42:57 4 text/html Patient was here for ear impressions. They would like their earmolds to be remade due to pain The style of earmold is a canal.. The material of earmold is hard acrylic. Kian STEVEN [facility],[place] [address], [place], [address], [facility] 07/10/2024 15:22:22 4 text/html Patient was here to grain picker custom made earmolds, remade due to discomfort. The style of earmold is a canal.. The material of earmold is hard acrylic. Kian STEVEN [facility],[place] [facility], [place], [address], [facility] 08/01/2024 10:18:44 5 text/html Patient was here to grain picker custom made earmolds. The style of earmold is a canal cshell.. The earmold selected is hard acrylic. The earmold color is clear. Kian STEVEN [address] [facility],[address], [address], [facility] 10/13/2024 14:03:08 5 text/html Hearing Technology HistoryReported by PatientReported status of current hearing technologyFor sound quality and programming settings, patient reportsthat the right hearing aid is not working as expectedandthat the left hearing aid is not working as expected. For reported condition, patient reportsbattery draining too fastandintermittency (shutting off unexpectedly) (both). Kian STEVEN [address] [facility],[place] [address], [place], [address], [facility] 04/20/2025 15:55:16 OBGyn Episode No OBEpisode recorded.
--- OUTSIDE RECORDS SUMMARY | 2025-06-03 19:24 | XMS_ITS | Clinical Summary ---
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 Activ e albuterol sulfate (PROAIR RESPICLICK) 90 mcg/actuation AePB Inhale 2 puffs into the lungs every 4 (four) hours as needed. Shortness of breath or wheezing 1 each 9 Active Active Problems No known active problems Social History Tobacco Use Types Packs/Day Years Used Date Smoking Tobacco: Former Smokeless Tobacco: Never Education Answer Date Recorded Are you interested in more education? Not on bushra e 12/01/2022 Are you concerned about learning? Not on file 12/01/2022 No 12/01/2022 No 12/01/2022 Digital Access Answer Date Recorded No 12/30/2022 No 12/30/2022 No 12/30/2022 Reliable internet access at home? Not on file 12/30/2022 Device with a working camera? Not on file Comments Unknown Sex and Gender Information Value Date Recorded Sex Assigned at Not on file Legal Sex Female 10:07 PM EDT Gender Identity Not on file Sexual Orientation Not on file Last Filed Vital Signs Vital Sign Reading Time Taken Comments Blood Pressure 147/92 09/15/2018 10:48 AM EST Pulse 117 09/15/2018 12:12 PM EST Temperature 37.6 C (99.6 F) 09/15/2018 10:48 AM EST Respiratory Rate 24 09/15/2018 12:12 PM EST Oxygen Saturation 93% 09/15/2018 12:12 PM EST Inhaled Oxygen Concentration - - Weight 74.4 kg (164 lb) 09/15/2018 10:48 AM EST Height - - Body Mass Index - - Plan of Treatment Health Maintenance Due Date Last Done Comments Adult Td,Tdap Booster 1946 LIPID PANEL 1946 DEPRESSION SCREENING 1958 SMOKING Hx and SMOKELESS TOBACCO SCREENING 1959 HEPATITIS C SCREENING 1964 ZOSTER VACCINES (2 of 3) 02/19/2009 12/25/2008 OSTEOPOROSIS SCREENING INITIAL (ONE-TIME) 2011 PNEUMOCOCCAL VACCINES (50+ years) (2 of 2 - PCV) 09/21/2018 09/21/2017 RSV VACCINE (1 - 1-dose 75+ series) 2021 INFLUENZA VACCINE (#1) 2025 , 07/21/2019, 04/25/2018, Additional history exists COVID-19 VACCINE (2 - 2024- season) 2025 09/30/2020 HEPATITIS A VACCINES Aged Out No long er eligible based on patient's age to complete this topic HIB VACCINES Aged Out No longer eligi ble based on patient's age to complete this topic MENINGOCOCCAL VACCINES (ACWY) Aged Out No longer eligible based on patient's age to complete this topic MENINGOCOCCAL VACCINES (B) Aged Out N o longer eligible based on patient's age to complete this topic Medical Devices Not on file Insurance [place] P[place] BLUE REPLACEMENT [facility] MEDICARE PPO BLUE REPLACEMENT [facility] MEDICARE PPO BLUE REPLACEMENT [facility] MEDICARE PPO BLUE REPLACEMENT [facility] MEDICARE PPO BLUE REPLACEMENT [facility] MEDICARE PPO BLUE REPLACEMENT [place] [address] MEDICARE PPO BLUE REPLACEMENT [place] BL[place] [place] [place] Care Teams Carpentry Teacher Relationship Specialty Start Date End Date John Garrett MD [address] [place] [address] [place] [address] PCP - General 09/15/18 Additional Source Comments The information contained in this document represents components of the legal health record. It is not the complete legal health record.[facility]
--- OUTSIDE RECORDS SUMMARY | 2025-06-03 19:26 | XMS_ITS | Patient Health Record ---
Author Organization [facility] Address [address] [place] [address] Care Team Providers Care Risk Modeler Name Role Phone John Garrett MD Primary Care Provider Martin Barba [phone] Allergies Allergen (clinical drug ingredient) Drug/Non Drug Allergy documented on EMR Reaction Allergy Type Onset Date Status morphine Morphine Sulfate Unknown Drug Allergy Active Reason For Referral No Information Medications Medication SIG (Take, Route, Frequency, Duration) Notes Start Date End Date Status Irbesartan 150 MG 1 tablet Orally Once a day; Duration: 30 day(s) Active Vitamin D 1000 UNIT 1 tablet Orally Once a day; Duration: 30 day(s) Active Spironolactone 25 MG 1 tablet Orally; Du ration: 30 day(s) Active Atorvastatin Calcium 20mg Active Immunizations Vaccine Route Administration Date Status Comme nts Influenza Unknown 04/06/2018 Administered Influenza Unknown 11/12/2018 Pending Problems Problem Type SNOMED Code ICD Code Onset Dates Problem Status W/U Status Risk Notes Problem Screening for malignant neoplasm of colon (844646352) Encounter for screening for malignant neoplasm of colon (Z12.11) Active confirmed Problem Preprocedural examination (310876771498825) Preprocedural examination (Z01.818) Active confirmed Problem History of adenomatous polyp of colon (056479855) Hx of adenomatous colonic polyps (Z86.010) Active confirmed Plan Of Treatment Future Test Test Name Order Date COLONOSCOPY 10/14/2013 COLONOSCOPY 11/12/2018 Insurance Providers Payer Name Payer Address Payer Phone Subscriber Number Group Number Insured Name Patient Relationship to Insured Coverage Start Date Coverage End Date [facility] [address] [place], [place] [id number] COCO HERNANDEZ Self - patient is the insured Medical (General) History Medical History History ICD Code colonoscopy 04/27/2008-negat mickey, including biopsies-no colitis; tubular adenoma removed in 2004; colonoscopy 12/2013-1 small tubular adenoma removed Hypertension Asthma Hyperlipidema Denies PA,DM,CVA,renal disease Fatty liver--workup for that was negative in 2008, including iron studies, viral serologies, autoimmune studies, and alpha-1 antitrypsin level--a liver profile in 2008 showed an AST of 41 and ALT of 56, with a normal bilirubin and albumin GERD--she had an upper GI se ortiz in 2011 describing a small hiatal hernia with associated reflux--however, she uses omeprazole only occasionally--she has never had an upper endoscopy Surgical History Surgery Date(Month/Year) Breast reduction surgery [facility] Knee Partial hysterectomy Cataract on the left Right shoulder replacement and rotator c uff repair 08/2018
== END 2025-06-03 14:56 | disposition home or self-care (01) ==
LOC: HO.MAMMO 14:55
PROVIDERS: PCP Internal Medicine; Visit Provider Internal Medicine
DX: Z12.31 Encounter for screening mammogram for malignant neoplasm of breast (principal)
CPT/HCPCS: 77063; 77067

== ENCOUNTER → 2025-06-03 15:15 | Outpatient (BNV) | payer MEDICARE, SELFPAY | PROVIDERS: PCP Internal Medicine; Visit Provider Radiology Body Imaging | DX: Z12.31 Encounter for screening mammogram for malignant neoplasm of breast (principal) | CPT/HCPCS: 77063; 77067 ==